=== PATIENT | male | born 1940 | race Caucasian/White ===

== ENCOUNTER → 2016-08-03 | Outpatient (CLI) | payer OTHER ==
[~2016-08-03] MED LIST: AMLO-110 PO; ATEN50TA8 PO; CLOP1TAB15 PO; EZET10TA63 PO; FRS/80 PO; POTA20TA13 PO; ROSU20TA PO; SPIR100T PO
[2016-08-03 11:43] LABS: ALT/SGPT 28 U/L (12-78); BLOOD UREA NITROGEN 25 mg/dl (7-18); BUN/CREATININE RATIO 15.4 (10-20); CALCIUM 9.4 mg/dl (8.5-10.1); CARBON DIOXIDE 25 mmol/L (21-32); CHLORIDE 106 mmol/L (98-107); GLUCOSE 105 mg/dl (70-99); POTASSIUM 4.2 mmol/L (3.5-5.1); SODIUM 141 mmol/L (136-145)
[2016-08-03 11:45] LABS: CHOLESTEROL 143 mg/dl (0-200); CHOLESTEROL/HDL RATIO 3.8; HDL CHOLESTEROL 38 mg/dl; TRIGLYCERIDES 442 mg/dl (0-150)
[2016-08-03 11:51] LABS: ESTIMATED AVERAGE GLUCOSE 120 mg/dl; HA1C FLAG Normal (Normal)
== END | disposition home or self-care (01) ==
LOC: C.LAB1850 10:20
PROVIDERS: ATTEND Family Medicine
DX: E78.00 Pure hypercholesterolemia, unspecified (principal); I10 Essential (primary) hypertension; R73.9 Hyperglycemia, unspecified

== ENCOUNTER → 2017-02-05 | Outpatient (CLI) | payer OTHER ==
[2017-02-05 12:36] LABS: ESTIMATED AVERAGE GLUCOSE 126 mg/dl; HA1C FLAG Normal (Normal)
[2017-02-05 15:13] LABS: ALT/SGPT 25 U/L (12-78); BLOOD UREA NITROGEN 20 mg/dl (7-18); BUN/CREATININE RATIO 14.5 (10-20); CALCIUM 8.8 mg/dl (8.5-10.1); CARBON DIOXIDE 23 mmol/L (21-32); CHLORIDE 110 mmol/L (98-107); CHOLESTEROL 140 mg/dl (0-200); GLUCOSE 106 mg/dl (70-99); POTASSIUM 3.9 mmol/L (3.5-5.1); SODIUM 140 mmol/L (136-145); TRIGLYCERIDES 330 mg/dl (0-150); VERY LOW DENSITY LIPOPROT CALC 66 mg/dl
[2017-02-05 15:17] LABS: HDL CHOLESTEROL 35 mg/dl; LDL CHOLESTEROL CALCULATED 39 mg/dl
== END | disposition home or self-care (01) ==
LOC: C.LAB1850 10:14
PROVIDERS: ATTEND Family Medicine
DX: E78.00 Pure hypercholesterolemia, unspecified (principal); I10 Essential (primary) hypertension; R73.9 Hyperglycemia, unspecified

== ENCOUNTER → 2017-08-05 | Outpatient (CLI) | payer OTHER ==
[2017-08-05 09:53] LABS: ALT/SGPT 20 U/L (12-78); BLOOD UREA NITROGEN 19 mg/dl (7-18); CALCIUM 8.8 mg/dl (8.5-10.1); CARBON DIOXIDE 25 mmol/L (21-32); CREATININE 1.48 mg/dl (0.60-1.40); GLUCOSE 96 mg/dl (70-99); POTASSIUM 3.6 mmol/L (3.5-5.1); SODIUM 141 mmol/L (136-145)
[2017-08-05 09:56] LABS: CHOLESTEROL 123 mg/dl (0-200); LDL CHOLESTEROL CALCULATED 54 mg/dl
== END | disposition home or self-care (01) ==
LOC: C.LAB1850 07:22
PROVIDERS: ATTEND Family Medicine
DX: E78.00 Pure hypercholesterolemia, unspecified (principal); I10 Essential (primary) hypertension; R73.9 Hyperglycemia, unspecified

== ENCOUNTER 2019-01-21 10:35 | Inpatient (IN) ==
[2019-01-21] MEDS ORDERED: ALBUT/IPRATROP 3MG/0.5MG NEB 3 ML VIAL NEB STA (10:47)
[2019-01-21] MEDS ORDERED: SODIUM CHLORIDE 0.9% 500 ML IV SCH (11:00)
[2019-01-21 11:17] LABS: Basophils # (auto) 0.03 K/uL (0-0.2); Basophils % (auto) 0.3 %; Eosinophils # (auto) 0.17 K/uL (0-0.5); Eosinophils % (auto) 1.8 %; Hematocrit (blood only) 34.8 % (42-52); Hemoglobin 11.8 g/dL (14.0-18.0); Immature Granulocytes # (auto) 0.05 K/uL (0.00-0.02); Immature Granulocytes % (auto) 0.5 %; Lymphocytes # (auto) 1.78 K/uL (1.2-3.4); Lymphocytes % (auto) 19.2 %; Mean Corpuscular Hgb Conc 33.9 g/dL (32-36); Mean Corpuscular Volume 95.1 fL (80-100); Mean Platelet Volume 11.6 fL (7.4-10.4); Monocytes # (auto) 1.03 K/uL (0.11-0.59); Monocytes % (auto) 11.1 %; Neutrophils % (auto) 67.1 %; Platelet Count 350 K/uL (130-400); RDW Coefficient of Variation 12.8 % (11.5-14.5); RDW Standard Deviation 44.2 fL (36.4-46.3); Red Blood Count 3.66 M/uL (4.7-6.1); White Blood Count 9.26 K/uL (4.8-10.8)
--- NOTE | 2019-01-21 11:26 | XRay Report ---
XR chest 1V portable HISTORY: 79 years-old Male weakness acute weakness COMPARISON: Chest CT 12/14/2017 TECHNIQUE: Portable AP view of the chest FINDINGS: Chronic subpleural reticular opacities, greatest within the right upper lobe are redemonstrated. Prog ressive opacities of the right upper lobe. Severe emphysema with hyperinflation. Cardiomediastinal an d hilar silhouettes are unchanged. Calcification of the thoracic aortic arch. No pneumothorax, large pleural effusion or overt pulmonary edema. Chronic blunting of the costophrenic angles. Degenerative changes of the shoulders and spine. IMPRESSION: 1. Emphysema with chronic fibrotic changes redemonstrated. 2. Slightly progressed opacities of the right upper lobe may also reflect areas of fibrosis with a smith perimposed pneumonitis difficult to exclude. Correlate clinically. 3. Mild cardiomegaly without overt pulmonary edema. The above report was generated using voice recognition software. It may contain grammatical, syntax o r spelling errors. Electronically signed by: Italo Solis M.D. 01/21/2019 11:25 AM
[2019-01-21 11:32] LABS: Alanine Aminotransferase 25 U/L (12-78); Albumin Level 3.8 gm/dl (3.4-5.0); Aspartate Aminotransferase 23 U/L (15-37); Blood Urea Nitrogen 70 mg/dl (7-18); Calcium 9.5 mg/dl (8.5-10.1); Carbon Dioxide 24 mmol/L (21-32); Chloride 99 mmol/L (98-107); Est GFR (African American) 34.2; Est GFR (Non-African American) 29.5; Glucose 92 mg/dl (70-99); Magnesium 2.1 mg/dl (1.8-2.4); Sodium 133 mmol/L (136-145)
--- NOTE | 2019-01-21 11:42 | CT Scan Report ---
CT head/brain wo con CLINICAL HISTORY: 79 years-old Male with confusion, off balance. Acutely altered mental status TECHNIQUE: Multiple axial CT images of the head were obtained without contrast. A dose lowering tech nique was utilized adhering to the principles of ALARA. CT DOSE: 537.48 mGy.cm COMPARISON: None. FINDINGS: No acute intracranial hemorrhage, midline shift, intracranial mass, hydrocephalus, territorial ischem ia or abnormal extra-axial collection. Age-related involutional changes with mild ex vacuo ventriculo megaly. Cerebral vascular calcifications are noted. The calvarium is intact. The paranasal sinuses, mastoid air cells, and middle ear cavities are clear . IMPRESSION: No acute intracranial abnormality. The above report was generated using voice recognition software. It may contain grammatical, syntax o r spelling errors. Electronically signed by: Italo Solis M.D. 01/21/2019 11:41 AM
[2019-01-21 11:43] LABS: Albumin Globulin Ratio 0.8 (0.9-2); Alkaline Phosphatase 39 U/L (45-117); Bilirubin,Total 0.5 mg/dl (0.2-1); Globulin 4.7 gm/dl (2.5-4.0); Total Protein 8.5 gm/dl (6.4-8.2); Troponin I 0.023 ng/ml (0-0.045)
[2019-01-21] MEDS ORDERED: SODIUM CHLORIDE 0.9% 1000ML 1,000 ML IV ONE (11:53)
[2019-01-21 12:17] LABS: Appearance Urine Cloudy (Clear); Bacteria Urine Automated Negative (Negative); Bilirubin Urine Negative (Negative); Blood Urine Negative (Negative); Color Urine Yellow; Epithelial Cell Urine Auto >30 /lpf (0-5); Glucose Urine UA Negative (Negative); Ketones Urine Negative (Negative); Leukocyte Esterase Urine 1+ (Negative); Nitrite Urine Negative (Negative); Protein Urine Negative (Negative); RBC Urine Automated 0-4 /hpf (0-4); Specific Gravity Urine 1.016 (1.000-1.030); Urobilinogen Urine Negative (Negative)
--- NOTE | 2019-01-21 12:45 | History & Physical Report ---
Date of Service January 21, 2019 Assessment & Plan (1) Orthostasis: Hold antihypertensives and diuretics. Administer IV fluids. Telemetry Present on Admission?: Yes (2) Dehydration: Hold diuretics. Administer IV fluids. Monitor intake and output Present on Admission?: Yes (3) XOCHITL (acute kidney injury): Hold diuretics. Administer IV fluids. Serial lab studies Present on Admission?: Yes (4) Sinus bradycardia: Telemetry. Discontinue low-dose atenolol Present on Admission?: Yes (5) Chronic kidney disease, stage 3: See above Present on Admission?: Yes (6) COPD (chronic obstructive pulmonary disease): Stable. Continue Combivent inhaler (7) Chronic respiratory failure: Stable. Continue oxygen at 4 L/min (8) DVT prophylaxis: Heparin subcu History of Present Illness Chief Complaint: Weakness, altered mental status Primary Care Provider: Yisel Pittman MD 79-year-old male who lives alone who is found to have altered mental status today and sent to the ED for evaluation. He was found to be volume depleted with acute kidney injury with orthostatic hypotension. He is on multiple blood pressure medications and diuretics. He is also on atenolol and is noted to be bradycardic in the 50s. At the time of my examination he is alert and oriented to name and place. Family is in attendance. He is a full CODE STATUS. He is on low-dose atenolol which will be discontinued at this time. He is receiving IV fluids. Will stop all diuretics for the time being and also hold amlodipine. He has COPD with chronic respiratory failure and normally uses 4 L of oxygen per minute. Chest x-ray reveals scarring and emphysema. He is admitted for further evaluation and treatment Allergies Allergy/AdvReac Type Severity Reaction Status Date / Time No Known Allergies Allergy Verified 01/21/19 12:14 Home Medications Home Medications Medication Instructions Recorded Confirmed Type amlodipine 5 mg PO QAM 01/15/19 01/21/19 History atenolol 12.5 mg PO QAM 01/15/19 01/21/19 History clopidogrel 75 mg PO QAM 01/15/19 01/21/19 History fenofibrate nanocrystallized 145 mg PO QAM 01/15/19 01/21/19 History furosemide 40 mg PO QAM 01/15/19 01/21/19 History hydrocodone-acetaminophen 1 tab PO TID PRN 01/15/19 01/21/19 History ipratropium-albuterol [Combivent 1 puff INHALATION QID 01/15/19 01/21/19 History Respimat] omeprazole 20 mg PO QAM 01/15/19 01/21/19 History rosuvastatin 20 mg PO QAM 01/15/19 01/21/19 History tiotropium bromide [Spiriva with 1 cap INHALATION DAILY 01/15/19 01/21/19 History HandiHaler] potassium chloride 20 meq PO QAM 01/21/19 01/21/19 History spironolactone 100 mg PO QAM 01/21/19 01/21/19 History Past Med/Surg History Social History Feels Safe at Home: Yes Smoking Status: Never smoker Review of Systems Review of Systems: Constitutional-no fever or chills ENT-no blurred vision, no double vision, no epistaxis, no sore throat Respiratory-no cough, no wheezing, no shortness of breath Cardiac-no palpitations, no chest pain, no syncope GI-no nausea, vomiting, diarrhea, melena, hematochezia -no urinary retention, no urinary incontinence, no dysuria, no hematuria Musculoskeletal-no joint pain, no muscle tenderness Skin-no bruising, no rashes, no pruritus Neuro-altered mental status with more confusion. Psych-no depression, no anxiety Physical Exam Physical Exam: General-alert and oriented x2, no fevers, no chills HEENT-head atraumatic and normocephalic, TMs intact bilaterally, pupils equal and reactive to light, extraocular muscles intact Neck-no lymphadenopathy or thyromegaly, trachea midline Chest-bilateral inspiratory coarse rales. No rhonchi. No wheezing. No dullness to percussion Cardiac-bradycardic regular rhythm. Normal S1 and S2. No JVD Abdomen-normal bowel sounds, nontender, no hepatosplenomegaly Extremities-no cyanosis, clubbing, or edema Neuro-cranial nerves II through XII intact, motor and sensory function within normal limits, strength symmetrical with mild generalized weakness, no focal deficits Psych-normal affect, normal mood. He appears to have some baseline dementia Results & Data Vital Signs (Past 12 Hours) Vital Signs Temp Pulse Pulse Pulse Resp BP BP 01/21/19 11:54 57 L 20 106/49 L 01/21/19 11:04 61 16 01/21/19 10:55 36.4 C L 90 66 18 147/55 H Pulse Ox 01/21/19 11:54 96 01/21/19 11:04 100 01/21/19 10:55 97 Laboratory Results 01/21/19 10:56 01/21/19 10:56 PG Care Time/CCT Total # of Minutes Spent Total Time Spent with Patient: Total time spent is greater than 50% in coordination of care (as documented) at patient's floor/unit and/or counseling patient:
--- NOTE | 2019-01-21 13:01 | Emergency Department Note ---
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 Per patient water pump operator, the patient when to his PCP last week for abdominal pain. Per water pump operator, the patient was diagnosed with severe intestinal inflammation and was put on medicine. The patients water pump operator states that the patient has had a fever today with dizziness and lightheadedness--he has been off balance. The patient denies diarrhea, vomiting and pain. Per water pump operator, the patient has not had any treatment prior to arrival, including a breathing treatment. Home Medications Home Medications Medication Instructions Recorded Confirmed Type amlodipine 5 mg PO QAM 01/15/19 01/21/19 History atenolol 12.5 mg PO QAM 01/15/19 01/21/19 History clopidogrel 75 mg PO QAM 01/15/19 01/21/19 History fenofibrate nanocrystallized 145 mg PO QAM 01/15/19 01/21/19 History furosemide 40 mg PO QAM 01/15/19 01/21/19 History hydrocodone-acetaminophen 1 tab PO TID PRN 01/15/19 01/21/19 History ipratropium-albuterol [Combivent 1 puff INHALATION QID 01/15/19 01/21/19 History Respimat] omeprazole 20 mg PO QAM 01/15/19 01/21/19 History rosuvastatin 20 mg PO QAM 01/15/19 01/21/19 History tiotropium bromide [Spiriva with 1 cap INHALATION DAILY 01/15/19 01/21/19 History HandiHaler] potassium chloride 20 meq PO QAM 01/21/19 01/21/19 History spironolactone 100 mg PO QAM 01/21/19 01/21/19 History Allergies Allergy/AdvReac Type Severity Reaction Status Date / Time No Known Allergies Allergy Verified 01/21/19 12:14 Past Med/Surg History Medical History Chronic respiratory failure (Chronic) COPD (chronic obstructive pulmonary disease) (Chronic) Sinus bradycardia (Acute) XOCHITL (acute kidney injury) (Acute) Orthostasis (Acute) Dehydration (Acute) Acute respiratory failure with hypoxia HTN (hypertension) CVA (cerebral vascular accident) Carotid bruit present Chronic kidney disease, stage 3 Chronic venous insufficiency Dysphagia Social History Feels Safe at Home: Yes Smoking Status: Never smoker Review of Systems See HPI for pertinent positives & negatives. and A total of 10 systems reviewed and were otherwise negative Physical Exam Vital Signs Vital Signs - 24 hr 01/21/19 10:55 01/21/19 11:04 01/21/19 11:47 Temperature 36.4 C L Temperature Source Oral Sepsis Recent Fever Within 48 Hours No Sepsis Action Taken by Nursing No Action Required Pulse Rate - Lying 49 L Pulse Rate - Sitting 87 Pulse Rate - Standing 76 Pulse Rate 90 Pulse Rate [Apical] 66 Pulse Rate [Finger] 61 Respiratory Rate 18 16 Respiratory Effort / Characteristics Spontaneous Blood Pressure - Lying 115/49 L Blood Pressure - Sitting 135/118 H Blood Pressure- Standing 93/48 L Blood Pressure 147/55 H Blood Pressure [Left Arm] Blood Pressure Mean 85 Blood Pressure Mean [Left Arm] Pulse Oximetry 97 100 Oxygen Delivery Method Nasal Cannula Nasal Cannula Oxygen Flow Rate 4 4 01/21/19 11:54 Temperature Temperature Source Sepsis Recent Fever Within 48 Hours Sepsis Action Taken by Nursing Pulse Rate - Lying Pulse Rate - Sitting Pulse Rate - Standing Pulse Rate Pulse Rate [Apical] Pulse Rate [Finger] 57 L Respiratory Rate 20 Respiratory Effort / Characteristics Blood Pressure - Lying Blood Pressure - Sitting Blood Pressure- Standing Blood Pressure Blood Pressure [Left Arm] 106/49 L Blood Pressure Mean Blood Pressure Mean [Left Arm] 68 Pulse Oximetry 96 Oxygen Delivery Method Nasal Cannula Oxygen Flow Rate 4 GENERAL: Patient is in no acute distress. HEENT: No acute trauma, normocephalic atraumatic, mucous membranes moist, no nasal congestion, no scleral icterus. NECK: No stridor, no adenopathy, no meningismus, trachea is midline. LUNGS: Diminished breath sounds bilaterally, few wheezes and few crackles bilaterally. HEART: Without murmurs gallops or rubs, regular rate and rhythm. ABDOMEN: Soft, nontender, bowel sounds positive, no hernias, no peritonitis. EXTREMITIES: No cyanosis or edema, full range of motion of all the joints without pain or difficulty, no signs for acute trauma. NEUROLOGIC: Some mild confusion but patient can follow simple commands, no focal motor deficit, awake and seems alert, no cerebellar dysfunction or extremity drift. SKIN: No rash, no jaundice, no diaphoresis. Course 1042: Past medical records reviewed. The patient was evaluated in room B8. A complete history and physical exam was performed. 1154: Orthostatic vital signs are positive. 1204: I discussed the patient's case with Dr. Dan [facility] Hospitalist. He will evaluate the patient for further management. 1206: I updated the patient and water pump operator on the plan. They verbally agree and understand. Consultations Consultation #1: I discussed the patient's case with Dr. Dan [facility] Hospitalist. He will evaluate the patient for further management. Time: 12:04 Administered Medications Discontinued Medications Albuterol (Duoneb) 3 ml NEB NOW STA Stop: 01/21/19 10:48 Last Admin: 01/21/19 11:00 Dose: 3 ml Documented by: [id number] Sodium Chloride (Nss) 500 mls @ 999 mls/hr IV .Q31M STEFAN Stop: 01/21/19 11:30 Last Infusion: 01/21/19 12:31 Dose: 0 mls/hr Documented by: [id number] Admin: 01/21/19 11:58 Dose: 999 mls/hr Documented by: [id number] Sodium Chloride (Nss 1000ml) 1,000 mls @ 999 mls/hr IV .Q1H1M ONE Stop: 01/21/19 12:53 Last Infusion: 01/21/19 13:00 Dose: 0 mls/hr Documented by: [id number] Admin: 01/21/19 11:58 Dose: 999 mls/hr Documented by: [id number] Medical Decision Making Differential Diagnosis Differentials include anemia, NM, dehydration, electrolyte imbalance, pneumonia, CHF, bronchitis, stroke, intracranial bleeding. Medical Records Attestation: I reviewed the patient's medical records. Home Medications Current Medication List: was personally reviewed by me Laboratory Data Attestation: I reviewed the patient's lab results. Result diagrams: 01/21/19 10:56 01/21/19 10:56 Lab Results 01/21/19 01/21/19 01/21/19 Range/Units 10:56 10:56 10:56 WBC 9.26 (4.8-10.8) K/uL RBC 3.66 L (4.7-6.1) M/uL Hgb 11.8 L (14.0-18.0) g/dL Hct 34.8 L (42-52) % MCV 95.1 (80-100) fL MCH 32.2 (25-34) pg MCHC 33.9 (32-36) g/dL RDW Std Deviation 44.2 (36.4-46.3) fL RDW Coeff of Brandon 12.8 (11.5-14.5) % Plt Count 350 (130-400) K/uL MPV 11.6 H (7.4-10.4) fL Immature Gran % (Auto) 0.5 % Neut % (Auto) 67.1 % Lymph % (Auto) 19.2 % Marin % (Auto) 11.1 % Eos % (Auto) 1.8 % Baso % (Auto) 0.3 % Immature Gran # (Auto) 0.05 H (0.00-0.02) K/uL Neut # (Auto) 6.20 (1.4-6.5) K/uL Lymph # (Auto) 1.78 (1.2-3.4) K/uL Marin # (Auto) 1.03 H (0.11-0.59) K/uL Eos # (Auto) 0.17 (0-0.5) K/uL Baso # (Auto) 0.03 (0-0.2) K/uL Sodium 133 L (136-145) mmol/L Potassium 5.0 (3.5-5.1) mmol/L Chloride 99 (98-107) mmol/L Carbon Dioxide 24 (21-32) mmol/L Anion Gap 10.0 (3-11) BUN 70 H (7-18) mg/dl Creatinine 2.06 H (0.6-1.4) mg/dl Est Cr Clr Drug Dosing Not Reportable Est GFR ( Amer) 34.2 Est GFR (Non-Af Amer) 29.5 BUN/Creatinine Ratio 34.0 H (10-20) Glucose 92 (70-99) mg/dl Calcium 9.5 (8.5-10.1) mg/dl Magnesium 2.1 (1.8-2.4) mg/dl Total Bilirubin 0.5 (0.2-1) mg/dl AST 23 (15-37) U/L ALT 25 (12-78) U/L Alkaline Phosphatase 39 L (45-117) U/L Troponin I 0.023 (0-0.045) ng/ml Total Protein 8.5 H (6.4-8.2) gm/dl Albumin 3.8 (3.4-5.0) gm/dl Globulin 4.7 H (2.5-4.0) gm/dl Albumin/Globulin Ratio 0.8 L (0.9-2) TSH 2.620 (0.300-4.500) uIu/ml Free T4 0.97 (0.8-1.6) ng/dl Urine Color Urine Appearance (Clear) Urine pH (4.5-7.5) Ur Specific Sparkman (1.000-1.030) Urine Protein (Negative) Urine Glucose (UA) (Negative) Urine Ketones (Negative) Urine Blood (Negative) Urine Nitrite (Negative) Urine Bilirubin (Negative) Urine Urobilinogen (Negative) Ur Leukocyte Esterase (Negative) Urine WBC (Auto) (0-5) /hpf Urine RBC (Auto) (0-4) /hpf U Hyaline Cast (Auto) (0-5) /lpf U Epithel Cells (Auto) (0-5) /lpf Urine Bacteria (Auto) (Negative) 01/21/19 Range/Units 12:00 WBC (4.8-10.8) K/uL RBC (4.7-6.1) M/uL Hgb (14.0-18.0) g/dL Hct (42-52) % MCV (80-100) fL MCH (25-34) pg MCHC (32-36) g/dL RDW Std Deviation (36.4-46.3) fL RDW Coeff of Brandon (11.5-14.5) % Plt Count (130-400) K/uL MPV (7.4-10.4) fL Immature Gran % (Auto) % Neut % (Auto) % Lymph % (Auto) % Marin % (Auto) % Eos % (Auto) % Baso % (Auto) % Immature Gran # (Auto) (0.00-0.02) K/uL Neut # (Auto) (1.4-6.5) K/uL Lymph # (Auto) (1.2-3.4) K/uL Marin # (Auto) (0.11-0.59) K/uL Eos # (Auto) (0-0.5) K/uL Baso # (Auto) (0-0.2) K/uL Sodium (136-145) mmol/L Potassium (3.5-5.1) mmol/L Chloride (98-107) mmol/L Carbon Dioxide (21-32) mmol/L Anion Gap (3-11) BUN (7-18) mg/dl Creatinine (0.6-1.4) mg/dl Est Cr Clr Drug Dosing Est GFR ( Amer) Est GFR (Non-Af Amer) BUN/Creatinine Ratio (10-20) Glucose (70-99) mg/dl Calcium (8.5-10.1) mg/dl Magnesium (1.8-2.4) mg/dl Total Bilirubin (0.2-1) mg/dl AST (15-37) U/L ALT (12-78) U/L Alkaline Phosphatase (45-117) U/L Troponin I (0-0.045) ng/ml Total Protein (6.4-8.2) gm/dl Albumin (3.4-5.0) gm/dl Globulin (2.5-4.0) gm/dl Albumin/Globulin Ratio (0.9-2) TSH (0.300-4.500) uIu/ml Free T4 (0.8-1.6) ng/dl Urine Color Yellow Urine Appearance Cloudy A (Clear) Urine pH 5.0 (4.5-7.5) Ur Specific Sparkman 1.016 (1.000-1.030) Urine Protein Negative (Negative) Urine Glucose (UA) Negative (Negative) Urine Ketones Negative (Negative) Urine Blood Negative (Negative) Urine Nitrite Negative (Negative) Urine Bilirubin Negative (Negative) Urine Urobilinogen Negative (Negative) Ur Leukocyte Esterase 1+ H (Negative) Urine WBC (Auto) 5-10 H (0-5) /hpf Urine RBC (Auto) 0-4 (0-4) /hpf U Hyaline Cast (Auto) 5-10 H (0-5) /lpf U Epithel Cells (Auto) >30 H (0-5) /lpf Urine Bacteria (Auto) Negative (Negative) Imaging Data Radiologist's Impression: Radiology results as stated below per my review and the radiologist's interpretation: CT head/brain wo con CLINICAL HISTORY: 79 years-old Male with confusion, off balance. Acutely altered mental status TECHNIQUE: Multiple axial CT images of the head were obtained without contrast. A dose lowering technique was utilized adhering to the principles of ALARA. CT DOSE: 537.48 mGy.cm COMPARISON: None. FINDINGS: No acute intracranial hemorrhage, midline shift, intracranial mass, hyd rocephalus, territorial ischemia or abnormal extra-axial collection. Age-related involutional changes with mild ex vacuo ventriculomegaly. Cerebral vascular calcifications are noted. The calvarium is intact. The paranasal sinuses, mastoid air cells, and middle ear cavities are clear. IMPRESSION: No acute intracranial abnormality. The above report was generated using voice recognition software. It may contain grammatical, syntax or spelling errors. Electronically signed by: Italo Solis M.D. 01/21/2019 11:41 AM XR chest 1V portable HISTORY: 79 years-old Male weakness acute weakness COMPARISON: Chest CT 12/14/2017 TECHNIQUE: Portable AP view of the chest FINDINGS: Chronic subpleural reticular opacities, greatest within the right upper lobe are redemonstrated. Progressive opacities of the right upper lobe. Severe emphysema with hyperinflation. Cardiomediastinal and hilar silhouettes are unchanged. Calcification of the thoracic aortic arch. No pneumothorax, large pleural effusion or overt pulmonary edema. Chronic blunting of the costophrenic angles. Degenerative changes of the shoulders and spine. IMPRESSION: 1. Emphysema with chronic fibrotic changes redemonstrated. 2. Slightly progressed opacities of the right upper lobe may also reflect areas of fibrosis with a superimposed pneumonitis difficult to exclude. Correlate clinically. 3. Mild cardiomegaly without overt pulmonary edema. The above report was generated using voice recognition software. It may contain grammatical, syntax or spelling errors. Electronically signed by: Italo Solis M.D. 01/21/2019 11:25 AM ECG Data Attestation: I personally reviewed and interpreted this ECG as follows: Indication: weakness Rate (beats per minute): 57 Rhythm: sinus bradycardia Findings: + other (old anterior infarct, old inferior infarct); no ST elevation Blood Pressure Blood Pressure Findings: Low blood pressure Blood Pressure Disposition: further management by hospitalist MDM Narrative There is no leukocytosis. The patient is somewhat anemic but this is baseline looking back at previous testing. Creatinine is quite elevated at over 2, this is a change for the patient. The patient is orthostatic by our testing, I suspect he is quite dehydrated. No concerning liver enzyme elevation. Patient appeared to be in a euthyroid state. EKG showed a sinus rhythm, no acute ischemia. Cardiac enzyme testing x1 is not consistent with acute cardiac injury. Urinalysis does not show infection. Brain CT shows no acute bleed or mass-effect. Chest film shows some chronic findings, no obvious pneumonia, no CHF. The patient was given a DuoNeb. He received IV saline, 1.5 L. He seems to be resting fairly comfortably at present. Patient presents with weakness, dizziness and shortness of breath. He was orthostatic. He is quite dehydrated and has acute kidney injury. I do think a hospital stay is warranted. I spoke to the patient and case management assistant. The on- call hospitalist was consulted. Impression & Plan XOCHITL (acute kidney injury), Orthostasis, Weakness, Dehydration Discharge Plan Visit Data *Final* Discharge Date/Time: 01/21/19 13:12 Chief Complaint: Dizziness ED Provider: Sebastián Hernández Discharge Problem: XOCHITL (acute kidney injury), Orthostasis, Weakness, Dehydration Patient Disposition: Admitted As Inpatient Discharge Instructions Interventions: ED Discharge Assessment Last Done: 01/21/19 13:12 The scribe's documentation has been prepared under my direction and personally reviewed by me in its entirety. I confirm that the note above accurately reflects all work, treatment, procedures, and medical decision making performed by me.
[2019-01-21] MEDS ORDERED: ALUMINUM/MAGNESIUM SUSP 30 ML UDC PO PRN (14:08)
[2019-01-21] MEDS ORDERED: ONDANSETRON INJ 2 MG/ML 2 ML VIAL IV PRN (14:08)
[2019-01-21] MEDS: SODIUM CHLORIDE 0.9% 1000ML 1,000 ML IV SCH (14:50)
[2019-01-21 15:21] LABS: INR 1.2 (0.9-1.1); Partial Thromboplastin Ratio 0.9; Partial Thromboplastin Time 25.5 Seconds (21.0-31.0); Prothrombin Time 11.8 Seconds (9.0-12.0)
[2019-01-21] MEDS: IPRATROPIUM BROMIDE/ALBUTEROL respimat INH INH SCH ×3 (16:48→20:56)
[2019-01-21] MEDS: HEPARIN SOD 5,000 UNIT/0.5 ML VIAL SQ SCH (20:56)
[2019-01-22] MEDS: SODIUM CHLORIDE 0.9% 1000ML 1,000 ML IV SCH ×2 (03:02→14:49)
[2019-01-22] MEDS: ACETAMINOPHEN 325 MG TAB PO PRN (03:58)
[2019-01-22] MEDS: IPRATROPIUM BROMIDE/ALBUTEROL respimat INH INH SCH ×4 (07:48→21:27)
[2019-01-22] MEDS: HEPARIN SOD 5,000 UNIT/0.5 ML VIAL SQ SCH ×2 (07:48→21:33)
[2019-01-22] MEDS: FENOFIBRATE NANOCRYSTALLIZED 145 MG TABLET PO SCH (07:49)
[2019-01-22] MEDS: CLOPIDOGREL BISULFATE 75 MG TAB PO SCH (07:49)
[2019-01-22] MEDS: ROSUVASTATIN CALCIUM 20 MG TAB PO SCH (07:49)
[2019-01-22] MEDS: PANTOprazole 40 MG TAB PO SCH (07:49)
[2019-01-22] MEDS: TIOTROPIUM BROMIDE 5 PUFF/90 MCG INH INH SCH (07:49)
[2019-01-22 08:13] LABS: Basophils # (auto) 0.03 K/uL (0-0.2); Basophils % (auto) 0.3 %; Hematocrit (blood only) 29.6 % (42-52); Hemoglobin 9.8 g/dL (14.0-18.0); Immature Granulocytes # (auto) 0.04 K/uL (0.00-0.02); Immature Granulocytes % (auto) 0.4 %; Lymphocytes # (auto) 1.67 K/uL (1.2-3.4); Mean Corpuscular Hgb Conc 33.1 g/dL (32-36); Mean Platelet Volume 11.4 fL (7.4-10.4); Monocytes # (auto) 0.97 K/uL (0.11-0.59); Monocytes % (auto) 9.9 %; Neutrophils # (auto) 6.92 K/uL (1.4-6.5); Neutrophils % (auto) 70.4 %; Platelet Count 240 K/uL (130-400); RDW Standard Deviation 45.7 fL (36.4-46.3); Red Blood Count 3.05 M/uL (4.7-6.1); White Blood Count 9.83 K/uL (4.8-10.8)
[2019-01-22 08:53] LABS: BUN Creatinine Ratio 31.9 (10-20); Calcium 8.6 mg/dl (8.5-10.1); Creatinine Clr Calc Pharmacy 35.7 ml/min; Est GFR (African American) 44.1; Est GFR (Non-African American) 38.1; Potassium 4.1 mmol/L (3.5-5.1)
--- NOTE | 2019-01-22 15:04 | Hospitalist Progress Note ---
Date of Service January 22, 2019 Assessment & Plan (1) XOCHITL (acute kidney injury): Cr on admission was elevated at 2.0 with GFR of 29.5 one week prior to admission his Cr was 1.0 and GFR 67 Cr improved to 1.67 on IV fluids and by holding Lasix and Spironolactone starting to drink a little more, no diarrhea will keep on IV fluids today, likely stop tomorrow XOCHITL is due to dehydration (2) Dehydration: improving with IV fluids and holding diuretics making clear urine (3) Orthostasis: no longer feeling light headed now with volume repletion PT/OT consults (4) Sinus bradycardia: HR dropping into the 30s at times otherwise in junctional rhythm in the 50's due to Atenolol, this will be stopped on discharge (5) Drug toxicity: quite possible that Atenolol built up in system since it is renally excreted and he has bradycardia may take a few days for it to wash out Atenolol stopped indefinitely (6) Chronic kidney disease, stage 3: CKD stage III/II, baseline GFR ranges in high 40 to low 60's GFR up to 38.1 today (7) COPD (chronic obstructive pulmonary disease): Stable. Continue Combivent inhaler chronically on 4L NC says that he was not taking Spiriva due to cost will look into getting him assistance (8) Chronic respiratory failure: Stable. Continue oxygen at 4 L/min (9) DVT prophylaxis: Heparin subcu (10) Hematuria: resolved after one episode last night Subjective patient feeling a little better today with IV fluids he is eating and drinking a little more he had manuel placed last night for reported hematuria the manuel bag has clear, yellow urine, no signs of blood or clots asked RN to pull manuel and cancelled urology consult he has not been up walking much, will ask PT/OT to evaluate he denies chest pain, dyspnea, nausea, vomiting, diarrhea reviewed labs, Cr improved to 1.67 from 2.0 on admission with IV fluids electrolytes stable WBC is normal, Hb down to 9.8 from 11.8 but likely the 11.8 was falsely elevated with volume contraction on the monitor he is in junctional rhythm in the 50's, did experience drops into the 30's while resting Review of Systems Review of Systems: All systems reviewed & are unremarkable except as noted in HPI & below Constitutional: + fatigue and + weakness; no fever and no sweats Respiratory: no cough and no dyspnea Cardiovascular: no chest pain and no edema Gastrointestinal: no abdominal pain, no nausea, no vomiting, no constipation and no diarrhea/loose stools Physical Exam Constitutional: WD/WN, vitals as above Eyes: PERRL, conjunctivae normal, anicteric sclerae ENMT: external ear and nose normal, oropharynx normal Neck: trachea midline, no thyromegaly Respiratory: normal respiratory effort, lungs clear to auscultation Cardiovascular: Rate/Rhythm: regular rhythm and + bradycardic Heart Sounds: normal S1 and normal S2; no murmur Vessels: no JVD Extremities: normal capillary refill; no edema Gastrointestinal (Abdomen): normal bowel sounds, soft, nontender, no hepatosplenomegaly Musculoskeletal: no cyanosis or clubbing, extremities motor strength 5/5 Skin: no rashes, warm and dry Neurologic: patellar DTR's 2+ bilat, sensation intact and PERRL, EOMI, accommodation nl, no face palsy, no dysarthria Psychiatric: A+Ox3, euthymic affect Lymphatic: no cervical or axillary lymphadenopathy Results & Data Vital Signs (Past 12 Hours) Vital Signs Temp Pulse Pulse Resp BP Pulse Ox Pulse Ox 01/22/19 13:05 99 01/22/19 12:02 36.4 C L 52 L 16 111/55 L 100 01/22/19 08:13 36.5 C 53 L 16 110/45 L 100 01/22/19 08:00 48 L 01/22/19 04:46 36.5 C 57 L 20 126/60 94 Laboratory Results Laboratory Results - last 24 hr 01/21/19 01/22/19 01/22/19 14:42 07:45 07:45 WBC 9.83 RBC 3.05 L Hgb 9.8 L Hct 29.6 L MCV 97.0 MCH 32.1 MCHC 33.1 RDW Std Deviation 45.7 RDW Coeff of [place] 13.0 Plt Count 240 MPV 11.4 H Immature Gran % (Auto) 0.4 Neut % (Auto) 70.4 Lymph % (Auto) 17.0 Cass % (Auto) 9.9 Eos % (Auto) 2.0 Baso % (Auto) 0.3 Immature Gran # (Auto) 0.04 H Neut # (Auto) 6.92 H Lymph # (Auto) 1.67 Cass # (Auto) 0.97 H Eos # (Auto) 0.20 Baso # (Auto) 0.03 PT 11.8 INR 1.2 H APTT 25.5 PTT Ratio 0.9 Sodium 136 Potassium 4.1 D Chloride 105 Carbon Dioxide 25 Anion Gap 6.0 BUN 53 H Creatinine 1.67 H D Est Cr Clr Drug Dosing 35.7 Est GFR ( Amer) 44.1 Est GFR (Non-Af Amer) 38.1 BUN/Creatinine Ratio 31.9 H Glucose 91 Calcium 8.6 Medications Administered Current Inpatient Medications Acetaminophen (Tylenol) 650 mg PO Q4H PRN PRN Reason: Pain or Fever Stop: 02/20/19 14:07 Last Admin: 01/22/19 03:58 Dose: 650 mg Documented by: Al Hydrox/Mg Hydrox/Simethicone (Maalox) 15 ml PO Q4H PRN PRN Reason: Dyspepsia Stop: 02/20/19 14:07 Last Admin: 01/21/19 19:47 Dose: 15 ml Documented by: Albuterol (Combivent Respimat) 1 puffs INH QID [facility] Stop: 02/20/19 14:07 Last Admin: 01/22/19 12:51 Dose: 1 puffs Documented by: Clopidogrel Bisulfate (Plavix) 75 mg PO QAM [facility] Stop: 02/21/19 08:59 Last Admin: 01/22/19 07:49 Dose: 75 mg Documented by: [facility]ibrate (Tricor) [facility] [place] Stop: 02/21/19 08:59 Last Admin: 01/22/19 07:49 Dose: 145 mg Documented by: Heparin Sodium (Porcine) (Heparin Sodium (Porcine)) 5,000 units SQ Q12 [facility] Stop: 02/20/19 20:59 Last Admin: 01/22/19 07:48 Dose: 5,000 units Documented by: Sodium Chloride (Nss 1000ml) 1,000 mls @ 80 mls/hr IV .[id number] [facility] Stop: 02/20/19 14:29 Last Admin: 01/22/19 14:49 Dose: 80 mls/hr Documented by: Ondansetron HCl (Zofran) 4 mg IV Q6H PRN PRN Reason: Nausea Stop: 02/20/19 14:07 Pantoprazole Sodium (Protonix) 40 mg PO QAM [facility] Stop: 02/21/19 08:59 Last Admin: 01/22/19 07:49 Dose: 40 mg Documented by: Rosuvastatin Calcium (Crestor) 20 mg PO QAM [facility] Stop: 02/21/19 08:59 Last Admin: 01/22/19 07:49 Dose: 20 mg Documented by: Tiotropium [place] (Spiriva) 1 puffs INH DAILY [facility] Stop: 02/21/19 08:59 Last Admin: 01/22/19 07:49 Dose: 1 puffs Documented by: PG Care Time/CCT Total # of Minutes Spent Total Time Spent with Patient: Total time spent is greater than 50% in coordination of care (as documented) at patient's floor/unit and/or counseling patient:
[2019-01-23] MEDS: ACETAMINOPHEN 325 MG TAB PO PRN (02:29)
[2019-01-23] MEDS: SODIUM CHLORIDE 0.9% 1000ML 1,000 ML IV SCH (02:29)
[2019-01-23 06:24] LABS: Basophils # (auto) 0.02 K/uL (0-0.2); Basophils % (auto) 0.4 %; Eosinophils % (auto) 5.4 %; Hematocrit (blood only) 26.6 % (42-52); Hemoglobin 8.9 g/dL (14.0-18.0); Immature Granulocytes # (auto) 0.03 K/uL (0.00-0.02); Immature Granulocytes % (auto) 0.5 %; Lymphocytes # (auto) 1.15 K/uL (1.2-3.4); Lymphocytes % (auto) 20.8 %; Mean Corpuscular Hgb Conc 33.5 g/dL (32-36); Mean Platelet Volume 11.2 fL (7.4-10.4); Monocytes # (auto) 0.66 K/uL (0.11-0.59); Monocytes % (auto) 11.9 %; Neutrophils # (auto) 3.38 K/uL (1.4-6.5); Platelet Count 200 K/uL (130-400); RDW Coefficient of Variation 12.9 % (11.5-14.5); Red Blood Count 2.77 M/uL (4.7-6.1); White Blood Count 5.54 K/uL (4.8-10.8)
[2019-01-23 07:00] LABS: BUN Creatinine Ratio 23.6 (10-20); Creatinine Clr Calc Pharmacy 38.4 ml/min; Est GFR (African American) 48.3; Est GFR (Non-African American) 41.7; Potassium 3.8 mmol/L (3.5-5.1)
[2019-01-23] MEDS: CLOPIDOGREL BISULFATE 75 MG TAB PO SCH (09:39)
[2019-01-23] MEDS: IPRATROPIUM BROMIDE/ALBUTEROL respimat INH INH SCH ×2 (09:39→12:28)
[2019-01-23] MEDS: FENOFIBRATE NANOCRYSTALLIZED 145 MG TABLET PO SCH (09:39)
[2019-01-23] MEDS: PANTOprazole 40 MG TAB PO SCH (09:39)
[2019-01-23] MEDS: ROSUVASTATIN CALCIUM 20 MG TAB PO SCH (09:39)
[2019-01-23] MEDS: TIOTROPIUM BROMIDE 5 PUFF/90 MCG INH INH SCH (09:39)
[2019-01-23] MEDS: HEPARIN SOD 5,000 UNIT/0.5 ML VIAL SQ SCH (09:40)
[2019-01-23 13:06] LABS: Hematocrit (blood only) 30.7 % (42-52); Hemoglobin 10.3 g/dL (14.0-18.0)
--- NOTE | 2019-01-23 16:11 | Discharge Summary ---
Date of Service January 23, 2019 Admission HPI Per Admitting Provider 79-year-old male who lives alone who is found to have altered mental status today and sent to the ED for evaluation. He was found to be volume depleted with acute kidney injury with orthostatic hypotension. He is on multiple blood pressure medications and diuretics. He is also on atenolol and is noted to be bradycardic in the 50s. At the time of my examination he is alert and oriented to name and place. Family is in attendance. He is a full CODE STATUS. He is on low-dose atenolol which will be discontinued at this time. He is receiving IV fluids. Will stop all diuretics for the time being and also hold amlodipine. He has COPD with chronic respiratory failure and normally uses 4 L of oxygen per minute. Chest x-ray reveals scarring and emphysema. He is admitted for further evaluation and treatment Admission Exam Per Admitting Provider General-alert and oriented x2, no fevers, no chills HEENT-head atraumatic and normocephalic, TMs intact bilaterally, pupils equal and reactive to light, extraocular muscles intact Neck-no lymphadenopathy or thyromegaly, trachea midline Chest-bilateral inspiratory coarse rales. No rhonchi. No wheezing. No dullness to percussion Cardiac-bradycardic regular rhythm. Normal S1 and S2. No JVD Abdomen-normal bowel sounds, nontender, no hepatosplenomegaly Extremities-no cyanosis, clubbing, or edema Neuro-cranial nerves II through XII intact, motor and sensory function within normal limits, strength symmetrical with mild generalized weakness, no focal deficits Psych-normal affect, normal mood. He appears to have some baseline dementia Principal Diagnosis Acute kidney injury Discharge Exam Constitutional WD/WN, vitals as above Eyes PERRL, conjunctivae normal, anicteric sclerae ENMT external ear and nose normal, oropharynx normal Neck trachea midline, no thyromegaly Respiratory normal respiratory effort, lungs clear to auscultation Cardiovascular Rate/Rhythm: regular rhythm and + bradycardic Heart Sounds: normal S1 and normal S2; no murmur Vessels: no JVD Extremities: normal capillary refill; no edema Gastrointestinal (Abdomen) normal bowel sounds, soft, nontender, no hepatosplenomegaly Musculoskeletal no cyanosis or clubbing, extremities motor strength 5/5 Skin no rashes, warm and dry Neurologic patellar DTR's 2+ bilat, sensation intact and PERRL, EOMI, accommodation nl, no face palsy, no dysarthria Psychiatric A+Ox3, euthymic affect Lymphatic no cervical or axillary lymphadenopathy Discharge Data Allergies Allergy/AdvReac Type Severity Reaction Status Date / Time No Known Allergies Allergy Verified 01/29/19 08:57 Consultations 01/21/19 12:04 ED Decision to Admit Stat Ordered Studies 01/21/19 10:47 CT head/brain wo con Stat Hospital Course (1) XOCHITL (acute kidney injury): Cr on admission was elevated at 2.0 with GFR of 29.5 one week prior to admission his Cr was 1.0 and GFR 67 Cr improved to 1.5 on IV fluids and by holding Lasix and Spironolactone starting to drink a little more, no diarrhea stopped IV fluids morning of discharge eating and drinking much better (2) Dehydration: resolved with IV fluids and holding diuretics making clear urine (3) Orthostasis: no longer feeling light headed now with volume repletion PT/OT consults, clear to return to home (4) Sinus bradycardia: HR dropping into the 30s at times but only when sleeping otherwise in junctional rhythm in the 50's and 60's when awake due to Atenolol, this will be stopped on discharge (5) Drug toxicity: quite possible that Atenolol built up in system since it is renally excreted and he has bradycardia may take a few days for it to wash out Atenolol stopped indefinitely (6) Chronic kidney disease, stage 3: CKD stage III/II, baseline GFR ranges in high 40 to low 60's GFR up to baseline range (7) COPD (chronic obstructive pulmonary disease): Stable. Continue Combivent inhaler chronically on 4L NC says that he was not taking Spiriva due to cost will look into getting him assistance (8) Chronic respiratory failure: Stable. Continue oxygen at 4 L/min (9) Hematuria: resolved after one episode manuel removed the next day, urinating without difficulty and without hematuria if he would have further episodes could consider outpatient urology appt (10) DVT prophylaxis: Heparin subcu Total Time Total Time Spent Total Time Spent (In Minutes): 35 minutes Total Time Includes: Examination of the Patient, Discharge Planning and Medication Reconciliation Discharge Plan Discharge Items Patient Disposition: Home - Self-Care Reason For Visit: VOLUME DEPLETION,ORTHOSTATIC HYPOTENSION Discharge Diagnosis: Acute kidney injury Bradycardia Condition: Good Discharge Goals: Improve function and Increase independence Activity: Resume your previous activity Non-emergency contact: Primary Care Provider Call non-emergency contact if: you have any medication questions, your symptoms worsen and you have a fever Follow-up/Referrals: Yisel Pittman MD [Primary Care Provider] - 01/29/19 9:10 am (Please, follow up at Dr. Pittman's office with her associate, Violet TINSLEY, on January 29 at 9:10 am. *If you need to change this appointment, call their office at [phone]. IF YOU HAVE PROBLEMS WITH THE COPAYS OF YOUR MEDICATIONS, YOUR INSURANCE HAS A MEMBER'S ADVOCATE WHO MAY BE ABLE TO HELP YOU. YOU CAN REACH THE ADVOCATE BY CALLING [phone]. ) Diet: Heart Healthy Addtl Provider Instructions: Medications: see the changes below - ADVAIR: added, use this twice a day scheduled for COPD following medications are stopped, DO NOT take them again - AMLODIPINE: blood pressure medication that was stopped on admission, blood pressure stable - ATENOLOL: stopped due to slow heart rate, do not take again - SPIRONOLACTONE: stop this diuretic as you came in for dehydration Acute kidney injury: resolved, Cr down to 1.55 from 2.0, this is close to your baseline was due to dehydration, likely a result from poor intake and diuretic use for this reason, Spironolactone has been stopped to prevent this again Bradycardia: slow heart rate that is likely due to Atenolol, this medication has been stopped slowest heart rates are when you are sleeping which can be normal typical heart rate is in the 50-60 range while you are awake Evaluated by physical therapy, you are strong enough to return home COPD: you can take the Spiriva home with you, my lead pony rider checking to see if another medication would be more affordable will prescribe you Advair to use twice a day, you can take this in addition to the Spiriva for now FOLLOW UP - Dr. Pittman on 01/29 as scheduled Prescriptions: Continued potassium chloride 20 mEq tablet extended release 20 meq PO QAM RF: 0 furosemide 80 mg tablet 40 mg PO QAM RF: 0 rosuvastatin 20 mg tablet 20 mg PO QAM RF: 0 Combivent Respimat 20-100 mcg/actuation Mist 1 puff INHALATION QID RF: 0 Discontinued spironolactone 100 mg tablet 100 mg PO QAM RF: 0 atenolol 25 mg tablet 12.5 mg PO QAM RF: 0 amlodipine 5 mg tablet 5 mg PO QAM RF: 0 No Action fenofibrate nanocrystallized 145 mg tablet 145 mg PO DAILY Qty: 90 RF: 1 clopidogrel 75 mg tablet 75 mg PO DAILY Qty: 90 RF: 1 hydrocodone-acetaminophen 5-325 mg tablet 1 tab PO TID PRN (Reason: Pain) 10 Days Qty: 30 RF: 0 fluticasone propion-salmeterol [Advair Diskus] 250-50 mcg/dose blister with device 1 puffs INH BID Qty: 14 RF: 3 Stand-Alone Forms: [facility] Discharge Orders: Discharge Order (Routine); Ordered 01/23/19 Ordered By: Simone Nichols Admission Data Admit Date/Time: 01/21/19 12:47 Attending Provider: Simone Nichols Admit Provider: Jose Juarez Primary Care Provider: Yisel Pittman Service: Telemetry Other Interventions: Discharge Summary Assessment (RN) Last Done: 01/23/19 14:03 Pending Studies at Discharge: No DC Date/Time DO NOT enter until pt leaves facility: 01/23/19 15:43
== END 2019-01-23 15:43 | disposition home or self-care (01) | DRG 682 ==
LOC: ED 10:35 → SUATTDRO 12:47 → 2N 12:47
DX: Z79.899 Other long term (current) drug therapy; N17.9 Acute kidney failure, unspecified; J96.10 Chronic respiratory failure, unspecified whether with hypoxia or hypercapnia; G93.41 Metabolic encephalopathy; N18.3 Chronic kidney disease, stage 3 (moderate); T44.7X5A Adverse effect of beta-adrenoreceptor antagonists, initial encounter; I95.1 Orthostatic hypotension; J43.9 Emphysema, unspecified; Z79.02 Long term (current) use of antithrombotics/antiplatelets; E86.0 Dehydration; Z99.81 Dependence on supplemental oxygen; R00.1 Bradycardia, unspecified; R31.9 Hematuria, unspecified

== ENCOUNTER 2019-02-13 10:19 | Inpatient (IN) ==
--- NOTE | 2019-02-13 10:59 | Emergency Department Note ---
Entered by Emily Diego acting as a scribe for Munir Gamino DO History of Present Illness General Chief complaint: Shortness of Breath/Dyspnea Time Seen by Provider: 02/13/19 10:45 Source: patient and EMS Mode of arrival: EMS Limitations: no limitations History of Present Illness Onset (ago): day(s) 3 Location: chest Radiation: non-radiation Pain Consistency: + constant Relieved By: + other (Oxygen, DuoNeb) Exacerbated By: + movement Associated symptoms: + weakness and + other (+diarrhea, +lightheaded, -abdominal pain); no chest pain Treatments prior to arrival: other (DuoNeb, Oxygen) The patient is an 79 year old male who presents to the ED with complaints of shortness of breath. He was brought to the ED via EMS. A DuoNeb given in the field has provided some relief. He is always on 4 to 5L NC. Exertion worsens his symptoms. His family states he has experienced diarrhea recently. His stools have been "dark brown" in color. He last had diarrhea this morning. The patient also complains of feeling weak and lightheaded. He denies any abdominal pain or chest pain. Home Medications Home Medications Medication Instructions Recorded Confirmed Type Combivent Respimat 1 puff INHALATION QID 01/15/19 02/05/19 History furosemide 40 mg PO QAM 01/15/19 02/05/19 History rosuvastatin 20 mg PO QAM 01/15/19 02/05/19 History potassium chloride 20 meq PO QAM 01/21/19 02/05/19 History clopidogrel 75 mg tablet 75 mg PO DAILY #90 tab 01/28/19 02/05/19 Rx fenofibrate nanocrystallized 145 145 mg PO DAILY #90 tab 01/28/19 02/05/19 Rx mg tablet fluticasone 250 mcg-salmeterol 50 1 puffs INH BID #14 ea 01/30/19 02/05/19 Rx mcg/dose blistr powdr for inhalation Oxygen Home #1 ea 02/05/19 02/05/19 History aspirin 325 mg tablet 325 mg PO QAM #30 tab 02/05/19 02/13/19 History atenolol 25 mg tablet 25 mg PO .COMPLEX tab 02/05/19 02/05/19 History clopidogrel 75 mg tablet 75 mg PO DAILY #90 tab 02/05/19 02/05/19 History spironolactone 100 mg tablet 100 mg PO DAILY 02/05/19 02/05/19 History Allergies Allergy/AdvReac Type Severity Reaction Status Date / Time No Known Allergies Allergy Verified 02/13/19 11:35 Past Med/Surg History Medical History Chronic respiratory failure (Chronic) COPD (chronic obstructive pulmonary disease) (Chronic) Sinus bradycardia (Acute) XOCHITL (acute kidney injury) (Acute) Orthostasis (Acute) Dehydration (Acute) Acute respiratory failure with hypoxia HTN (hypertension) CVA (cerebral vascular accident) Carotid bruit present Chronic kidney disease, stage 3 Chronic venous insufficiency Dysphagia Family History Other Family history non-contributory Social History Preferred Language: Amharic Communication Ability: Effective Art History Instructor Required: No Beliefs That Will Affect Care: None Current Living Situation: Alone Current Living Situation Comment: friends live close by and check on pt frequently Feels Safe at Home: Yes Smoking Status: Former smoker Tobacco Type: cigarettes ; Second Hand Exposure: No ; Hx Alcohol Use: Yes Alcohol type: wine Hx Substance Use: No Review of Systems See HPI for pertinent positives & negatives. and A total of 10 systems reviewed and were otherwise negative Physical Exam Vital Signs Vital Signs - 24 hr 02/13/19 10:28 02/13/19 10:30 02/13/19 10:46 Temperature 36.2 C L Temperature Source Rectal Sepsis Recent Fever Within 48 Hours No Sepsis New/Unexplained Change in Mental Status No Sepsis Action Taken by Nursing No Action Required Oxygen Flow Rate - Titration 5 Pulse Oximetry Post Tiitration 98 Pulse Rate 97 H 92 H Pulse Rate from SpO2 Sensor 96 H 94 H Respiratory Rate 21 27 H Blood Pressure 107/58 L 108/43 L Blood Pressure Mean 74 64 Pulse Oximetry 91 91 Oxygen Delivery Method Nasal Cannula Oxygen Flow Rate 4 02/13/19 10:58 02/13/19 11:00 02/13/19 11:07 Temperature Temperature Source Sepsis Recent Fever Within 48 Hours Sepsis New/Unexplained Change in Mental Status Sepsis Action Taken by Nursing Oxygen Flow Rate - Titration Pulse Oximetry Post Tiitration Pulse Rate 98 H Pulse Rate from SpO2 Sensor 98 H Respiratory Rate 21 Blood Pressure 105/51 L Blood Pressure Mean 69 Pulse Oximetry 98 98 100 Oxygen Delivery Method Nasal Cannula Nasal Cannula Oxygen Flow Rate 5 4 02/13/19 11:30 Temperature Temperature Source Sepsis Recent Fever Within 48 Hours Sepsis New/Unexplained Change in Mental Status Sepsis Action Taken by Nursing Oxygen Flow Rate - Titration Pulse Oximetry Post Tiitration Pulse Rate 105 H Pulse Rate from SpO2 Sensor 97 H Respiratory Rate 20 Blood Pressure 115/54 L Blood Pressure Mean 74 Pulse Oximetry 100 Oxygen Delivery Method Oxygen Flow Rate CONSTITUTIONAL/VITAL SIGNS: Reviewed / noted above. GENERAL: Non-toxic in appearance. INTEGUMENTARY: Warm and pale. Skin is pale. HEAD: Normocephalic. EYES: without scleral icterus or trauma. ENT/OROPHARYNX: clear and moist. LYMPHADENOPATHY/NECK: Is supple without lymphadenopathy or meningismus. RESPIRATORY: Lungs clear and equal. CARDIOVASCULAR: Regular rate and rhythm. GI/ABDOMEN: Soft and nontender. No organomegaly or pulsatile mass. No rebound or guarding. Normal bowel sounds. EXTREMITIES: Warm and well perfused. BACK: No CVA tenderness. NEUROLOGICAL: Intact without focal deficits. PSYCHIATRIC: normal affect. MUSCULOSKELETAL: Normally developed with good muscle tone. Course 1050: The patient was evaluated in room B3B and a complete history and physical were performed. 1059: Nursing informed me the patients H&H is 6.5. 1105: I discussed the patients case with Dr. Ventura, [facility]. The patient will be further evaluated. 1110: I reevaluated the patient. He is resting comfortably. I discussed my recommendation he remain in the hospital for further evaluation and management and he verbalized complete understanding and agreement. He was also consented f or blood. Consultations Consultation #1: I discussed the patients case with Dr. Ventura, [facility]. The patient will be further evaluated. Time: 11:05 Administered Medications Discontinued Medications Famotidine (Pepcid 20mg Iv Push) 20 mg IV ONE STA Stop: 02/13/19 11:01 Last Admin: 02/13/19 11:06 Dose: 20 mg Documented by: [id number] Sodium Chloride (Nss) 500 mls @ 999 mls/hr IV .Q31M STEFAN Stop: 02/13/19 11:30 Last Infusion: 02/13/19 11:42 Dose: 0 mls/hr Documented by: [id number] Admin: 02/13/19 11:06 Dose: 999 mls/hr Documented by: [id number] Medical Decision Making Differential Diagnosis Differential Diagnosis includes but is not limited to dehydration, stroke, anemia, hypoglycemia, hyponatremia, hypernatremia, urinary tract infection, pneumonia, bronchitis, sepsis, gastroenteritis, additional abdominal pathology, metabolic abnormalities and infections. Medical Records Attestation: I reviewed the patient's medical records. Home Medications Current Medication List: was personally reviewed by me Laboratory Data Attestation: I reviewed the patient's lab results. Result diagrams: 02/13/19 10:53 02/13/19 10:53 Lab Results 02/13/19 02/13/19 02/13/19 Range/Units 10:53 10:53 10:53 WBC 14.46 H (4.8-10.8) K/uL RBC 1.93 L (4.7-6.1) M/uL Hgb 6.1 L* (14.0-18.0) g/dL POC Hgb (14.0-18.0) g/dl Hct 18.8 L* (42-52) % POC Hct (42-52) % MCV 97.4 (80-100) fL MCH 31.6 (25-34) pg MCHC 32.4 (32-36) g/dL RDW Std Deviation 46.6 H (36.4-46.3) fL RDW Coeff of Brandon 13.1 (11.5-14.5) % Plt Count 541 H (130-400) K/uL MPV 10.2 (7.4-10.4) fL Immature Gran % (Auto) 1.2 % Neut % (Auto) 75.3 % Lymph % (Auto) 15.3 % [place] % (Auto) 7.9 % Eos % (Auto) 0.1 % Baso % (Auto) 0.2 % Immature Gran # (Auto) 0.18 H (0.00-0.02) K/uL Neut # (Auto) 10.88 H (1.4-6.5) K/uL Lymph # (Auto) 2.21 (1.2-3.4) K/uL [place] # (Auto) 1.14 H (0.11-0.59) K/uL Eos # (Auto) 0.02 (0-0.5) K/uL Baso # (Auto) 0.03 (0-0.2) K/uL RBC Morphology Unremarkable PT 12.1 H (9.0-12.0) Seconds INR 1.2 H (0.9-1.1) APTT 22.5 (21.0-31.0) Seconds PTT Ratio 0.8 POC Sodium (135-144) mEq/L Sodium 141 (136-145) mmol/L POC Potassium (3.3-5.0) mEq/L Potassium 4.3 (3.5-5.1) mmol/L POC Chloride (101-112) mEq/L Chloride 108 H (98-107) mmol/L Carbon Dioxide 21 (21-32) mmol/L POC Total CO2 (24-31) mEq/l Anion Gap 12.0 H (3-11) POC Anion Gap (16-25) mmol/L POC BUN (7-18) mg/dl BUN 64 H (7-18) mg/dl Creatinine 1.85 H (0.6-1.4) mg/dl POC Creatinine (0.6-1.3) mg/dl Est Cr Clr Drug Dosing 33.6 ml/min Est GFR ( Amer) 39.0 Est GFR (Non-Af Amer) 33.6 BUN/Creatinine Ratio 34.5 H (10-20) Glucose 135 H (70-99) mg/dl POC Glucose (other) (70-99) mg/dl Calcium 8.2 L (8.5-10.1) mg/dl POC Ioniz Calcium Elaine (1.12-1.32) mmol/l Total Bilirubin 0.4 (0.2-1) mg/dl AST 14 L (15-37) U/L ALT 16 (12-78) U/L Alkaline Phosphatase 34 L (45-117) U/L Troponin I 0.025 (0-0.045) ng/ml Total Protein 6.3 L (6.4-8.2) gm/dl Albumin 2.8 L (3.4-5.0) gm/dl Globulin 3.5 (2.5-4.0) gm/dl Albumin/Globulin Ratio 0.8 L (0.9-2) POC Stool Occult Blood (Negative) Crossmatch 02/13/19 02/13/19 02/13/19 Range/Units 10:53 10:58 10:58 WBC (4.8-10.8) K/uL RBC (4.7-6.1) M/uL Hgb (14.0-18.0) g/dL POC Hgb 6.5 L* (14.0-18.0) g/dl Hct (42-52) % POC Hct 19 L* (42-52) % MCV (80-100) fL MCH (25-34) pg MCHC (32-36) g/dL RDW Std Deviation (36.4-46.3) fL RDW Coeff of Brandon (11.5-14.5) % Plt Count (130-400) K/uL MPV (7.4-10.4) fL Immature Gran % (Auto) % Neut % (Auto) % Lymph % (Auto) % [place] % (Auto) % Eos % (Auto) % Baso % (Auto) % Immature Gran # (Auto) (0.00-0.02) K/uL Neut # (Auto) (1.4-6.5) K/uL Lymph # (Auto) (1.2-3.4) K/uL [place] # (Auto) (0.11-0.59) K/uL Eos # (Auto) (0-0.5) K/uL Baso # (Auto) (0-0.2) K/uL RBC Morphology PT (9.0-12.0) Seconds INR (0.9-1.1) APTT (21.0-31.0) Seconds PTT Ratio POC Sodium 140 (135-144) mEq/L Sodium (136-145) mmol/L POC Potassium 4.4 (3.3-5.0) mEq/L Potassium (3.5-5.1) mmol/L POC Chloride 104 (101-112) mEq/L Chloride (98-107) mmol/L Carbon Dioxide (21-32) mmol/L POC Total CO2 18 L (24-31) mEq/l Anion Gap (3-11) POC Anion Gap 23.0 (16-25) mmol/L POC BUN 64 H (7-18) mg/dl BUN (7-18) mg/dl Creatinine (0.6-1.4) mg/dl POC Creatinine 1.8 H (0.6-1.3) mg/dl Est Cr Clr Drug Dosing ml/min Est GFR ( Amer) Est GFR (Non-Af Amer) BUN/Creatinine Ratio (10-20) Glucose (70-99) mg/dl POC Glucose (other) 138 H (70-99) mg/dl Calcium (8.5-10.1) mg/dl POC Ioniz Calcium Elaine 1.20 (1.12-1.32) mmol/l Total Bilirubin (0.2-1) mg/dl AST (15-37) U/L ALT (12-78) U/L Alkaline Phosphatase (45-117) U/L Troponin I (0-0.045) ng/ml Total Protein (6.4-8.2) gm/dl Albumin (3.4-5.0) gm/dl Globulin (2.5-4.0) gm/dl Albumin/Globulin Ratio (0.9-2) POC Stool Occult Blood Positive A (Negative) Crossmatch See Detail Imaging Data Radiologist's Impression: Radiology results as stated below per my review and the radiologist's interpretation: XR chest 1V portable CLINICAL HISTORY: 79 years-old Male presenting with weakness. TECHNIQUE: Portable upright AP view of the chest was obtained. COMPARISON: 01/21/[address] from 12/14/2017. FINDINGS: Atherosclerosis of the aortic arch. Cardiac silhouette normal in size. Reticular opacities in the right upper lung and left lung base and to lesser lesser extent the left upper lung. No new focal opacity. No large effusion or pneumothorax. Degenerative changes of the thoracic spine. Upper abdomen normal. IMPRESSION: 1. Chronic reticular infiltrates bilaterally. No superimposed infiltrate to suggest pneumonia. Electronically signed by: Devon Johnson M.D. 02/13/2019 11:19 AM ECG Data Attestation: I personally reviewed and interpreted this ECG as follows: Indication: SOB/dyspnea Rate (beats per minute): 95 Findings: no ST elevation and no ectopy Blood Pressure Blood Pressure Findings: Low blood pressure MDM Narrative This is a 79-year-old male who presents to the ED with a chief complaint of shortness of breath, weakness and some diarrhea. The patient reports diarrhea over the past couple of days. He states that he felt lightheaded today. The patient's stool was dark to slightly maroon and guaiac positive, per the nurse. The patient's initial blood pressure when EMS arrived was 70 systolic. He did get some IV fluids in route. He was also tight with regards to his lung and EMS provided a DuoNeb treatment. The patient states that his breathing seems to be improved. His initial oxygen saturations was documented 87% on 4 L nasal cannula. The patient uses 4 to 5 L at home. On 5 L he is saturating in the mid 90s. The patient has no other complaints. Denies any chest pains or fevers or recent illness. His exam reveals paleness of the skin. The patient otherwise has an unremarkable exam. The patient's hemoglobin is 6.1. The BUN is 64. Creatinine 1.8. Chest x-ray was negative for acute disease. The patient was treated with normal saline IV. Blood transfusion has been ordered for 1 unit. The patient was given IV Pepcid as Protonix is not available and on backorder. The patient will be seen by the hospitalist service for further inpatient evaluation and care. Impression & Plan GI bleed, Anemia Critical Care Time Critical Care Time: Yes Total Critical Care Time: 35 I have personally spent 35 minutes of critical care time in the direct management of this patient. This includes bedside care, interpretation of diagn ostic studies, and testing, discussion with consultants, patient, and family members, and other required patient management activities. This 35 minutes is in excess of all separately billable procedures. Discharge Plan Visit Data Chief Complaint: Shortness of Breath/Dyspnea ED Provider: Munir Gamino Discharge Problem: GI bleed, Anemia Patient Disposition: Being Evaluated by Hospitalist Forms Stand Alone Forms: My [facility] Prescriptions Prescriptions: No Action fenofibrate nanocrystallized 145 mg tablet 145 mg PO DAILY Qty: 90 RF: 1 clopidogrel 75 mg tablet 75 mg PO DAILY Qty: 90 RF: 1 fluticasone propion-salmeterol [Advair Diskus] 250-50 mcg/dose blister with device 1 puffs INH BID Qty: 14 RF: 3 spironolactone 100 mg tablet 100 mg PO DAILY RF: 0 atenolol 25 mg tablet 25 mg PO .COMPLEX RF: 0 Oxygen Home Liters Per Minute .ROUTE .MEDSUPPLY Qty: 1 RF: 0 aspirin 325 mg tablet 325 mg PO QAM Qty: 30 RF: 0 clopidogrel 75 mg tablet 75 mg PO DAILY Qty: 90 RF: 0 potassium chloride 20 mEq tablet extended release 20 meq PO QAM RF: 0 furosemide 80 mg tablet 40 mg PO QAM RF: 0 rosuvastatin 20 mg tablet 20 mg PO QAM RF: 0 Combivent Respimat 20-100 mcg/actuation Mist 1 puff INHALATION QID RF: 0 Referrals Referrals: Yisel Pittman MD [Primary Care Provider] - The scribe's documentation has been prepared under my direction and personally reviewed by me in its entirety. I confirm that the note above accurately reflects all work, treatment, procedures, and medical decision making performed by me.
[2019-02-13] MEDS ORDERED: FAMOTIDINE 20MG/5ML IV PUSH IV STA (11:00)
[2019-02-13] MEDS ORDERED: SODIUM CHLORIDE 0.9% 500 ML IV SCH (11:00)
[2019-02-13] MEDS ORDERED: SODIUM CHLORIDE 0.9% 250 ML IV PRN ×2 (11:02→13:21)
[2019-02-13 11:12] LABS: Hematocrit (blood only) 18.8 % (42-52); Hemoglobin 6.1 g/dL (14.0-18.0); Mean Corpuscular Hemoglobin 31.6 pg (25-34); Mean Corpuscular Hgb Conc 32.4 g/dL (32-36); Mean Corpuscular Volume 97.4 fL (80-100); Mean Platelet Volume 10.2 fL (7.4-10.4); Platelet Count 541 K/uL (130-400); RDW Coefficient of Variation 13.1 % (11.5-14.5); RDW Standard Deviation 46.6 fL (36.4-46.3); Red Blood Count 1.93 M/uL (4.7-6.1); White Blood Count 14.46 K/uL (4.8-10.8)
--- NOTE | 2019-02-13 11:16 | History & Physical Report ---
Date of Service February 13, 2019 Assessment & Plan (1) GI bleed: 79-year-old male with known to be anemic with heme positive stools. Hemoglobin was 6.1. Blood pressure in the 90s over 50s with a heart rate in the high 90s low 100s. Patient was given a 500 cc bolus in the emergency department and was typed and screened. Patient will be admitted to the PCU on telemetry. We will transfuse 3 units of PRBCs. Patient was placed on Protonix drip. GI was consulted and the case was discussed with Dr. Mark. Present on Admission?: Yes (2) Acute blood loss anemia: Secondary to acute GI bleed. Patient be transfused 3 units PRBCs. We will monitor serial H&H's. Present on Admission?: Yes (3) Chronic kidney disease, stage 3: Acute exacerbation of CKD stage III. Likely due to acute GI bleed. We will continue to hydrate. We will hold nephrotoxic meds. (4) HTN (hypertension): Will hold atenolol, furosemide and spironolactone as patient is hypotensive secondary to acute GI bleed. (5) Chronic respiratory failure with hypoxia, on home O2 therapy: Patient is on 4 L O2 via nasal cannula at home. He is currently maintaining his sats on this we will continue to monitor. History of Present Illness Chief Complaint: Lightheaded and dizzy Primary Care Provider: Yisel Pittman MD 79-year-old male with a history of chronic hypoxic respiratory failure on O2, hypertension, TIA and CKD stage III who presented to the emergency department this morning with increased lightheadedness and dizziness. Patient states that the last week he has had lower right-sided abdominal pain. He started a course of Prilosec completed yesterday. Patient states he began with diarrhea 2 days ago. This morning he was having a hard time to stand up without his vision getting blurry and felt very weak and dizzy. Patient states he he did note that the toilet was darker than normal. Denies any bright red blood. Patient blood pressure in the emergency department is 90s over 50s heart rate is high 90s to low 100s. Patient was given 500 cc bolus of normal saline, IV famotidine plus and was typed and screened. Allergies Allergy/AdvReac Type Severity Reaction Status Date / Time No Known Allergies Allergy Verified 02/13/19 11:35 Home Medications Home Medications Medication Instructions Recorded Confirmed Type Combivent Respimat 1 puff INHALATION QID 01/15/19 02/13/19 History furosemide 40 mg PO QAM 01/15/19 02/13/19 History rosuvastatin 20 mg PO QAM 01/15/19 02/13/19 History potassium chloride 20 meq PO QAM 01/21/19 02/13/19 History clopidogrel 75 mg tablet 75 mg PO DAILY #90 tab 01/28/19 02/13/19 Rx fenofibrate nanocrystallized 145 145 mg PO DAILY #90 tab 01/28/19 02/13/19 Rx mg tablet fluticasone 250 mcg-salmeterol 50 1 puffs INH BID #14 ea 01/30/19 02/13/19 Rx mcg/dose blistr powdr for inhalation aspirin 325 mg tablet 325 mg PO QAM #30 tab 02/05/19 02/13/19 History omeprazole magnesium [Prilosec OTC] 20 mg PO QAM 02/13/19 02/13/19 History Past Med/Surg History Medical History Chronic respiratory failure (Chronic) COPD (chronic obstructive pulmonary disease) (Chronic) Sinus bradycardia (Acute) XOCHITL (acute kidney injury) (Acute) Orthostasis (Acute) Dehydration (Acute) Acute respiratory failure with hypoxia HTN (hypertension) CVA (cerebral vascular accident) Carotid bruit present Chronic kidney disease, stage 3 Chronic venous insufficiency Dysphagia Surgical History History of umbilical hernia repair Family History Other Family history non-contributory Social History Preferred Language: French Communication Ability: Effective Medical Accounting Clerk Required: No Beliefs That Will Affect Care: None Current Living Situation: Alone Current Living Situation Comment: friends live close by and check on pt frequently Other Information That Helps Us Care for You: No Feels Safe at Home: Yes Safety Concerns: Feels Safe At This Time Smoking Status: Never smoker Tobacco Type: cigarettes ; Do You Dip or Chew Tobacco: No ; Second Hand Exposure: No ; Tobacco Cessation Education Requested by Patient: No Hx Alcohol Use: Yes Alcohol type: wine Hx Substance Use: No Review of Systems Constitutional: + fatigue Eyes: + diplopia Ear, Nose, Mouth, Throat: no ear pain and no ear trauma Respiratory: + dyspnea on exertion Cardiovascular: no chest pain Gastrointestinal: + abdominal pain, + heartburn, + change in stools and + diarrhea/loose stools Genitourinary: + dysuria; no urinary frequency Neurologic: + unsteadiness, + generalized weakness and + dizziness Psychiatric: no behavioral changes and no hopelessness Endocrine: no polydipsia, no polyphagia and no polyuria Physical Exam Constitutional: well developed and + ill appearing Eyes: PERRL, conjunctivae normal, anicteric sclerae ENMT: external ear and nose normal, oropharynx normal Neck: trachea midline, no thyromegaly Respiratory: normal respiratory effort Cardiovascular: Rate/Rhythm: regular rhythm and + tachycardic Gastrointestinal (Abdomen): Inspection/Auscultation: normal bowel sounds Percussion/Palpation: + abdomen tender (RLQ) and abdomen soft Musculoskeletal: no cyanosis or clubbing, extremities motor strength 5/5 Skin: + turgor decreased Neurologic: patellar DTR's 2+ bilat, sensation intact Psychiatric: A+Ox3, euthymic affect Results & Data Vital Signs (Past 12 Hours) Vital Signs Temp Pulse Resp BP Pulse Ox 02/13/19 11:07 100 02/13/19 11:00 98 H 21 105/51 L 98 02/13/19 10:58 98 02/13/19 10:46 36.2 C L 02/13/19 10:30 92 H 27 H 108/43 L 91 02/13/19 10:28 97 H 21 107/58 L 91 Laboratory Results 02/13/19 02/13/19 02/13/19 Range/Units 12:10 10:58 10:58 WBC (4.8-10.8) K/uL RBC (4.7-6.1) M/uL Hgb (14.0-18.0) g/dL POC Hgb 6.5 L* (14.0-18.0) g/dl Hct (42-52) % POC Hct 19 L* (42-52) % MCV (80-100) fL MCH (25-34) pg MCHC (32-36) g/dL RDW Std Deviation (36.4-46.3) fL RDW Coeff of Brandon (11.5-14.5) % Plt Count (130-400) K/uL MPV (7.4-10.4) fL Immature Gran % (Auto) % Neut % (Auto) % Lymph % (Auto) % [place] % (Auto) % Eos % (Auto) % Baso % (Auto) % Immature Gran # (Auto) (0.00-0.02) K/uL Neut # (Auto) (1.4-6.5) K/uL Lymph # (Auto) (1.2-3.4) K/uL [place] # (Auto) (0.11-0.59) K/uL Eos # (Auto) (0-0.5) K/uL Baso # (Auto) (0-0.2) K/uL RBC Morphology PT (9.0-12.0) Seconds INR (0.9-1.1) APTT (21.0-31.0) Seconds PTT Ratio POC Sodium 140 (135-144) mEq/L Sodium (136-145) mmol/L POC Potassium 4.4 (3.3-5.0) mEq/L Potassium (3.5-5.1) mmol/L POC Chloride 104 (101-112) mEq/L Chloride (98-107) mmol/L Carbon Dioxide (21-32) mmol/L POC Total CO2 18 L (24-31) mEq/l Anion Gap (3-11) POC Anion Gap 23.0 (16-25) mmol/L POC BUN 64 H (7-18) mg/dl BUN (7-18) mg/dl Creatinine (0.6-1.4) mg/dl POC Creatinine 1.8 H (0.6-1.3) mg/dl Est Cr Clr Drug Dosing ml/min Est GFR ( Amer) Est GFR (Non-Af Amer) BUN/Creatinine Ratio (10-20) Glucose (70-99) mg/dl POC Glucose (other) 138 H (70-99) mg/dl Calcium (8.5-10.1) mg/dl POC Ioniz Calcium Elaine 1.20 (1.12-1.32) mmol/l Total Bilirubin (0.2-1) mg/dl AST (15-37) U/L ALT (12-78) U/L Alkaline Phosphatase (45-117) U/L Troponin I (0-0.045) ng/ml Total Protein (6.4-8.2) gm/dl Albumin (3.4-5.0) gm/dl Globulin (2.5-4.0) gm/dl Albumin/Globulin Ratio (0.9-2) POC Stool Occult Blood Positive A (Negative) Blood Type Blood Type Recheck Pending Antibody Screen Crossmatch 02/13/19 02/13/19 02/13/19 Range/Units 10:53 10:53 10:53 WBC (4.8-10.8) K/uL RBC (4.7-6.1) M/uL Hgb (14.0-18.0) g/dL POC Hgb (14.0-18.0) g/dl Hct (42-52) % POC Hct (42-52) % MCV (80-100) fL MCH (25-34) pg MCHC (32-36) g/dL RDW Std Deviation (36.4-46.3) fL RDW Coeff of Brandon (11.5-14.5) % Plt Count (130-400) K/uL MPV (7.4-10.4) fL Immature Gran % (Auto) % Neut % (Auto) % Lymph % (Auto) % [place] % (Auto) % Eos % (Auto) % Baso % (Auto) % Immature Gran # (Auto) (0.00-0.02) K/uL Neut # (Auto) (1.4-6.5) K/uL Lymph # (Auto) (1.2-3.4) K/uL [place] # (Auto) (0.11-0.59) K/uL Eos # (Auto) (0-0.5) K/uL Baso # (Auto) (0-0.2) K/uL RBC Morphology PT 12.1 H (9.0-12.0) Seconds INR 1.2 H (0.9-1.1) APTT 22.5 (21.0-31.0) Seconds PTT Ratio 0.8 POC Sodium (135-144) mEq/L Sodium 141 (136-145) mmol/L POC Potassium (3.3-5.0) mEq/L Potassium 4.3 (3.5-5.1) mmol/L POC Chloride (101-112) mEq/L Chloride 108 H (98-107) mmol/L Carbon Dioxide 21 (21-32) mmol/L POC Total CO2 (24-31) mEq/l Anion Gap 12.0 H (3-11) POC Anion Gap (16-25) mmol/L POC BUN (7-18) mg/dl BUN 64 H (7-18) mg/dl Creatinine 1.85 H (0.6-1.4) mg/dl POC Creatinine (0.6-1.3) mg/dl Est Cr Clr Drug Dosing 33.6 ml/min Est GFR ( Amer) 39.0 Est GFR (Non-Af Amer) 33.6 BUN/Creatinine Ratio 34.5 H (10-20) Glucose 135 H (70-99) mg/dl POC Glucose (other) (70-99) mg/dl Calcium 8.2 L (8.5-10.1) mg/dl POC Ioniz Calcium Elaine (1.12-1.32) mmol/l Total Bilirubin 0.4 (0.2-1) mg/dl AST 14 L (15-37) U/L ALT 16 (12-78) U/L Alkaline Phosphatase 34 L (45-117) U/L Troponin I 0.025 (0-0.045) ng/ml Total Protein 6.3 L (6.4-8.2) gm/dl Albumin 2.8 L (3.4-5.0) gm/dl Globulin 3.5 (2.5-4.0) gm/dl Albumin/Globulin Ratio 0.8 L (0.9-2) POC Stool Occult Blood (Negative) Blood Type A Positive Blood Type Recheck Antibody Screen NEGATIVE Crossmatch See Detail 02/13/19 Range/Units 10:53 WBC 14.46 H (4.8-10.8) K/uL RBC 1.93 L (4.7-6.1) M/uL Hgb 6.1 L* (14.0-18.0) g/dL POC Hgb (14.0-18.0) g/dl Hct 18.8 L* (42-52) % POC Hct (42-52) % MCV 97.4 (80-100) fL MCH 31.6 (25-34) pg MCHC 32.4 (32-36) g/dL RDW Std Deviation 46.6 H (36.4-46.3) fL RDW Coeff of Brandon 13.1 (11.5-14.5) % Plt Count 541 H (130-400) K/uL MPV 10.2 (7.4-10.4) fL Immature Gran % (Auto) 1.2 % Neut % (Auto) 75.3 % Lymph % (Auto) 15.3 % [place] % (Auto) 7.9 % Eos % (Auto) 0.1 % Baso % (Auto) 0.2 % Immature Gran # (Auto) 0.18 H (0.00-0.02) K/uL Neut # (Auto) 10.88 H (1.4-6.5) K/uL Lymph # (Auto) 2.21 (1.2-3.4) K/uL [place] # (Auto) 1.14 H (0.11-0.59) K/uL Eos # (Auto) 0.02 (0-0.5) K/uL Baso # (Auto) 0.03 (0-0.2) K/uL RBC Morphology Unremarkable PT (9.0-12.0) Seconds INR (0.9-1.1) APTT (21.0-31.0) Seconds PTT Ratio POC Sodium (135-144) mEq/L Sodium (136-145) mmol/L POC Potassium (3.3-5.0) mEq/L Potassium (3.5-5.1) mmol/L POC Chloride (101-112) mEq/L Chloride (98-107) mmol/L Carbon Dioxide (21-32) mmol/L POC Total CO2 (24-31) mEq/l Anion Gap (3-11) POC Anion Gap (16-25) mmol/L POC BUN (7-18) mg/dl BUN (7-18) mg/dl Creatinine (0.6-1.4) mg/dl POC Creatinine (0.6-1.3) mg/dl Est Cr Clr Drug Dosing ml/min Est GFR ( Amer) Est GFR (Non-Af Amer) BUN/Creatinine Ratio (10-20) Glucose (70-99) mg/dl POC Glucose (other) (70-99) mg/dl Calcium (8.5-10.1) mg/dl POC Ioniz Calcium Elaine (1.12-1.32) mmol/l Total Bilirubin (0.2-1) mg/dl AST (15-37) U/L ALT (12-78) U/L Alkaline Phosphatase (45-117) U/L Troponin I (0-0.045) ng/ml Total Protein (6.4-8.2) gm/dl Albumin (3.4-5.0) gm/dl Globulin (2.5-4.0) gm/dl Albumin/Globulin Ratio (0.9-2) POC Stool Occult Blood (Negative) Blood Type Blood Type Recheck Antibody Screen Crossmatch Code Status & VTE Plan Code Status Full code VTE Prophylaxis Plan VTE Prophylaxis will be ordered: Yes Reason for no VTE drug order: Contraindicated Supervising Physician Co-Signing Physician Notes Attending Attestation and Admission Note: Pt seen/examined, chart reviewed, care plan d/w Dr Konstantin Beard. I agree w/ the rodriguez components of his admission documentation. 79yo male with chronic hypoxic resp failure on home O2 and chronic use of asa/plavix who presents with several days of mild abdominal discomfort and dark stools. Today felt weak and dizzy; therefore he came to ER. Upon presentation was noted to be tachy and mildly hypotensive. CBC revealed severe anemia with Hb of about 6. Was in hospital in December -- Hb at that time was in the 10 range. PMH, PSH, allergies, meds, sochx, famhx, ros - reviewed vitals - tachy, mildly hypotensive (SBP 90s), o2 sats wnl gen - very pale, NAD, alert neck - no JVD heart - tachy, s1 s2 lungs - CTA b/l abd - mild tenderness periumbilical region; BS+; ND; stool heme+ per ER staff ext - no edema Hb about 6 other labs, imaging reviewed A/P: 1. acute blood loss anemia 2. probable upper GI bleeding; suspect he may be actively bleeding given the tachycardia and borderline hypotension; PUD? severe gastritis? other? 3. chronic asa/plavix use presumably due to prior CVA 4. chronic hypoxic resp failure on home O2 due to COPD - stable 5. CKD stage 3 -Tx 3 units PRBCs -serial H/H's -BMP am -urgent GI consultation - does he need emergent EGD given his vitals and severity of anemia? -PPI drip; NPO status -while awaiting PRBCs will give additional fluid bolus of 500cc -hold asa/plavix -telemetry -continue NC O2 Elliott Dinh MD PG Care Time/CCT Total # of Minutes Spent Total Time Spent with Patient: Total time spent is greater than 50% in coordination of care (as documented) at patient's floor/unit and/or counseling patient: 55 (1) GI bleed GI bleed type/associated pathology: unspecified gastrointestinal hemorrhage type Qualified Code(s): K92.2 - Gastrointestinal hemorrhage, unspecified (2) HTN (hypertension) Hypertension type: unspecified Qualified Code(s): I10 - Essential (primary) hypertension
--- NOTE | 2019-02-13 11:21 | XRay Report ---
XR chest 1V portable CLINICAL HISTORY: 79 years-old Male presenting with weakness. TECHNIQUE: Portable upright AP view of the chest was obtained. COMPARISON: 01/21/[address] from 12/14/2017. FINDINGS: Atherosclerosis of the aortic arch. Cardiac silhouette normal in size. Reticular opacities in the rig ht upper lung and left lung base and to lesser lesser extent the left upper lung. No new focal opacit y. No large effusion or pneumothorax. Degenerative changes of the thoracic spine. Upper abdomen phil l. IMPRESSION: 1. Chronic reticular infiltrates bilaterally. No superimposed infiltrate to suggest pneumonia. Electronically signed by: Devon Johnson M.D. 02/13/2019 11:19 AM
[2019-02-13 11:26] LABS: Albumin Level 2.8 gm/dl (3.4-5.0); BUN Creatinine Ratio 34.5 (10-20); Calcium 8.2 mg/dl (8.5-10.1); Creatinine Clr Calc Pharmacy 33.6 ml/min; Est GFR (Non-African American) 33.6; Potassium 4.3 mmol/L (3.5-5.1)
[2019-02-13 11:28] LABS: Basophils # (auto) 0.03 K/uL (0-0.2); Basophils % (auto) 0.2 %; Eosinophils # (auto) 0.02 K/uL (0-0.5); Eosinophils % (auto) 0.1 %; INR 1.2 (0.9-1.1); Immature Granulocytes # (auto) 0.18 K/uL (0.00-0.02); Immature Granulocytes % (auto) 1.2 %; Lymphocytes # (auto) 2.21 K/uL (1.2-3.4); Lymphocytes % (auto) 15.3 %; Monocytes # (auto) 1.14 K/uL (0.11-0.59); Monocytes % (auto) 7.9 %; Neutrophils # (auto) 10.88 K/uL (1.4-6.5); Neutrophils % (auto) 75.3 %; Partial Thromboplastin Ratio 0.8; Partial Thromboplastin Time 22.5 Seconds (21.0-31.0); Prothrombin Time 12.1 Seconds (9.0-12.0); RBC Morphology Unremarkable
[2019-02-13 11:31] LABS: Albumin Globulin Ratio 0.8 (0.9-2); Bilirubin,Total 0.4 mg/dl (0.2-1); Globulin 3.5 gm/dl (2.5-4.0); Total Protein 6.3 gm/dl (6.4-8.2); Troponin I 0.025 ng/ml (0-0.045)
[2019-02-13 11:39] LABS: iSTAT Creatinine 1.8 mg/dl (0.6-1.3); iSTAT Hemoglobin 6.5 g/dl (14.0-18.0); iSTAT Ionized Calcium 1.2 mmol/l (1.12-1.32); iSTAT Potassium 4.4 mEq/L (3.3-5.0)
[2019-02-13] MEDS ORDERED: SODIUM CHLORIDE 0.9% 500 ML IV ONE (12:17)
[2019-02-13] MEDS ORDERED: PANTOprazole 80 MG in DEXTROSE 5% 100 ML IV SCH (12:30)
--- NOTE | 2019-02-13 12:44 | Gastrointestinal Consultation ---
Date of Consultation February 13, 2019 Assessment & Plan (1) Acute blood loss anemia: Mr. Sathish Rangel who has COPD, continual O2 at home reports nausea and melena (though rectal with brown stool with a small amt of bright red blood) on Plavix, ASA. He has had a significant drop in Hb (10-> 6.1 in the past 3 weeks). This most likely represents an UGI bleed vs. lower GI bleed. However, with his hx of significant COPD, advanced age, would favor transfusions, fluids, PPI (IV daily because currently no active bleeding), supportive care today and watch very closely for gross GI bleeding. If gross bleeding and further drop in Hb/Hct this weekend then Dr. Mark who is covering may decide to go forward with EGD. Please hold ASA, Plavix until stable. Will follow along. Present on Admission?: Yes (2) GI bleed: Present on Admission?: Yes Supervising Physician Co-Signing Physician Notes I have seen and examined the patient and discussed the management with LAUREANO Patino. 79 yo mal with prior history of htn, cva on aspirin/plavix, ckdz, admitted with anemia. Per patient he thought he may be having lgi bleeding but here his rectal exam on the floor is brown without blood. He reports no episodes of hematemesis or abominal pain. PE- alert and oriented to person/place/time, CV - rrr no mrg, pulm- normal excusion of chest, abd - soft nt nd +bs, rectal exam as per Tushar's exam Hgb of 6.5, chronic BUN elevation with fluctuations Aspirin 325 mg po daily and Plavix 75 mg po daily - took this am. Would transfuse with PRBC's, continue PPI, monitor hgb. Would opt for conservative mgmt for now and reassess how he does. If signs of overt GI bleeding, will reconsider need for egd. Patient liked this plan and was reluctant to pursue a scope unless he really needs it - last EGD in [address] Cruz with gastritis. History of Present Illness Reason for Consultation: GI bleed Requesting Physician: Dr. Konstantin Beard, Attending Physician: Berenice History of Present Illness Mr. Sathish Rangel is an 79 yr old male pt of Dr. Pittman with a hx of COPD, HTN, CVA, CKD-3 and dysphagia. He presented to the ED today for SOB. He is maintained on ASA 325 and Plavix. On arrival, Hb 6.1, (down from 10.3 on 01/23/19). BUN is 64, Cr 1.8. MCV is normal. INR is 1.2. Current feeling a bit SOB O2 by NC at 4L/min (also on 4-5 L O2 24hrs/day at home), pulse ox is 100%. He is awake, alert, oriented. He reports nausea but no vomiting. He believes that black BMs started yesterday and that he has passed about 2 loose black BMs today, both prior to arrival. In the ED stool was brown with some bright red blood. He previously underwent EGD by Dr. Cruz in November [address] Cruz with mild Schatzki ring, gastritis, duodenitis. Path with chronic gastritis, H Pylori (-), chronic, non specific duodenitis. No prior colonoscopy. Allergies Allergy/AdvReac Type Severity Reaction Status Date / Time No Known Allergies Allergy Verified 02/13/19 11:35 Home Medications Home Medications Medication Instructions Recorded Confirmed Type Combivent Respimat 1 puff INHALATION QID 01/15/19 02/13/19 History furosemide 40 mg PO QAM 01/15/19 02/13/19 History rosuvastatin 20 mg PO QAM 01/15/19 02/13/19 History potassium chloride 20 meq PO QAM 01/21/19 02/13/19 History clopidogrel 75 mg tablet 75 mg PO DAILY #90 tab 01/28/19 02/13/19 Rx fenofibrate nanocrystallized 145 145 mg PO DAILY #90 tab 01/28/19 02/13/19 Rx mg tablet fluticasone 250 mcg-salmeterol 50 1 puffs INH BID #14 ea 01/30/19 02/13/19 Rx mcg/dose blistr powdr for inhalation aspirin 325 mg tablet 325 mg PO QAM #30 tab 02/05/19 02/13/19 History omeprazole magnesium [Prilosec OTC] 20 mg PO QAM 02/13/19 02/13/19 History Patient History Medical History Chronic respiratory failure (Chronic) COPD (chronic obstructive pulmonary disease) (Chronic) Sinus bradycardia (Acute) XOCHITL (acute kidney injury) (Acute) Orthostasis (Acute) Dehydration (Acute) Acute respiratory failure with hypoxia HTN (hypertension) CVA (cerebral vascular accident) Carotid bruit present Chronic kidney disease, stage 3 Chronic venous insufficiency Dysphagia Surgical History History of umbilical hernia repair Family History Other Family history non-contributory Social History Preferred Language: Kiswahili Communication Ability: Effective Patient Relations Representative Required: No Beliefs That Will Affect Care: None Current Living Situation: Alone Current Living Situation Comment: friends live close by and check on pt frequently Feels Safe at Home: Yes Smoking Status: Former smoker Tobacco Type: cigarettes ; Second Hand Exposure: No ; Hx Alcohol Use: Yes Alcohol type: wine Hx Substance Use: No Review of Systems Review of Systems: ROS: Gen: + weakness; No fevers, weight loss Eyes: No eye redness, or pain, no recent vision changes Resp: + SOB, no cough, no wheezing Cardio: No palpitations/irregular beats, no chest pain GI: + mild nausea, no vomiting, no abdominal pain : Denies pain on urination Skin: No jaundice, itching or new rashes Physical Exam Constitutional: WD/WN, vitals as above + thin pale Eyes: PERRL, conjunctivae normal, anicteric sclerae ENMT: external ear and nose normal, oropharynx normal Neck: trachea midline, no thyromegaly Respiratory: decreased sound in the bases but no adventitious sounds Cardiovascular: RRR, no murmur, no edema Gastrointestinal (Abdomen): normal bowel sounds, soft, nontender, no hepatosplenomegaly Musculoskeletal: no cyanosis or clubbing, extremities motor strength 5/5 Skin: no rashes, warm and dry pale Neurologic: PERRL, EOMI, accommodation nl, no face palsy, no dysarthria Psychiatric: A+Ox3, euthymic affect Lymphatic: no cervical or axillary lymphadenopathy Results & Data Vital Signs (Past 12 Hours) Vital Signs Temp Pulse Resp BP Pulse Ox 02/13/19 12:30 20 93 02/13/19 12:19 94 H 35 H 109/48 L 100 02/13/19 12:09 102 H 27 H 90/51 L 98 02/13/19 12:00 98 H 31 H 99/55 L 100 02/13/19 11:30 105 H 20 115/54 L 100 02/13/19 11:07 100 02/13/19 11:00 98 H 21 105/51 L 98 02/13/19 10:58 98 02/13/19 10:46 36.2 C L 02/13/19 10:30 92 H 27 H 108/43 L 91 02/13/19 10:28 97 H 21 107/58 L 91 Laboratory Results See HPI for pertinent labs. Diagnostic Findings CXR: Chronic reticular infiltrates bilaterally. No superimposed infiltrate to suggest pneumonia. Medications Administered pantoprazole bolus given (1) GI bleed GI bleed type/associated pathology: unspecified gastrointestinal hemorrhage type Qualified Code(s): K92.2 - Gastrointestinal hemorrhage, unspecified
[2019-02-13] MEDS: PANTOprazole 40 MG in DEXTROSE 5% 100 ML IV SCH ×3 (14:47→22:16)
[2019-02-13] MEDS: IPRATROPIUM BROMIDE/ALBUTEROL respimat INH INH SCH ×3 (16:18→20:43)
[2019-02-13 17:15] LABS: Hematocrit (blood only) 20.7 % (42-52); Hemoglobin 6.9 g/dL (14.0-18.0)
[2019-02-13] MEDS: FLUTICASONE/SALMETEROL 250/50 (ADVAIR) 14 PUFF/1 INHALER INH SCH (20:43)
[2019-02-13 21:07] LABS: Hematocrit (blood only) 24.3 % (42-52); Hemoglobin 8.2 g/dL (14.0-18.0)
[2019-02-14 03:05] LABS: Hematocrit (blood only) 25.1 % (42-52); Hemoglobin 8.4 g/dL (14.0-18.0); Mean Corpuscular Hemoglobin 31.2 pg (25-34); Mean Corpuscular Hgb Conc 33.5 g/dL (32-36); Mean Corpuscular Volume 93.3 fL (80-100); Mean Platelet Volume 9.9 fL (7.4-10.4); Platelet Count 263 K/uL (130-400); RDW Coefficient of Variation 14.3 % (11.5-14.5); RDW Standard Deviation 48.3 fL (36.4-46.3); Red Blood Count 2.69 M/uL (4.7-6.1); White Blood Count 8.06 K/uL (4.8-10.8)
[2019-02-14 03:17] LABS: BUN Creatinine Ratio 40.4 (10-20); Calcium 7.9 mg/dl (8.5-10.1); Creatinine Clr Calc Pharmacy 36.8 ml/min; Est GFR (African American) 44.4; Est GFR (Non-African American) 38.3; Potassium 3.9 mmol/L (3.5-5.1)
[2019-02-14] MEDS: PANTOprazole 40 MG in DEXTROSE 5% 100 ML IV SCH ×2 (03:23→07:58)
[2019-02-14] MEDS: IPRATROPIUM BROMIDE/ALBUTEROL respimat INH INH SCH ×4 (07:57→22:00)
[2019-02-14] MEDS: FLUTICASONE/SALMETEROL 250/50 (ADVAIR) 14 PUFF/1 INHALER INH SCH ×2 (07:57→22:00)
--- NOTE | 2019-02-14 08:58 | Gastroenterology Progress Note ---
Date of Service February 14, 2019 Assessment & Plan (1) Acute blood loss anemia: No overt GI bleeding overnight Continue Protonix 40 mg twice daily Continue regular diet No overt GI bleeding, and with multiple comorbidities will hold off on any invasive testing at present. (2) GI bleed: (3) Anemia: Subjective Mr. Rangel was sitting up in bed, and had just finished a regular breakfast, at the time I saw him this AM. He was doing well. He denies any BM's overnight, and has not had any abdominal pain, nausea, vomiting or diarrhea. He states he feels much better than when he arrived. Nursing reports no issues overnight, and no overt GI bleeding. Review of Systems Review of Systems: All systems reviewed & are unremarkable except as noted in HPI & below Physical Exam Constitutional: WD/WN, vitals as above Respiratory: normal respiratory effort, lungs clear to auscultation Cardiovascular: RRR, no murmur, no edema Gastrointestinal (Abdomen): Inspection/Auscultation: + abdomen distended and normal bowel sounds Percussion/Palpation: abdomen soft; abdomen nontender Results & Data Vital Signs (Past 12 Hours) Vital Signs Temp Pulse Pulse Resp BP BP BP 02/14/19 06:46 36.9 C 64 18 126/51 L 02/14/19 04:38 36.9 C 66 18 116/52 L 02/14/19 00:43 36.9 C 64 18 140/54 L 02/14/19 00:35 37 C 72 16 133/54 L 02/13/19 23:44 36.4 C L 56 L 18 141/73 H 02/13/19 23:35 37 C 64 16 128/54 L 02/13/19 23:15 69 02/13/19 22:35 37.1 C 65 16 140/51 L 02/13/19 22:05 37.2 C 62 16 138/51 L 02/13/19 21:50 37.0 C 67 16 127/49 L 02/13/19 21:47 37.2 C 69 16 125/43 L 02/13/19 21:27 36.9 C 70 16 135/46 L Pulse Ox 02/14/19 06:46 100 02/14/19 04:38 100 02/14/19 00:43 100 02/14/19 00:35 100 02/13/19 23:44 96 02/13/19 23:35 100 02/13/19 23:15 02/13/19 22:35 100 02/13/19 22:05 100 02/13/19 21:50 100 02/13/19 21:47 100 02/13/19 21:27 100 PG Care Time/CCT Total # of Minutes Spent Total Time Spent with Patient: Total time spent is greater than 50% in coordination of care (as documented) at patient's floor/unit and/or counseling patient: (1) GI bleed GI bleed type/associated pathology: unspecified gastrointestinal hemorrhage type Qualified Code(s): K92.2 - Gastrointestinal hemorrhage, unspecified
[2019-02-14 09:13] LABS: Hematocrit (blood only) 24.3 % (42-52); Hemoglobin 8.1 g/dL (14.0-18.0)
--- NOTE | 2019-02-14 13:18 | Hospitalist Progress Note ---
Date of Service February 14, 2019 Assessment & Plan (1) GI bleed: Likely gastritis as he started taking aspirin 325mg of his own volition because he thought it would "help his heart." - Holding ASA/Plavix for now -> Likely discharge on Plavix only - GI consulted - No plan for EGD at present (2) Acute blood loss anemia: Baseline hemoglobin ~10. Down to 6.1 on admission; s/p 2 units of PRBCs on 02/13. - Hgb now 8.1. Patient feels better, so will hold off on further tx right now. - Monitor hgb; consider 1-2 doses of IV iron depending on blood counts over the next day or so. (3) Chronic kidney disease, stage 3: Baseline Cr ~1.5-1.7. - At baseline. - Avoid nephrotoxins, dehydration, etc. (4) HTN (hypertension): Only on Lasix as potential BP medication. BP presently in acceptable range. - Continue Lasix (5) Chronic respiratory failure with hypoxia, on home O2 therapy: Respiratory status at baseline. - Continue home inhalers. - DuoNebs PRN (6) DVT prophylaxis: SCDs - Low DVT risk per admission calculator & currently with GI bleed Subjective No further dark stools. Feels well overall. Review of Systems Review of Systems: All systems reviewed & are unremarkable except as noted in HPI & below Physical Exam Constitutional: WD/WN, vitals as above Eyes: EOM intact bilaterally; no conjunctival abnormality ENMT: external ear and nose normal, oropharynx normal Neck: trachea midline, no thyromegaly normal visual inspection Respiratory: normal respiratory effort, lungs clear to auscultation no respiratory distress Cardiovascular: RRR, no murmur, no edema Gastrointestinal (Abdomen): Inspection/Auscultation: abdomen normal to inspection; abdomen not distended Musculoskeletal: no cyanosis or clubbing, extremities motor strength 5/5 Skin: no rashes, warm and dry Neurologic: moves all extremities and awake Psychiatric: Orientation: alert, oriented to person and cooperative Results & Data Vital Signs (Past 12 Hours) Vital Signs Temp Pulse Pulse Resp BP Pulse Ox 02/14/19 11:30 36.9 C 70 16 134/60 100 02/14/19 09:14 62 02/14/19 06:46 36.9 C 64 18 126/51 L 100 02/14/19 04:38 36.9 C 66 18 116/52 L 100 PG Care Time/CCT Total # of Minutes Spent Total Time Spent with Patient: Total time spent is greater than 50% in coordination of care (as documented) at patient's floor/unit and/or counseling patient: (1) GI bleed GI bleed type/associated pathology: unspecified gastrointestinal hemorrhage type Qualified Code(s): K92.2 - Gastrointestinal hemorrhage, unspecified (2) HTN (hypertension) Hypertension type: unspecified Qualified Code(s): I10 - Essential (primary) hypertension
[2019-02-14 19:55] LABS: Hematocrit (blood only) 19.5 % (42-52); Hemoglobin 6.7 g/dL (14.0-18.0)
[2019-02-14] MEDS ORDERED: SODIUM CHLORIDE 0.9% 250 ML IV PRN (19:59)
--- NOTE | 2019-02-14 20:12 | Progress Note ---
Date of Service February 14, 2019 Received a page from the patient's nurse that the patient was getting dizzy when he was ambulating. On brief review of his chart, patient was admitted for GI bleed of likely gastric source. Has already received three units of blood on February 13. Seen by gastroenterology and kept on Protonix. Spoke with patient at bedside. He says that when remaining still in his bed he is completely asymptomatic to include denying chest pain, shortness of breath, abdominal pain, or dizziness/lightheadedness. However, standing or any sudden movement causes lightheadedness. He denies seeing overt melena or hematochezia recently and says that his bowel movement are brownish. Reviewed vitals. Heart regular, lungs clear, on nasal cannula oxygen, soft nontender abdomen. Rechecked hemoglobin this evening and it was 6.7 (down from 8.1 this morning). Plan: - Patient agrees to receive two more units of PRBCs this evening. - Place patient on some LR for mild volume improvement. - Continue to monitor overnight. Yana Lawson, PGY3 Overnight call Results & Data Vital Signs (Past 12 Hours) Vital Signs Temp Pulse Pulse Resp BP Pulse Ox 02/14/19 16:00 72 02/14/19 15:11 36.8 C 69 18 137/53 L 100 02/14/19 11:30 36.9 C 70 16 134/60 100 02/14/19 09:14 62
[2019-02-14] MEDS: PANTOprazole 40 MG TAB PO SCH (22:00)
[2019-02-15 05:47] LABS: BUN Creatinine Ratio 46.2 (10-20); Calcium 7.7 mg/dl (8.5-10.1); Creatinine Clr Calc Pharmacy 46.1 ml/min; Est GFR (African American) 57.6; Est GFR (Non-African American) 49.7; Magnesium 1.8 mg/dl (1.8-2.4); Potassium 3.7 mmol/L (3.5-5.1)
[2019-02-15 05:55] LABS: Hematocrit (blood only) 24.1 % (42-52); Hemoglobin 8.1 g/dL (14.0-18.0); Mean Corpuscular Hgb Conc 33.6 g/dL (32-36); Mean Corpuscular Volume 83.4 fL (80-100); Mean Platelet Volume 9.8 fL (7.4-10.4); Nucleated RBC # (auto) 0.07 K/uL (0-0); Nucleated RBC % (auto) 0.8 %; Platelet Count 214 K/uL (130-400); RDW Coefficient of Variation 20.2 % (11.5-14.5); RDW Standard Deviation 61.6 fL (36.4-46.3); Red Blood Count 2.89 M/uL (4.7-6.1); White Blood Count 9.59 K/uL (4.8-10.8)
[2019-02-15] MEDS: LACTATED RINGER'S 1,000 ML IV SCH ×2 (06:43→07:31)
[2019-02-15] MEDS: IPRATROPIUM BROMIDE/ALBUTEROL respimat INH INH SCH ×4 (07:31→19:26)
[2019-02-15] MEDS: FLUTICASONE/SALMETEROL 250/50 (ADVAIR) 14 PUFF/1 INHALER INH SCH ×2 (07:31→19:26)
[2019-02-15] MEDS: FUROSEMIDE 40 MG TAB PO SCH (07:32)
[2019-02-15] MEDS: FENOFIBRATE NANOCRYSTALLIZED 145 MG TABLET PO SCH (07:32)
[2019-02-15] MEDS: PANTOprazole 40 MG TAB PO SCH ×2 (07:33→19:26)
[2019-02-15] MEDS: ROSUVASTATIN CALCIUM 20 MG TAB PO SCH (07:33)
--- NOTE | 2019-02-15 09:47 | Hospitalist Progress Note ---
Date of Service February 15, 2019 Assessment & Plan (1) GI bleed: Likely gastritis as he started taking aspirin 325mg of his own volition because he thought it would "help his heart." - Holding ASA/Plavix for now -> Likely discharge on Plavix only - GI consulted - No plan for EGD at present but may need to reconsider since Hb continues to drop will make NPO after midnight continue Protonix drip to treat possible gastritis, PUD (2) Acute blood loss anemia: Baseline hemoglobin ~10. Down to 6.1 on admission; s/p 2 units of PRBCs on 02/13. - Hgb dropped to 6.9, transfused additional 2 units, up to 8.1 this morning repeat Hb at 2pm today had further melanotic stool this morning (3) Chronic kidney disease, stage 3: Baseline Cr ~1.5-1.7. - Cr is 1.3 this morning, stop fluids, back on Lasix (4) HTN (hypertension): Only on Lasix as potential BP medication. BP presently in acceptable range. - Continue Lasix (5) Chronic respiratory failure with hypoxia, on home O2 therapy: Respiratory status at baseline. - Continue home inhalers. - DuoNebs PRN (6) DVT prophylaxis: SCDs - Low DVT risk per admission calculator & currently with GI bleed Subjective patient feeling well, sitting up in chair at the moment ate his breakfast, no issues had another dark, melanotic stool this morning no abdominal pain, no vomiting Hb dropped to 6.7 last night, transfused two units, Hb up to 8.1 this morning Cr continue to improve, down to 1.34 from 1.8 on admission discussed being NPO after midnight, may need to consider EGD since he continues to have melena reviewed chart since admission, appreciate GI recommendations Review of Systems Review of Systems: All systems reviewed & are unremarkable except as noted in HPI & below Constitutional: + fatigue; no fever, no chills, no sweats and no weakness Respiratory: + dyspnea on exertion; no cough and no dyspnea Cardiovascular: no chest pain and no edema Gastrointestinal: + melena; no abdominal pain, no nausea, no vomiting, no constipation and no diarrhea/loose stools Genitourinary: + difficulty urinating Physical Exam Constitutional: WD/WN, vitals as above Eyes: PERRL, conjunctivae normal, anicteric sclerae ENMT: external ear and nose normal, oropharynx normal Neck: trachea midline, no thyromegaly Respiratory: normal respiratory effort, lungs clear to auscultation Cardiovascular: RRR, no murmur, no edema Gastrointestinal (Abdomen): normal bowel sounds, soft, nontender, no hepatosplenomegaly Musculoskeletal: no cyanosis or clubbing, extremities motor strength 5/5 Skin: no rashes, warm and dry Neurologic: patellar DTR's 2+ bilat, sensation intact and PERRL, EOMI, accommodation nl, no face palsy, no dysarthria Psychiatric: A+Ox3, euthymic affect Lymphatic: no cervical or axillary lymphadenopathy Results & Data Vital Signs (Past 12 Hours) Vital Signs Temp Pulse Pulse Resp BP BP Pulse Ox 02/15/19 07:29 36.8 C 54 L 20 123/56 L 100 02/15/19 04:40 36.9 C 60 20 130/55 L 100 02/15/19 01:40 36.9 C 63 20 130/52 L 100 02/15/19 01:30 36.9 C 64 22 131/54 L 100 02/15/19 01:15 36.9 C 66 21 135/55 L 100 02/15/19 01:00 37 C 66 23 125/51 L 100 02/15/19 00:45 37 C 67 24 134/51 L 100 02/15/19 00:30 36.9 C 71 22 135/57 L 100 02/15/19 00:15 36.9 C 72 25 H 129/54 L 100 02/15/19 00:00 36.9 C 78 17 135/51 L 100 02/14/19 23:45 36.9 C 72 24 137/51 L 100 02/14/19 23:30 75 26 H 131/53 L 100 02/14/19 23:28 37 C 79 20 132/53 L 100 02/14/19 23:15 37 C 75 24 132/57 L 100 02/14/19 23:00 77 24 133/54 L 100 02/14/19 22:45 74 25 H 145/65 H 100 02/14/19 22:39 85 35 H 146/38 H 100 02/14/19 22:30 105 H 30 H 146/38 H 100 02/14/19 22:15 85 22 135/55 L 100 02/14/19 22:00 84 25 H 134/77 100 02/14/19 21:45 87 26 H 133/57 L 100 Laboratory Results Laboratory Results - last 24 hr 02/13/19 02/14/19 02/15/19 10:53 19:41 05:08 WBC 9.59 RBC 2.89 L Hgb 6.7 L* 8.1 L Hct 19.5 L* 24.1 L MCV 83.4 D MCH 28.0 MCHC 33.6 RDW Std Deviation 61.6 H RDW Coeff of Brandon 20.2 H Plt Count 214 MPV 9.8 Absolute Nucleated RBC 0.07 H Nucleated RBC % (auto) 0.8 Sodium Potassium Chloride Carbon Dioxide Anion Gap BUN Creatinine Est Cr Clr Drug Dosing Est GFR ( Amer) Est GFR (Non-Af Amer) BUN/Creatinine Ratio Glucose Calcium Magnesium Blood Type A Positive Antibody Screen NEGATIVE Crossmatch See Detail 02/15/19 05:08 WBC RBC Hgb Hct MCV MCH MCHC RDW Std Deviation RDW Coeff of Brandon Plt Count MPV Absolute Nucleated RBC Nucleated RBC % (auto) Sodium 141 Potassium 3.7 Chloride 112 H Carbon Dioxide 24 Anion Gap 5.0 BUN 62 H Creatinine 1.34 D Est Cr Clr Drug Dosing 46.1 Est GFR ( Amer) 57.6 Est GFR (Non-Af Amer) 49.7 BUN/Creatinine Ratio 46.2 H Glucose 101 H Calcium 7.7 L Magnesium 1.8 Blood Type Antibody Screen Crossmatch Medications Administered Current Inpatient Medications Albuterol (Combivent Respimat) 1 puffs INH QID [facility] Stop: 03/15/19 13:20 Last Admin: 02/15/19 07:31 Dose: 1 puffs Documented by: Fenofibrate (Tricor) 145 mg PO QAM [facility] Stop: 03/17/19 08:59 Last Admin: 02/15/19 07:32 Dose: 145 mg Documented by: Furosemide (Lasix) 40 mg PO QAM [facility] Stop: 03/17/19 08:59 Last Admin: 02/15/19 07:32 Dose: 40 mg Documented by: Sodium Chloride (Nss) 250 mls @ 15 mls/hr IV .[id number] PRN PRN Reason: For Transfusion Stop: 03/15/19 11:01 Sodium Chloride (Nss) 250 mls @ 15 mls/hr IV .[id number] PRN PRN Reason: For Transfusion Stop: 03/15/19 13:20 Lactated Ringer's (Lr) 1,000 mls @ 80 mls/hr IV .[id number] [facility] Stop: 03/16/19 19:29 Last Admin: 02/15/19 07:31 Dose: 80 mls/hr Documented by: Sodium Chloride (Nss) 250 mls @ 15 mls/hr IV .[id number] PRN PRN Reason: For Transfusion Stop: 03/16/19 19:58 Pantoprazole Sodium (Protonix) 40 mg PO BID [facility] Stop: 03/16/19 20:59 Last Admin: 02/15/19 07:33 Dose: 40 mg Documented by: Rosuvastatin Calcium (Crestor) 20 mg PO QAM [facility] Stop: 03/17/19 08:59 Last Admin: 02/15/19 07:33 Dose: 20 mg Documented by: Fluticasone/Salmeterol (Advair Diskus 250/50) 1 puffs INH BID [facility] Stop: 03/15/19 20:59 Last Admin: 02/15/19 07:31 Dose: 1 puffs Documented by: PG Care Time/CCT Total # of Minutes Spent Total Time Spent with Patient: Total time spent is greater than 50% in coordination of care (as documented) at patient's floor/unit and/or counseling patient: (1) GI bleed GI bleed type/associated pathology: unspecified gastrointestinal hemorrhage type Qualified Code(s): K92.2 - Gastrointestinal hemorrhage, unspecified (2) HTN (hypertension) Hypertension type: unspecified Qualified Code(s): I10 - Essential (primary) hypertension
[2019-02-15 14:23] LABS: Hematocrit (blood only) 27.1 % (42-52); Hemoglobin 9.2 g/dL (14.0-18.0)
--- NOTE | 2019-02-15 16:14 | Gastroenterology Progress Note ---
Date of Service February 15, 2019 Assessment & Plan (1) Acute blood loss anemia: (2) GI bleed: (3) Melena: Continue Protonix gtt at present NPO after midnight Transfuse to maintain H/H around 824 EGD in AM if patient is agreeable. Subjective Mr. Rangel was sitting up in a chair at his bedside, when I saw him this AM. He was feeling well. Denies any abdominal pain, fevers, chills, nausea, vomiting, lightheadedness or dizziness. He did have a large dark BM this AM. He has received 5 u PRBC since his admission. His H/H this afternoon was improved. Review of Systems Review of Systems: All systems reviewed & are unremarkable except as noted in HPI & below Physical Exam Constitutional: Chronic ill-appearing, NAD Respiratory: normal respiratory effort, lungs clear to auscultation Cardiovascular: RRR, no murmur, no edema Gastrointestinal (Abdomen): normal bowel sounds, soft, nontender, no hepatosplenomegaly Results & Data Vital Signs (Past 12 Hours) Vital Signs Temp Pulse Resp BP BP Pulse Ox 02/15/19 15:44 36.3 C L 68 18 140/60 100 02/15/19 11:25 36.7 C 60 18 136/58 L 100 02/15/19 07:29 36.8 C 54 L 20 123/56 L 100 02/15/19 04:40 36.9 C 60 20 130/55 L 100 PG Care Time/CCT Total # of Minutes Spent Total Time Spent with Patient: Total time spent is greater than 50% in coordination of care (as documented) at patient's floor/unit and/or counseling patient: (1) GI bleed GI bleed type/associated pathology: unspecified gastrointestinal hemorrhage type Qualified Code(s): K92.2 - Gastrointestinal hemorrhage, unspecified
[2019-02-16 08:12] LABS: Hematocrit (blood only) 23.6 % (42-52); Mean Corpuscular Hemoglobin 28.9 pg (25-34); Mean Corpuscular Hgb Conc 33.9 g/dL (32-36); Mean Corpuscular Volume 85.2 fL (80-100); Mean Platelet Volume 10.4 fL (7.4-10.4); Platelet Count 231 K/uL (130-400); RDW Standard Deviation 63.4 fL (36.4-46.3); Red Blood Count 2.77 M/uL (4.7-6.1); White Blood Count 7.14 K/uL (4.8-10.8)
[2019-02-16 08:41] LABS: BUN Creatinine Ratio 29.9 (10-20); Creatinine Clr Calc Pharmacy 43.5 ml/min; Est GFR (African American) 55.1; Est GFR (Non-African American) 47.5; Potassium 3.2 mmol/L (3.5-5.1)
--- NOTE | 2019-02-16 09:17 | Hospitalist Progress Note ---
Date of Service February 16, 2019 Assessment & Plan (1) GI bleed: Likely gastritis as he started taking aspirin 325mg of his own volition because he thought it would "help his heart." - Holding ASA/Plavix for now -> Likely discharge on Plavix only - GI consulted - tentatively plan for EGD today was NPO since midnight continue Protonix (2) Acute blood loss anemia: Baseline hemoglobin ~10. Down to 6.1 on admission; s/p 2 units of PRBCs on 02/13. - Hgb dropped to 6.9, transfused additional 2 units, up to 8.1 yesterday morning and then 9 in the afternoon had another melanotic stool last evening repeat Hb at 2pm today (3) Chronic kidney disease, stage 3: Baseline Cr ~1.5-1.7. - Cr is 1.39 this morning, continue Lasix (4) HTN (hypertension): Only on Lasix as potential BP medication. BP is 130/49 - Continue Lasix (5) Chronic respiratory failure with hypoxia, on home O2 therapy: Respiratory status at baseline. - Continue home inhalers. - DuoNebs PRN (6) Hypokalemia: low at 3.2 today, give 20mEq IV this morning, repeat tomorrow (7) DVT prophylaxis: SCDs - Low DVT risk per admission calculator & currently with GI bleed Subjective patient resting in bed had one further melanotic stool last evening Hb was up to 9 yesterday afternoon, back down to 8.0 this morning vitals stable K is slightly low at 3.2, will replace with IV patient is NPO for possible EGD today given his ongoing melena patient is on 4L NC chronically, he denies shortness of breath, denies chest pain he is medically stable for EGD Review of Systems Review of Systems: All systems reviewed & are unremarkable except as noted in HPI & below Constitutional: + fatigue; no fever, no chills, no sweats and no weakness Respiratory: + dyspnea on exertion; no cough and no dyspnea Gastrointestinal: + melena; no abdominal pain, no nausea, no vomiting, no constipation and no diarrhea/loose stools Genitourinary: + difficulty urinating Physical Exam Constitutional: WD/WN, vitals as above Eyes: PERRL, conjunctivae normal, anicteric sclerae ENMT: external ear and nose normal, oropharynx normal Neck: trachea midline, no thyromegaly Respiratory: normal respiratory effort, lungs clear to auscultation Cardiovascular: RRR, no murmur, no edema Gastrointestinal (Abdomen): normal bowel sounds, soft, nontender, no hepatosplenomegaly Musculoskeletal: no cyanosis or clubbing, extremities motor strength 5/5 Skin: no rashes, warm and dry Neurologic: patellar DTR's 2+ bilat, sensation intact and PERRL, EOMI, accommodation nl, no face palsy, no dysarthria Psychiatric: A+Ox3, euthymic affect Lymphatic: no cervical or axillary lymphadenopathy Results & Data Vital Signs (Past 12 Hours) Vital Signs Temp Pulse Resp BP BP Pulse Ox 02/16/19 07:24 36.8 C 56 L 16 130/49 L 02/16/19 04:41 36.6 C 57 L 22 142/50 H 100 02/15/19 23:46 36.9 C 60 18 134/47 L 100 Laboratory Results Laboratory Results - last 24 hr 02/15/19 02/16/19 02/16/19 14:06 07:52 07:52 WBC 7.14 RBC 2.77 L Hgb 9.2 L 8.0 L Hct 27.1 L 23.6 L MCV 85.2 MCH 28.9 MCHC 33.9 RDW Std Deviation 63.4 H RDW Coeff of Brandon 21.0 H Plt Count 231 MPV 10.4 Sodium 145 Potassium 3.2 L Chloride 111 H Carbon Dioxide 27 Anion Gap 6.0 BUN 42 H Creatinine 1.39 Est Cr Clr Drug Dosing 43.5 Est GFR ( Amer) 55.1 Est GFR (Non-Af Amer) 47.5 BUN/Creatinine Ratio 29.9 H Glucose 100 H Calcium 8.0 L Medications Administered Current Inpatient Medications Albuterol (Combivent Respimat) 1 puffs INH QID [facility] Stop: 03/15/19 13:20 Last Admin: 02/15/19 19:26 Dose: 120 puffs Documented by: [facility]ibrate ([facility]ricor) [facility] Stop: 03/17/19 08:59 Last Admin: 02/15/19 07:32 Dose: 145 mg Documented by: [facility]urosemide (Lasix) [facility] Stop: 03/17/19 08:59 Last Admin: 02/15/19 07:32 Dose: 40 mg Documented by: Sodium Chloride (Nss) 250 mls @ 15 mls/hr IV .[id number] PRN PRN Reason: For Transfusion Stop: 03/15/19 11:01 Sodium Chloride (Nss) 250 mls @ 15 mls/hr IV .[id number] PRN PRN Reason: For Transfusion Stop: 03/15/19 13:20 Sodium Chloride (Nss) 250 mls @ 15 mls/hr IV .[id number] PRN PRN Reason: For Transfusion Stop: 03/16/19 19:58 Potassium Chloride (K Dimitris / Wtr) 10 meq in 100 mls @ 100 mls/hr IV Q1H [facility] Stop: 02/16/19 11:14 Pantoprazole Sodium (Protonix) 40 mg PO BID [facility] Stop: 03/16/19 20:59 Last Admin: 02/15/19 19:26 Dose: 40 mg Documented by: Rosuvastatin Calcium (Crestor) 20 mg PO QAM [facility] Stop: 03/17/19 08:59 Last Admin: 02/15/19 07:33 Dose: 20 mg Documented by: Fluticasone/Salmeterol (Advair Diskus 250/50) 1 puffs INH BID [facility] Stop: 03/15/19 20:59 Last Admin: 02/15/19 19:26 Dose: 14 puffs Documented by: PG Care Time/CCT Total # of Minutes Spent Total Time Spent with Patient: Total time spent is greater than 50% in coordination of care (as documented) at patient's floor/unit and/or counseling patient: (1) GI bleed GI bleed type/associated pathology: unspecified gastrointestinal hemorrhage type Qualified Code(s): K92.2 - Gastrointestinal hemorrhage, unspecified (2) HTN (hypertension) Hypertension type: unspecified Qualified Code(s): I10 - Essential (primary) hypertension
[2019-02-16] MEDS: FENOFIBRATE NANOCRYSTALLIZED 145 MG TABLET PO SCH (09:20)
[2019-02-16] MEDS: IPRATROPIUM BROMIDE/ALBUTEROL respimat INH INH SCH ×4 (09:20→20:29)
[2019-02-16] MEDS: FLUTICASONE/SALMETEROL 250/50 (ADVAIR) 14 PUFF/1 INHALER INH SCH ×2 (09:20→20:29)
[2019-02-16] MEDS: PANTOprazole 40 MG TAB PO SCH (09:20)
[2019-02-16] MEDS: ROSUVASTATIN CALCIUM 20 MG TAB PO SCH (09:20)
[2019-02-16] MEDS: FUROSEMIDE 40 MG TAB PO SCH (09:20)
[2019-02-16] MEDS ORDERED: FUROSEMIDE 20 MG in SYRINGE 0 ML IV ONE (09:45)
--- NOTE | 2019-02-16 10:21 | Gastroenterology Progress Note ---
Date of Service February 16, 2019 Assessment & Plan (1) Melena: EGD by Dr. Arrieta today for melena, hematochezia, acute blood loss anemia,with further recommendations to follow EGD. Present on Admission?: Yes (2) Acute blood loss anemia: Present on Admission?: Yes Supervising Physician Co-Signing Physician Notes I have performed a history and physical examination of this patient and reviewed the electronic medical record. Specifically, on physical examination there is no abdominal tenderness. I have discussed the case with LAUREANO Clark. The above note reflects my findings, conclusions, and recommendations. Luc Arrieta MD Subjective Mr. Sathish Rangel is an 79 yr old male who presented on 02/13 with report of melena. Nursing reports a BM with red blood rectally yesterday, no BMs since then. Pt denies abdominal pain. Anemia: Hb 6.1 on arrival, received 5 units of RBCs Hb today 8. On Plavix/ASA at home, held since arrival. No N/V abd pain. No tachycardia or hypotension. On 2L O2 by NC (has COPD), no SOB. Review of Systems Review of Systems: ROS: Gen: Denies weakness, fevers, weight loss Eyes: No eye redness, or pain, no recent vision changes Resp: No SOB, no cough Cardio: No palpitations/irregular beats, no chest pain GI: No abdominal pain, no nausea/vomiting : Denies pain on urination Skin: No jaundice, itching or new rashes Physical Exam Constitutional: WD/WN, vitals as above + thin Eyes: PERRL, conjunctivae normal, anicteric sclerae ENMT: external ear and nose normal, oropharynx normal Neck: trachea midline, no thyromegaly Cardiovascular: RRR, no murmur, no edema Gastrointestinal (Abdomen): normal bowel sounds, soft, nontender, no hepatosplenomegaly Musculoskeletal: no cyanosis or clubbing, extremities motor strength 5/5 Skin: no rashes, warm and dry Neurologic: PERRL, EOMI, accommodation nl, no face palsy, no dysarthria Psychiatric: A+Ox3, euthymic affect Lymphatic: no cervical or axillary lymphadenopathy Results & Data Vital Signs (Past 12 Hours) Vital Signs Temp Pulse Resp BP BP Pulse Ox 02/16/19 07:24 36.8 C 56 L 16 130/49 L 08/19/19 04:41 36.6 C 57 L 22 142/50 H 100 02/15/19 23:46 36.9 C 60 18 134/47 L 100 Diagnostic Findings NO abd imaging during this admission, but non contrast CT abd/pelvis in December 2018 with: 1. Wall thickening of the descending duodenum with periduodenal inflammatory change is evidence of duodenitis, likely primary. This diagnosis is favored over pancreatitis with secondary inflammatory change of the duodenum as the inflammation does not appear to largely center around the pancreatic head. Correlate with lipase. 2. No nephrolithiasis or hydronephrosis. Few cysts noted in the kidneys. Suspected chronic atrophy of the left kidney. 3. Chronic fibrotic lung disease.
[2019-02-16] MEDS: POTASSIUM CHLORIDE / WTR 10 MEQ/100 ML PLCT IV SCH ×2 (10:30→11:37)
[2019-02-16] MEDS: FAMOTIDINE 20 MG in SYRINGE 3 ML IV SCH ×2 (10:30→20:29)
[2019-02-16] MEDS ORDERED: ATROPINE SULFATE 0.1 MG/ML 10ML SYR IV PRN (11:27)
[2019-02-16] MEDS ORDERED: ePHEDrine sulfate 50 MG/ML AMP IV PRN (11:27)
--- NOTE | 2019-02-16 11:27 | Anesthesiology Consultation ---
Date of Service February 16, 2019 Assessment & Plan Chart Review Chart Review: Acceptable Risk for Surgery and Patient NOT seen in Pre Admission Testing Consults Requested none ASA ASA4 Proposed Anesthesia Anesthesia Type: MAC Risk / Benefits Reviewed With: PT / POA / Parent / Guardian, Accepts Plan and Informed Consent Obtained History Surgery Operation Date: 02/16/19 09:00 Proposed Procedures p Esophagogastroduodenoscopy Dr Ngozi Arrieta MD Height/Weight Height: 5 ft 11 in Weight: 72.6 kg Allergies Allergy/AdvReac Type Severity Reaction Status Date / Time No Known Allergies Allergy Verified 02/13/19 11:35 Medications Home Medications Medication Instructions Recorded Confirmed Last Taken Combivent Respimat 1 puff INHALATION QID 01/15/19 02/13/19 02/12/19 furosemide 40 mg PO QAM 01/15/19 02/13/19 02/12/19 rosuvastatin 20 mg PO QAM 01/15/19 02/13/19 02/12/19 potassium chloride 20 meq PO QAM 01/21/19 02/13/19 02/12/19 clopidogrel 75 mg tablet 75 mg PO DAILY #90 tab 01/28/19 02/13/19 02/12/19 fenofibrate nanocrystallized 145 145 mg PO DAILY #90 tab 01/28/19 02/13/19 02/12/19 mg tablet fluticasone 250 mcg-salmeterol 50 1 puffs INH BID #14 ea 01/30/19 02/13/19 02/12/19 mcg/dose blistr powdr for inhalation aspirin 325 mg tablet 325 mg PO QAM #30 tab 02/05/19 02/13/19 02/12/19 omeprazole magnesium [Prilosec OTC] 20 mg PO QAM 02/13/19 02/13/19 02/12/19 Active Medications Generic Name Dose Route Start Last Admin Trade Name Freq PRN Reason Stop Dose Admin Albuterol 1 puffs 02/13/19 13:21 02/16/19 09:20 Combivent Respimat INH 03/15/19 13:20 1 puffs QID STEFAN Administration Fenofibrate 145 mg 02/15/19 09:00 02/16/19 09:20 Tricor PO 03/17/19 08:59 Not Given QAM STEFAN Furosemide 40 mg 02/15/19 09:00 02/16/19 09:20 Lasix PO 03/17/19 08:59 Not Given QAM STEFAN Famotidine 20 mg/ Syringe 5 mls @ 2.5 mls/min 02/16/19 09:45 02/16/19 10:30 IV 03/18/19 09:44 2.5 mls/min BID STEFAN Administration Pantoprazole Sodium 40 mg 02/14/19 21:00 02/16/19 09:20 Protonix PO 03/16/19 20:59 Not Given BID STEFAN Rosuvastatin Calcium 20 mg 02/15/19 09:00 02/16/19 09:20 Crestor PO 03/17/19 08:59 Not Given QAM ST[facility]AN Fluticasone/Salmeterol 1 puffs 02/13/19 21:00 02/16/19 09:20 Advair Diskus 250/50 INH 03/15/19 20:59 1 puffs BID STEFAN Administration NPO Date Last Intake of Fluids: 02/15/19 Time Last Intake of Fluids: 20:00 Date Last Intake of Solids: 02/15/19 Time Last Intake of Solids: 12:00 Past Medical History Medical History Chronic respiratory failure (Chronic) COPD (chronic obstructive pulmonary disease) (Chronic) Sinus bradycardia (Acute) XOCHITL (acute kidney injury) (Acute) Orthostasis (Acute) Dehydration (Acute) Acute respiratory failure with hypoxia HTN (hypertension) CVA (cerebral vascular accident) Carotid bruit present Chronic kidney disease, stage 3 Chronic venous insufficiency Dysphagia Exercise / Class Metabolic Activity III < 4 Walking/Shop/Light housework Past Family History Family History Other Family history non-contributory Past Surgical History Surgical History History of umbilical hernia repair Past Anesthesia History No Hx of Anesthesia Complications and No Family Hx of Anesthesia Complications History of PONV No Hx of PONV and No Hx of Motion Sickness Social History Smoking Status: Never smoker tobacco type: cigarettes Do You Dip or Chew Tobacco: No Hx Alcohol Use: Yes Alcohol type: wine alcohol intake frequency: a few times a month Hx Substance Use: No substance use type: does not use Physical Exam Vital Signs Last Vital Signs Temp 36.6 C 02/16/19 11:19 Pulse 67 02/16/19 11:19 Resp 16 02/16/19 11:19 BP 141/55 H 02/16/19 11:19 Pulse Ox 100 02/16/19 11:19 Constitutional not obese ENMT Mouth: + edentulous Thyromental Distance: > or= 3.5 Finger Breadths Mallampati Class: II Neck normal visual inspection, trachea midline and + facial hair; neck extension not limited Respiratory normal respiratory effort Auscultation: lungs clear to auscultation bilaterally Cardiovascular Rate/Rhythm: regular rate and regular rhythm Heart Sounds: no murmur Vessels: no carotid bruit Musculoskeletal Spine: normal cervical ROM Neurologic moves all extremities Motor/Sensory: no sensory deficit Psychiatric Orientation: alert and oriented x 3 Testing Laboratory Results 02/16/19 07:52 02/16/19 07:52 PT 12.1 Seconds (9.0-12.0) H 02/13/19 10:53 INR 1.2 (0.9-1.1) H 02/13/19 10:53 APTT 22.5 Seconds (21.0-31.0) 02/13/19 10:53 Blood Type A Positive 02/13/19 10:53 Antibody Screen NEGATIVE 02/13/19 10:53
[2019-02-16] MEDS ORDERED: LIDOCAINE HCL 2% 2 ML VIAL/AMP(20MG/ML) INFIL ONE (12:03)
[2019-02-16] MEDS ORDERED: ONDANSETRON INJ 2 MG/ML 2 ML VIAL ONE (12:04)
[2019-02-16] MEDS ORDERED: PROPOFOL IV EMULSION 10 MG/ML 20 ML VIAL IV ONE ×2 (12:04)
--- NOTE | 2019-02-16 12:27 | GI REPORT ---
Patient Name: Sathish Rangel Procedure Date: 02/16/2019 12:15 PM Date of : 1940 Admit Type: Inpatient Age: 79 Gender: Male Attending MD: Luc Arrieta MD Procedure: Upper GI endoscopy Providers: Luc Arrieta MD Referring MD: Simone Nichols Indications: Melena Medicines: Monitored Anesthesia Care Complications: No immediate complications. Estimated blood loss: None. Estimated Blood Loss: Estimated blood loss: none. Procedure: Pre-Anesthesia Assessment: - Prior to the procedure, a History and Physical was performed, and patient medications, allergies and sensitivities were reviewed. The patient's tolerance of previous anesthesia was reviewed. - ASA Grade Assessment: IV - A patient with severe systemic disease that is a constant threat to life. After obtaining informed consent, the endoscope was passed under direct vision. Throughout the procedure, the patient's blood pressure, pulse, and oxygen saturations were monitored continuously. The Endoscope was introduced through the mouth, and advanced to the third part of duodenum. The upper GI endoscopy was accomplished with ease. The patient tolerated the procedure well. Findings: The upper third of the esophagus, middle third of the esophagus and lower third of the esophagus were normal. The Z-line was regular and was found 39 cm from the incisors. A small hiatal hernia was present. The entire examined stomach was normal. Biopsies were taken with a cold forceps for Helicobacter pylori testing. One non-bleeding cratered duodenal ulcer with no stigmata of bleeding was found in the second portion of the duodenum. The lesion was 4 mm in largest dimension. Impression: - Normal upper third of esophagus, middle third of esophagus and lower third of esophagus. - Z-line regular, 39 cm from the incisors. - Small hiatal hernia. - Normal stomach. Biopsied. - One non-bleeding duodenal ulcer with no stigmata of bleeding. Recommendation: - [facility] care. Luc Arrieta M.D. Luc Arrieta MD 02/16/2019 12:27:43 PM This report has been signed electronically. Note Initiated On: 02/16/2019 12:15 PM Number of Addenda: 0 I attest to the content of the Intraoperative Record and orders documented therein, exceptions below {[id number]}
--- NOTE | 2019-02-16 12:42 | Anesthesiology Progress Note ---
Date of Service February 16, 2019 Anesthesia Post Procedure Vital Signs Vital Signs: Temp Pulse Resp BP BP Pulse Ox 02/16/19 11:19 36.6 C 67 16 141/55 H 100 02/16/19 07:24 36.8 C 56 L 16 130/49 L 02/16/19 04:41 36.6 C 57 L 22 142/50 H 100 02/15/19 23:46 36.9 C 60 18 134/47 L 100 02/15/19 19:33 36.6 C 70 16 141/60 H 100 02/15/19 15:44 36.3 C L 68 18 140/60 100 Transfer of Care Handoff Completed per policy Notes Mental Status: alert / awake / arousable Patient Amnestic to Procedure: Yes Nausea / Vomiting: adequately controlled Pain: adequately controlled Airway Patency, RR, SpO2: stable & adequate BP & HR: stable & adequate Hydration State: stable & adequate Anesthetic Complications: no major complications apparent
[2019-02-16 14:19] LABS: Hematocrit (blood only) 26.6 % (42-52); Hemoglobin 8.8 g/dL (14.0-18.0)
[2019-02-17 05:59] LABS: Hematocrit (blood only) 24.1 % (42-52); Hemoglobin 8.1 g/dL (14.0-18.0)
[2019-02-17 06:41] LABS: Calcium 7.9 mg/dl (8.5-10.1); Creatinine Clr Calc Pharmacy 48.6 ml/min; Est GFR (African American) 64.5; Est GFR (Non-African American) 55.6; Potassium 3.4 mmol/L (3.5-5.1)
--- NOTE | 2019-02-17 08:13 | Anesthesiology Progress Note ---
Date of Service February 17, 2019 Anesthesia Post Procedure Vital Signs Vital Signs: Temp Pulse Pulse Resp BP BP Pulse Ox 02/17/19 07:40 51 L 02/17/19 07:00 36.4 C L 55 L 16 125/52 L 96 02/17/19 03:38 36.4 C L 59 L 16 127/58 L 99 02/16/19 23:26 37 C 61 18 143/59 H 100 02/16/19 18:40 36.7 C 52 L 20 150/55 H 100 02/16/19 16:00 36.8 C 52 L 18 146/64 H 95 02/16/19 12:59 54 L 18 123/58 L 100 02/16/19 12:44 51 L 18 133/52 L 100 02/16/19 12:29 61 20 138/60 100 02/16/19 11:19 36.6 C 67 16 141/55 H 100 Notes Mental Status: alert / awake / arousable and participated in evaluation Patient Amnestic to Procedure: Yes Nausea / Vomiting: adequately controlled Pain: adequately controlled Airway Patency, RR, SpO2: stable & adequate BP & HR: stable & adequate Hydration State: stable & adequate Anesthetic Complications: no major complications apparent and Pt Satisfied with anesthetic care
[2019-02-17] MEDS: POTASSIUM CHLORIDE 20 MEQ TABCR PO SCH ×2 (08:40→19:45)
[2019-02-17] MEDS: FLUTICASONE/SALMETEROL 250/50 (ADVAIR) 14 PUFF/1 INHALER INH SCH ×2 (08:41→19:45)
[2019-02-17] MEDS: ROSUVASTATIN CALCIUM 20 MG TAB PO SCH (08:41)
[2019-02-17] MEDS: IPRATROPIUM BROMIDE/ALBUTEROL respimat INH INH SCH ×4 (08:42→19:45)
[2019-02-17] MEDS: FENOFIBRATE NANOCRYSTALLIZED 145 MG TABLET PO SCH (08:43)
[2019-02-17] MEDS: PANTOprazole 40 MG TAB PO SCH ×2 (09:31→19:45)
[2019-02-17] MEDS: FUROSEMIDE 40 MG TAB PO SCH (09:31)
--- NOTE | 2019-02-17 09:46 | Hospitalist Progress Note ---
Date of Service February 17, 2019 Assessment & Plan (1) GI bleed: EGD on 02/16 showed duodenal ulcer, not bleeding, no stigmata of bleeding, stomach showed no gastritis or ulcers continue on Protonix BID advance from full liquid to heart healthy diet Hb down slightly to 8.1, will repeat this afternoon (2) Acute blood loss anemia: Baseline hemoglobin ~10. Down to 6.1 on admission; s/p 2 units of PRBCs on 02/13. - Hgb dropped to 6.9, transfused additional 2 units no further melena this morning Hb down slightly at 8.1, repeat this afternoon, BP stable (3) Chronic kidney disease, stage 3: Baseline Cr ~1.5-1.7. - Cr is 1.22 today (4) HTN (hypertension): Only on Lasix as potential BP medication. BP is 130/49 - Continue Lasix (5) Chronic respiratory failure with hypoxia, on home O2 therapy: Respiratory status at baseline, on 4L NC, denies any dyspnea - Continue home inhalers. - DuoNebs PRN (6) Hypokalemia: low at 3.4 today, start on KCl 20 BID repeat tomorrow (7) DVT prophylaxis: SCDs - Low DVT risk per admission calculator & currently with GI bleed Plan: consult PT/OT, consider downgrade to medical floor later today Subjective patient feeling well, sitting up in a chair today no light headedness had a very small smear in his depends today, was dark per the nurse reviewed labs, Hb is 8.1, down from 8.8, BP stable K is slightly low at 3.4 discussed that we would repeat H/H this afternoon, consider downgrade to medical floor need to get him working with therapy possible d/c in a few days if strong enough Review of Systems Review of Systems: All systems reviewed & are unremarkable except as noted in HPI & below Constitutional: + fatigue; no fever, no chills, no sweats and no weakness Respiratory: + dyspnea on exertion; no cough and no dyspnea Gastrointestinal: + melena (smear on depends, not a true BM); no abdominal pain, no nausea, no vomiting, no constipation and no diarrhea/loose stools Genitourinary: + difficulty urinating Physical Exam Constitutional: WD/WN, vitals as above Eyes: PERRL, conjunctivae normal, anicteric sclerae ENMT: external ear and nose normal, oropharynx normal Neck: trachea midline, no thyromegaly Respiratory: normal respiratory effort, lungs clear to auscultation Cardiovascular: RRR, no murmur, no edema Gastrointestinal (Abdomen): normal bowel sounds, soft, nontender, no hepatosplenomegaly Musculoskeletal: no cyanosis or clubbing, extremities motor strength 5/5 Skin: no rashes, warm and dry Neurologic: patellar DTR's 2+ bilat, sensation intact and PERRL, EOMI, accommodation nl, no face palsy, no dysarthria Psychiatric: A+Ox3, euthymic affect Lymphatic: no cervical or axillary lymphadenopathy Results & Data Vital Signs (Past 12 Hours) Vital Signs Temp Pulse Pulse Resp BP Pulse Ox 02/17/19 07:40 51 L 02/17/19 07:00 36.4 C L 55 L 16 125/52 L 96 02/17/19 03:38 36.4 C L 59 L 16 127/58 L 99 02/16/19 23:26 37 C 61 18 143/59 H 100 Laboratory Results Laboratory Results - last 24 hr 02/16/19 02/17/19 02/17/19 14:07 05:46 05:46 Hgb 8.8 L 8.1 L Hct 26.6 L 24.1 L Sodium 143 Potassium 3.4 L Chloride 111 H Carbon Dioxide 26 Anion Gap 6.0 BUN 27 H Creatinine 1.22 Est Cr Clr Drug Dosing 48.6 Est GFR ( Amer) 64.5 Est GFR (Non-Af Amer) 55.6 BUN/Creatinine Ratio 22.0 H Glucose 89 Calcium 7.9 L Medications Administered Current Inpatient Medications Albuterol (Combivent Respimat) 1 puffs INH QID [facility] Stop: 03/15/19 13:20 Last Admin: 02/17/19 08:42 Dose: 1 puffs Documented by: Fenofibrate (Tricor) 145 mg PO QAM [facility] Stop: 03/17/19 08:59 Last Admin: 02/17/19 08:43 Dose: 145 mg Documented by: Furosemide (Lasix) 40 mg PO QAM [facility] Stop: 03/17/19 08:59 Last Admin: 02/17/19 09:31 Dose: 40 mg Documented by: Sodium Chloride (Nss) 250 mls @ 15 mls/hr IV .[id number] PRN PRN Reason: For Transfusion Stop: 03/15/19 11:01 Sodium Chloride (Nss) 250 mls @ 15 mls/hr IV .[id number] PRN PRN Reason: For Transfusion Stop: 03/15/19 13:20 Sodium Chloride (Nss) 250 mls @ 15 mls/hr IV .[id number] PRN PRN Reason: For Transfusion Stop: 03/16/19 19:58 Pantoprazole Sodium (Protonix) 40 mg PO BID [facility] Stop: 03/16/19 20:59 Last Admin: 02/17/19 09:31 Dose: 40 mg Documented by: Potassium Chloride (Klor-Con M20) 20 meq PO BID [facility] Stop: 03/19/19 08:59 Last Admin: 02/17/19 08:40 Dose: 20 meq Documented by: Rosuvastatin Calcium (Crestor) 20 mg PO QAM [facility] Stop: 03/17/19 08:59 Last Admin: 02/17/19 08:41 Dose: 20 mg Documented by: Fluticasone/Salmeterol (Advair Diskus 250/50) 1 puffs INH BID [facility] Stop: 03/15/19 20:59 Last Admin: 02/17/19 08:41 Dose: 1 puffs Documented by: PG Care Time/CCT Total # of Minutes Spent Total Time Spent with Patient: Total time spent is greater than 50% in coordination of care (as documented) at patient's floor/unit and/or counseling patient: (1) GI bleed GI bleed type/associated pathology: unspecified gastrointestinal hemorrhage type Qualified Code(s): K92.2 - Gastrointestinal hemorrhage, unspecified (2) HTN (hypertension) Hypertension type: unspecified Qualified Code(s): I10 - Essential (primary) hypertension
--- NOTE | 2019-02-17 11:17 | Gastroenterology Progress Note ---
Date of Service February 17, 2019 Assessment & Plan (1) Acute blood loss anemia: Anemia, melena from duodenal ulcer (non bleeding on EGD yesterday). Duodenal ulcer likely NSAID related. PO BID PPI x 2 months, then daily. Hold ASA x 2 weeks, then ? lower dose if possible. May advance to regular consistency diet. No plan for colonoscopy secondary to the cause likely being the duodenal ulcer and prepping/undergoing colonoscopy in this 79 yr old with COPD would be difficult. Present on Admission?: Yes (2) Melena: Continues with two black BMs in the past 24 hrs. Because Hb stable post transfusion, this likely represents residual from prior bleeding vs. less likely current GI bleeding. Continue to monitor Hb, BUN, stool outputs. Present on Admission?: Yes Supervising Physician Co-Signing Physician Notes I have performed a history and physical examination of this patient and reviewed the electronic medical record. Specifically, on physical examination there is no abdominal tenderness. I have discussed the case with LAUREANO Clark. The above note reflects my findings, conclusions, and recommendations. Luc Arrieta MD Subjective Mr. Sathish Rangel is an 79 yr old male with COPD, on home O2 who was admitted on 02/13 for SOB, anemia, self report of melena. Maintained on ASA 325, Plavix. Hb 10-> 6.1, received a total of 5 units of RBCs, Hb today 8.1. EGD yesterday with non bleeding duodenal ulcer. Today, sitting up in a chair. Feels well. No SOB, no abdominal pain. Review of Systems Review of Systems: ROS: Gen: Denies weakness, fevers, weight loss Eyes: No eye redness, or pain, no recent vision changes Resp: No SOB, no cough Cardio: No palpitations/irregular beats, no chest pain GI: No abdominal pain, no nausea/vomiting : Denies pain on urination Skin: No jaundice, itching or new rashes Physical Exam Constitutional: WD/WN, vitals as above + thin Eyes: PERRL, conjunctivae normal, anicteric sclerae ENMT: external ear and nose normal, oropharynx normal Neck: trachea midline, no thyromegaly Respiratory: normal respiratory effort, lungs clear to auscultation Auscultation: + crackles (few fine crackles at the left base); no wheezes Cardiovascular: RRR, no murmur, no edema Gastrointestinal (Abdomen): normal bowel sounds, soft, nontender, no hepatosplenomegaly Skin: no rashes, warm and dry Neurologic: PERRL, EOMI, accommodation nl, no face palsy, no dysarthria Psychiatric: A+Ox3, euthymic affect Lymphatic: no cervical or axillary lymphadenopathy Results & Data Vital Signs (Past 12 Hours) Vital Signs Temp Pulse Pulse Resp BP Pulse Ox 02/17/19 07:40 51 L 02/17/19 07:00 36.4 C L 55 L 16 125/52 L 96 02/17/19 03:38 36.4 C L 59 L 16 127/58 L 99 02/16/19 23:26 37 C 61 18 143/59 H 100
[2019-02-17 14:18] LABS: Hematocrit (blood only) 28.4 % (42-52); Hemoglobin 9.2 g/dL (14.0-18.0)
[2019-02-18 06:08] LABS: Hematocrit (blood only) 23.2 % (42-52); Hemoglobin 7.7 g/dL (14.0-18.0)
[2019-02-18 06:40] LABS: BUN Creatinine Ratio 16.2 (10-20); Calcium 7.8 mg/dl (8.5-10.1); Creatinine Clr Calc Pharmacy 41.5 ml/min; Est GFR (African American) 53.2; Est GFR (Non-African American) 45.9; Potassium 3.8 mmol/L (3.5-5.1)
[2019-02-18] MEDS: ROSUVASTATIN CALCIUM 20 MG TAB PO SCH (08:17)
[2019-02-18] MEDS: FENOFIBRATE NANOCRYSTALLIZED 145 MG TABLET PO SCH (08:17)
[2019-02-18] MEDS: PANTOprazole 40 MG TAB PO SCH ×2 (08:17→21:07)
[2019-02-18] MEDS: POTASSIUM CHLORIDE 20 MEQ TABCR PO SCH ×2 (08:17→21:08)
[2019-02-18] MEDS: FUROSEMIDE 40 MG TAB PO SCH (08:17)
[2019-02-18] MEDS: FLUTICASONE/SALMETEROL 250/50 (ADVAIR) 14 PUFF/1 INHALER INH SCH ×2 (08:18→21:07)
[2019-02-18] MEDS: IPRATROPIUM BROMIDE/ALBUTEROL respimat INH INH SCH ×4 (08:18→21:07)
--- NOTE | 2019-02-18 10:18 | Hospitalist Progress Note ---
Date of Service February 18, 2019 Assessment & Plan (1) GI bleed: EGD on 02/16 showed duodenal ulcer, not bleeding, no stigmata of bleeding, stomach showed no gastritis or ulcers continue on Protonix BID x 2 months and then daily per GI reviewed pathology, negative for H pylori advance from full liquid to heart healthy diet, tolerating well Hb flucuating between 8 and 9 for 48 hours, this AM it is 7.7 does not make sense, suspect lab error, repeat H/H at 1300 his BUN is trending down to 23 which argues against blood in GI tract (2) Acute blood loss anemia: Baseline hemoglobin ~10. Down to 6.1 on admission; s/p 2 units of PRBCs on 02/13. - Hgb dropped to 6.9, transfused additional 2 units no further melena for two days Hb down to 7.7 today, will repeat this afternoon, vitals stable (3) Chronic kidney disease, stage 3: Baseline Cr ~1.5-1.7. - Cr is 1.4 today (4) HTN (hypertension): Only on Lasix as potential BP medication. BP is stable - Continue Lasix (5) Chronic respiratory failure with hypoxia, on home O2 therapy: Respiratory status at baseline, on 4L NC, denies any dyspnea - Continue home inhalers. - DuoNebs PRN (6) Hypokalemia: 3.8 today, continue BID supplementation another day (7) DVT prophylaxis: SCDs - Low DVT risk per admission calculator & currently with GI bleed Plan: consult PT/OT, consider downgrade to medical floor later today Subjective patient resting in bed, feeling well this morning he is eating well no BM today or yesterday, he is urinating well reviewed labs, Hb down to 7.7 from 9 yesterday, unclear why, perhaps lab error his BUN is trending down which argues against active bleeding and no melena for 1.5 days and ulcer was no bleeding on EGD reviewed PT notes, he ambulated 215 feet yesterday, hope for 250 feet today and will do some stairs he needs to be able to get up 2.5 flights of stairs when he gets home discussed that I want to watch him today, shoot for d/c to home tomorrow as long as he is strong enough Review of Systems Review of Systems: All systems reviewed & are unremarkable except as noted in HPI & below Constitutional: no fever, no fatigue and no weakness Respiratory: + dyspnea on exertion (mild yesterday when walking 215 feet); no cough and no dyspnea Cardiovascular: no chest pain, no palpitations and no edema Gastrointestinal: no abdominal pain, no nausea, no vomiting, no constipation, no diarrhea/loose stools and no melena Physical Exam Constitutional: WD/WN, vitals as above Eyes: PERRL, conjunctivae normal, anicteric sclerae ENMT: external ear and nose normal, oropharynx normal Neck: trachea midline, no thyromegaly Respiratory: normal respiratory effort, lungs clear to auscultation Cardiovascular: RRR, no murmur, no edema Gastrointestinal (Abdomen): normal bowel sounds, soft, nontender, no hepatosplenomegaly Musculoskeletal: no cyanosis or clubbing, extremities motor strength 5/5 Skin: no rashes, warm and dry Neurologic: patellar DTR's 2+ bilat, sensation intact and PERRL, EOMI, accommodation nl, no face palsy, no dysarthria Psychiatric: A+Ox3, euthymic affect Lymphatic: no cervical or axillary lymphadenopathy Results & Data Vital Signs (Past 12 Hours) Vital Signs Temp Pulse Resp BP BP Pulse Ox 02/18/19 07:21 36.3 C L 58 L 20 106/67 99 02/18/19 00:00 36.4 C L 60 20 128/64 98 Laboratory Results Laboratory Results - last 24 hr 02/17/19 02/18/19 02/18/19 14:07 05:33 05:33 Hgb 9.2 L 7.7 L Hct 28.4 L 23.2 L Sodium 142 Potassium 3.8 Chloride 110 H Carbon Dioxide 27 Anion Gap 5.0 BUN 23 H Creatinine 1.43 H Est Cr Clr Drug Dosing 41.5 Est GFR ( Amer) 53.2 Est GFR (Non-Af Amer) 45.9 BUN/Creatinine Ratio 16.2 Glucose 98 Calcium 7.8 L Medications Administered Current Inpatient Medications Albuterol (Combivent Respimat) 1 puffs INH QID [facility] Stop: 03/15/19 13:20 Last Admin: 02/18/19 08:18 Dose: 1 puffs Documented by: Fenofibrate (Tricor) 145 mg PO QAM [facility] Stop: 03/17/19 08:59 Last Admin: 02/18/19 08:17 Dose: 145 mg Documented by: Furosemide (Lasix) 40 mg PO QAM [facility] Stop: 03/17/19 08:59 Last Admin: 02/18/19 08:17 Dose: 40 mg Documented by: Sodium Chloride (Nss) 250 mls @ 15 mls/hr IV .[id number] PRN PRN Reason: For Transfusion Stop: 03/15/19 11:01 Sodium Chloride (Nss) 250 mls @ 15 mls/hr IV .[id number] PRN PRN Reason: For Transfusion Stop: 03/15/19 13:20 Sodium Chloride (Nss) 250 mls @ 15 mls/hr IV .[id number] PRN PRN Reason: For Transfusion Stop: 03/16/19 19:58 Pantoprazole Sodium (Protonix) 40 mg PO BID [facility] Stop: 03/16/19 20:59 Last Admin: 02/18/19 08:17 Dose: 40 mg Documented by: Potassium Chloride (Klor-Con M20) 20 meq PO BID [facility] Stop: 03/19/19 08:59 Last Admin: 02/18/19 08:17 Dose: 20 meq Documented by: Rosuvastatin Calcium (Crestor) 20 mg PO QAM [facility] Stop: 03/17/19 08:59 Last Admin: 02/18/19 08:17 Dose: 20 mg Documented by: Fluticasone/Salmeterol (Advair Diskus 250/50) 1 puffs INH BID [facility] Stop: 03/15/19 20:59 Last Admin: 02/18/19 08:18 Dose: 1 puffs Documented by: PG Care Time/CCT Total # of Minutes Spent Total Time Spent with Patient: Total time spent is greater than 50% in coordination of care (as documented) at patient's floor/unit and/or counseling patient: (1) GI bleed GI bleed type/associated pathology: unspecified gastrointestinal hemorrhage type Qualified Code(s): K92.2 - Gastrointestinal hemorrhage, unspecified (2) HTN (hypertension) Hypertension type: unspecified Qualified Code(s): I10 - Essential (primary) hypertension
[2019-02-18 13:36] LABS: Hematocrit (blood only) 25.7 % (42-52); Hemoglobin 8.3 g/dL (14.0-18.0)
[2019-02-19 06:03] LABS: Hematocrit (blood only) 24.1 % (42-52); Hemoglobin 7.9 g/dL (14.0-18.0)
[2019-02-19 06:38] LABS: BUN Creatinine Ratio 14.2 (10-20); Calcium 7.9 mg/dl (8.5-10.1); Creatinine Clr Calc Pharmacy 42.4 ml/min; Est GFR (African American) 54.6; Est GFR (Non-African American) 47.1; Potassium 3.9 mmol/L (3.5-5.1)
[2019-02-19] MEDS: FLUTICASONE/SALMETEROL 250/50 (ADVAIR) 14 PUFF/1 INHALER INH SCH (08:08)
[2019-02-19] MEDS: FUROSEMIDE 40 MG TAB PO SCH (08:09)
[2019-02-19] MEDS: PANTOprazole 40 MG TAB PO SCH (08:09)
[2019-02-19] MEDS: ROSUVASTATIN CALCIUM 20 MG TAB PO SCH (08:09)
[2019-02-19] MEDS: IPRATROPIUM BROMIDE/ALBUTEROL respimat INH INH SCH (08:09)
[2019-02-19] MEDS: FENOFIBRATE NANOCRYSTALLIZED 145 MG TABLET PO SCH (08:09)
[2019-02-19] MEDS: POTASSIUM CHLORIDE 20 MEQ TABCR PO SCH (08:10)
--- NOTE | 2019-02-19 09:37 | Discharge Summary ---
Date of Service February 19, 2019 Admission HPI Per Admitting Provider 79-year-old male with a history of chronic hypoxic respiratory failure on O2, hypertension, TIA and CKD stage III who presented to the emergency department this morning with increased lightheadedness and dizziness. Patient states that the last week he has had lower right-sided abdominal pain. He started a course of Prilosec completed yesterday. Patient states he began with diarrhea 2 days ago. This morning he was having a hard time to stand up without his vision getting blurry and felt very weak and dizzy. Patient states he he did note that the toilet was darker than normal. Denies any bright red blood. Patient blood pressure in the emergency department is 90s over 50s heart rate is high 90s to low 100s. Patient was given 500 cc bolus of normal saline, IV famotidine plus and was typed and screened. Principal Diagnosis GI bleed due to duodenal ulcer Discharge Exam Constitutional WD/WN, vitals as above Eyes PERRL, conjunctivae normal, anicteric sclerae ENMT external ear and nose normal, oropharynx normal Neck trachea midline, no thyromegaly Respiratory normal respiratory effort, lungs clear to auscultation Cardiovascular RRR, no murmur, no edema Gastrointestinal (Abdomen) normal bowel sounds, soft, nontender, no hepatosplenomegaly Musculoskeletal no cyanosis or clubbing, extremities motor strength 5/5 Skin no rashes, warm and dry Neurologic patellar DTR's 2+ bilat, sensation intact and PERRL, EOMI, accommodation nl, no face palsy, no dysarthria Psychiatric A+Ox3, euthymic affect Lymphatic no cervical or axillary lymphadenopathy Discharge Data Allergies Allergy/AdvReac Type Severity Reaction Status Date / Time No Known Allergies Allergy Verified 02/13/19 11:35 Consultations 02/13/19 11:49 ED Decision to Admit Stat 02/13/19 12:17 Consult Gastroenterology Stat Procedures Performed Operation Date: 02/16/19 09:00 Actual Procedures p EGD Biopsy Cytology - Luc Arrieta MD Hospital Course (1) Duodenal ulcer: diagnosed on EGD, not bleeding at the time treated with PPI d/c home on Esomeprazole 40mg BID for two months then once a day indefinitely caused by taking aspirin 325mg and possible NSAID use (2) GI bleed: EGD on 02/16 showed duodenal ulcer, not bleeding, no stigmata of bleeding, stomach showed no gastritis or ulcers continue on Esomeprazole BID x 2 months and then daily per GI reviewed pathology, negative for H pylori advance from full liquid to heart healthy diet, tolerating well Hb low but stable, around 8gm for three days straight his BUN is trending down to 20 which argues against blood in GI tract, no melena for days (3) Acute blood loss anemia: Baseline hemoglobin ~10. Down to 6.1 on admission; s/p 2 units of PRBCs on 02/13. - Hgb dropped to 6.9, transfused additional 2 units no further melena for three days Hb low but stable for three days, around 8gm will place on Ferrous Sulfate BID (4) Chronic kidney disease, stage 3: Baseline Cr ~1.5-1.7. - Cr has been stable, baseline for several days (5) HTN (hypertension): Only on Lasix as potential BP medication. BP is stable - Continue Lasix (6) Chronic respiratory failure with hypoxia, on home O2 therapy: Respiratory status at baseline, on 4L NC, denies any dyspnea - Continue home inhalers. - DuoNebs PRN (7) Hypokalemia: resolved, resume once a day supplementation on discharge (8) CVA (cerebral vascular accident): was previously on aspirin and Plavix for stroke prevention due to GI bleeding will stop Plavix and reduce aspirin to 81mg daily instructed to hold the aspirin for two more weeks to allow ulcer to heal due to bleeding the risk of dual antiplatelet therapy outweighs the benefit (9) DVT prophylaxis: SCDs - Low DVT risk per admission calculator & currently with GI bleed Plan: consult PT/OT, consider downgrade to medical floor later today Total Time Total Time Spent Total Time Spent (In Minutes): 35 minutes Total Time Includes: Examination of the Patient, Discharge Planning and Medication Reconciliation Discharge Plan Discharge Items Patient Disposition: Home - Home Health Services Reason For Visit: GI BLEED Discharge Diagnosis: GI bleed Duodenal ulcer Acute blood loss anemia Condition: Good Discharge Goals: Improve disease control and Improve function Activity: Resume your previous activity Non-emergency contact: Primary Care Provider Call non-emergency contact if: you have any medication questions and your symptoms worsen Follow-up/Referrals: Yisel Pittman MD [Primary Care Provider] - Diet: Heart Healthy Addtl Provider Instructions: Medications: - ESOMEPRAZOLE: 40mg twice a day for 2 months and then you can reduce to once daily - FERROUS SULFATE: over the counter iron supplement, take twice a day for a month and then take daily to help replace red blood cells - ASPIRIN: continue to HOLD this medication for TWO weeks and then resume at just 81mg, DO NOT take 325mg - PLAVIX: stop taking this medication due to bleeding GI bleed due to duodenal ulcer ulcer diagnosed on EGD by Dr Arrieta there was no signs of bleeding and you have not had any melena (dark stools) for several days you were treated with blood transfusions initially, blood counts have responded appropriately, overall stable for three days you are still anemic so you should expect some fatigue and decreased exercise tolerance over the next 2-[address] you on iron supplementation to help build up your red blood cell production will treat ulcer with Esomeprazole 40mg twice a day for TWO months and after that you can reduce to once a day, take rest of your life you cannot take NSAIDs such as ibuprofen or high dose aspirin (325mg) because this can cause further ulcers History of stroke you were taking aspirin and Plavix together for secondary stroke prevention you are now instructed to stop Plavix indefinitely and hold aspirin for two weeks when you do resume aspirin it should be 81mg daily the risk of bleeding outweighs any benefit from using aspirin and Plavix together, so just aspirin is our safest option FOLLOW UP - Dr. Pittman in 7-10 days, my nurse navigator will help arrange appointment Prescriptions: New esomeprazole magnesium 40 mg capsule,delayed release(DR/EC) 40 mg PO BID 30 Days Qty: 60 RF: 2 aspirin 81 mg tablet,delayed release (DR/EC) 81 mg PO DAILY Qty: 30 RF: 0 ferrous sulfate 325 mg (65 mg iron) tablet 325 mg PO BID Qty: 60 RF: 0 Continued fenofibrate nanocrystallized 145 mg tablet 145 mg PO DAILY Qty: 90 RF: 1 fluticasone propion-salmeterol [Advair Diskus] 250-50 mcg/dose blister with device 1 puffs INH BID Qty: 14 RF: 3 potassium chloride 20 mEq tablet extended release 20 meq PO QAM RF: 0 furosemide 80 mg tablet 40 mg PO QAM RF: 0 rosuvastatin 20 mg tablet 20 mg PO QAM RF: 0 Combivent Respimat 20-100 mcg/actuation Mist 1 puff INHALATION QID RF: 0 Discontinued clopidogrel 75 mg tablet 75 mg PO DAILY Qty: 90 RF: 1 aspirin 325 mg tablet 325 mg PO QAM Qty: 30 RF: 0 Prilosec OTC 20 mg Tablet,Delayed Release (Dr/Ec) 20 mg PO QAM RF: 0 Stand-Alone Forms: [facility] Discharge Orders: Discharge Order (Routine); Ordered 02/19/19 Ordered By: Simone Nichols Admission Data Admit Date/Time: 02/13/19 12:17 Attending Provider: Simone Nichols Admit Provider: Elliott Dinh Primary Care Provider: Yisel Pittman Other Providers: Konstantin Beard ; Jorge Yoder ; Ginette Ventura ; Italo Mark Service: Medical Other Interventions: Discharge Summary Assessment (RN) Last Done: 02/16/19 13:10
== END 2019-02-19 13:00 | disposition home health service (06) | DRG 378 ==
LOC: ED 10:19 → SUATTDRO 12:17 → 2E 12:17 → 4W 02-17 14:39

== ENCOUNTER 2020-08-18 14:47 | Inpatient (IN) ==
[2020-08-18] MEDS ORDERED: SODIUM CHLORIDE 0.9% 1000ML 1,000 ML IV ONE (15:31)
[2020-08-18] MEDS ORDERED: IPRATROPIUM BROMIDE/ALBUTEROL respimat INH INH STA (15:36)
[2020-08-18] MEDS ORDERED: guaiFENesin 600 MG TABCR PO STA (15:36)
[2020-08-18] MEDS ORDERED: DEXAMETHASONE SOD INJ 10 MG/ML VIAL IV ONE (15:36)
[2020-08-18 16:03] LABS: Basophils # (auto) 0.02 K/uL (0-0.2); Basophils % (auto) 0.2 %; Eosinophils # (auto) 0.02 K/uL (0-0.5); Eosinophils % (auto) 0.2 %; Hematocrit (blood only) 36.9 % (42-52); Hemoglobin 12.4 g/dL (14.0-18.0); Immature Granulocytes # (auto) 0.02 K/uL (0.00-0.02); Immature Granulocytes % (auto) 0.2 %; Lymphocytes # (auto) 0.96 K/uL (1.2-3.4); Lymphocytes % (auto) 9.9 %; Mean Corpuscular Hemoglobin 31.6 pg (25-34); Mean Corpuscular Hgb Conc 33.6 g/dL (32-36); Mean Corpuscular Volume 93.9 fL (80-100); Monocytes # (auto) 1.23 K/uL (0.11-0.59); Monocytes % (auto) 12.6 %; Neutrophils # (auto) 7.49 K/uL (1.4-6.5); Neutrophils % (auto) 76.9 %; Platelet Count 361 K/uL (130-400); RDW Coefficient of Variation 13.4 % (11.5-14.5); RDW Standard Deviation 46.7 fL (36.4-46.3); Red Blood Count 3.93 M/uL (4.7-6.1); White Blood Count 9.74 K/uL (4.8-10.8)
[2020-08-18 16:08] LABS: Base Excess VBG -6.5 mEq/L; HCO3 VBG 19 mmol/L; PCO2 VBG 37 mmHg (38-50); PO2 VBG 30 mmHg; pH VBG 7.33 (7.36-7.41)
[2020-08-18 16:11] LABS: Oxygen Saturation VBG < 60.0 %
--- NOTE | 2020-08-18 16:20 | XRay Report ---
XR chest 1V portable CLINICAL HISTORY: Atypical chest pain COMPARISON STUDY: 02/13/2019 FINDINGS: The heart remains enlarged. There is no overt failure. There are peripheral interstitial op acities, similar to the prior study. There is no acute parenchymal consolidation. There are no signif icant pleural effusions.[ IMPRESSION: No significant change from the preceding study. Chronic peripheral interstitial opacities remain stable. ACT 112: Negative or not required by law. Electronically signed by: Baron Berkowitz M.D. 08/18/2020 4:18 PM
[2020-08-18 16:43] LABS: Albumin Globulin Ratio 0.7 (0.9-2); Albumin Level 3.4 gm/dl (3.4-5.0); BUN Creatinine Ratio 25.6 (10-20); Bilirubin Direct 0.3 mg/dl (0-0.2); Calcium 9.6 mg/dl (8.5-10.1); Est GFR (African American) 11.8; Est GFR (Non-African American) 10.2; Globulin 4.9 gm/dl (2.5-4.0); Magnesium 1.9 mg/dl (1.8-2.4); Potassium 5.7 mmol/L (3.5-5.1); Total Protein 8.3 gm/dl (6.4-8.2); Troponin I 0.063 ng/ml (0-0.045)
--- NOTE | 2020-08-18 17:01 | Emergency Department Note ---
Impression & Plan Acute on chronic renal failure, Syncope, Near syncope, Hyponatremia, Elevated troponin, Chronic respiratory failure with hypoxia, on home O2 therapy ED Provider Note NAME: DHARMESH TENA AGE: 80 SEX: M ARRIVES VIA: Ambulance INFORMANT: Patient, ED PROVIDER(S): Gerry Llanes MD CHIEF COMPLAINT: Cough, congestion, dizziness, syncope PLAN: Disposition: Admit MEDICAL DECISION MAKING: The patient is a pleasant 80-year-old gentleman with a past medical history of pulmonary fibrosis on chronic oxygen (4L), COPD, hypertension, CKD who presents emergency department with worsening cough, congestion, diarrhea body aches with near syncopal and syncopal episodes over the past couple of days. He feels he may have hit his head today on the refrigerator but did not lose consciousness. He denies any known COVID-19 exposures. He denies nausea and vomiting. On arrival the patient is uncomfortable and ill-appearing but no acute distress, afebrile with stable vital signs. He appears clinically dry. He has scant intermittent wheeze and is diminished at the bases. WBC and platelets within normal limits. H/H 12.4/36.9 proximal to prior values. VBG with pH of 7.33 and PCO2 of 37, unremarkable. Chemistry with no significant metabolic acidosis. Creatinine is acutely worse with a creatinine of 4.9 up from 1.9 in November. BUN/creatinine> 20 with BUN of 127 suggestive of prerenal etiology. Potassium is 5.7 but without concerning EKG changes. LFTs without significant abnormality. Troponin 0.063 likely related to demand in the setting of the patient's acute on chronic renal failure. BNP 2100, nonspecific in the setting of his acute on chronic renal failure. Lipase elevated 900, nonspecific. CT of the head negative for acute process. CT the abdomen pelvis negative for acute intra-abdominal process. Mild right collecting system dilatation is nonspecific no calculi are identified. UA negative for infection. COVID-19 PCR negative. Influenza and RSV PCR negative. Upon reevaluation patient did feel improved after IV fluid hydration, guaifenesin, dexamethasone and Combivent MDI. Retana catheter was placed given acute on chronic renal failure to monitor I's and O's. Given the patient's acute on chronic renal failure which may be related to dehydration in the setting of report of diarrhea reasonable admit the patient for further management. Patient agrees with this. Case was discussed with Dr. Crowe, [facility] [place], who will evaluate the patient for admission. Triage Nursing notes reviewed and agree them. Prior medical records reviewed Vital Signs: reviewed and remarkable for no significant abnormalities Differential diagnosis: Vasovagal event, dehydration, infection, hypoglycemia, electrolyte abnormalities, cardiac sources, intracerebral event, pulmonary embolism, seizure, toxicologic, neurologic, as well as other pathologies. ER treatment provided: See below. Diagnostics interpreted by me: ECG: Significant artifact. Normal sinus rhythm, 60 bpm, no ectopy, no overt ST elevation or depression. Cardiac Monitoring: An order for continuous cardiac monitoring was placed and demonstrated Normal sinus rhythm, 60 bpm, no ectopy. Laboratory studies: See below Imaging studies: XR chest 1V portable CLINICAL HISTORY: Atypical chest pain COMPARISON STUDY: 02/13/2019 FINDINGS: The heart remains enlarged. There is no overt failure. There are peripheral interstitial opacities, similar to the prior study. There is no acute parenchymal consolidation. There are no significant pleural effusions.[ IMPRESSION: No significant change from the preceding study. Chronic peripheral interstitial opacities remain stable. ACT 112: Negative or not required by law. CT OF THE HEAD WITHOUT CONTRAST CLINICAL HISTORY: syncope, head strike COMPARISON STUDY: Head CT January 21, 2019. TECHNIQUE: Helical axial images of the head were obtained without IV contrast. Automated exposure control was utilized for the study. A dose lowering technique was utilized adhering to the principles of ALARA. FINDINGS: No acute intracranial hemorrhage, midline shift or mass effect is present. The ventricular system is unremarkable. The basal cisterns are patent. No extra-axial collections are present. There are no findings to suggest acute dural sinus thrombosis or acute territorial infarct. No significant calvarial abnormalities are present. Visualized portions of the sinuses and mastoid air cells are clear. IMPRESSION: 1. No acute intracranial findings. 2. No calvarial fracture. ACT 112: Negative or not required by law. Electronically signed by: Roodlfo Ballesteros M.D. 08/18/2020 5:[address] OF THE ABDOMEN AND PELVIS WITHOUT CONTRAST CLINICAL HISTORY: Abdominal pain and diarrhea. Acute kidney injury. COMPARISON STUDY: CT of the abdomen and pelvis January 15, 2019. TECHNIQUE: Axial images of the abdomen and pelvis were obtained without IV contrast. Images were reviewed in the axial, sagittal, and coronal planes. Automated exposure control was utilized for the study. A dose lowering technique was utilized adhering to the principles of ALARA. FINDINGS: The heart is mildly enlarged. A small hiatal hernia is noted. Evidence for interstitial lung disease is noted within visualized portions of the lower lungs. No pneumatosis, free air or portal venous gas is present. Evaluation of the abdomen and pelvis is suboptimal on this unenhanced exam. The liver, spleen, adrenal glands and pancreas are unremarkable. There are gallstones within the gallbladder. There is no biliary or pancreatic ductal dilatation. There is no evidence for a bowel obstruction. No bowel wall thickening is identified on this unenhanced exam. Water attenuation left renal lesion is suboptimally assessed on this unenhanced exam but favors a cyst. No urinary calculi are identified. There is mild right collecting system dilatation. A water attenuation focus within the left renal sinus could reflect a chronically dilated renal pelvis or parapelvic cyst. This is unchanged. A Retana balloon is present within the bladder. No acute fracture or suspicious lesion is identified within visualized skeletal structures. There is no ascites or lymphadenopathy. IMPRESSION: 1. No bowel obstruction. No bowel wall thickening on unenhanced exam. 2. No urinary calculi. Mild right collecting system dilatation. Water attenuation focus within the left renal sinus which is unchanged since prior CT. This could reflect a mild UPJ type obstruction or parapelvic cyst. 3. Evidence for interstitial lung disease within the lower lungs. ACT 112: Negative or not required by law. Electronically signed by: Rodolfo Ballesteros M.D. 08/18/2020 6:14 PM Dictated: 08/18/201801 Transcribed: 08/18/201801 Consultation(s): Case was discussed with Dr. Crowe, [facility] hospitalist, who will evaluate the patient for admission. HPI: The patient is a pleasant 80-year-old gentleman with a past medical history of pulmonary fibrosis on chronic oxygen (4L), COPD, hypertension, CKD who presents emergency department with worsening cough, congestion, diarrhea body aches with near syncopal and syncopal episodes over the past couple of days. He feels he may have hit his head today on the refrigerator but did not lose consciousness. He denies any known COVID-19 exposures. He denies nausea and vomiting. ROS: See above HPI for pertinent positives & negatives. A total of 10 systems reviewed and were otherwise negative. PAST MEDICAL HISTORY:See Below PAST SURGICAL HISTORY:See Below FAMILY HISTORY:See Below SOCIAL HISTORY:See Below HOME MEDICATIONS:See Below ALLERGIES:See Below VITALS:See Below PHYSICAL EXAMINATION: GENERAL: Awake, alert, fatigued/uncomfortable-appearing, in no distress HENT: Normocephalic, atraumatic. Oropharynx with dry mucous membranes and otherwise unremarkable. EYES: Normal conjunctiva. Sclera non-icteric. NECK: Supple. No nuchal rigidity. FROM. No JVD. RESPIRATORY: Scant intermittent wheeze and is diminished at the bases. CARDIAC: Regular rate, normal rhythm. Extremities warm and well perfused. Pulses equal. ABDOMEN: Soft, non-distended. No tenderness to palpation. No rebound or guarding. No masses. RECTAL: Deferred. MUSCULOSKELETAL: Chest examination reveals no tenderness. The back is symmetrical on inspection without obvious abnormality. There is no CVA t enderness to palpation. No joint edema. LOWER EXTREMITIES: Calves are equal size bilaterally and non-tender. No edema. No discoloration. NEURO: Normal sensorium. No sensory or motor deficits noted. SKIN: No rash or jaundice noted. ED COURSE: Critical Care: I have personally spent greater than 35 minutes of critical care time in the direct management of this patient. This includes bedside care, interpretation of diagnostic studies, and testing, discussion with consultants, patient, and family members, and other required patient management activities. This 35 minutes is in excess of all separately billable procedures. Gerry Llanes MD Past Med/Surg History Medical History (Updated 08/18/20 @ 21:31 by Gerry Llanes MD) XOCHITL (acute kidney injury) Allergic rhinitis Carotid bruit present Chronic kidney disease, stage 3 Chronic venous insufficiency COPD (chronic obstructive pulmonary disease) CVA (cerebral vascular accident) Dysphagia HTN (hypertension) 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 Pulmonary fibrosis Sinus bradycardia Surgical History History of umbilical hernia repair Family History Father Stroke Cancer Mother Hypertension Social History Smoking Status: Never smoker Second Hand Exposure: No; Hx Alcohol Use: Yes Alcohol type: wine Hx Substance Use: No Preferred Language: Honduran Communication Ability: Effective Visual Impairment: No Limitations Hearing Ability: Normal Sourcer Required: No Beliefs That Will Affect Care: None Current Living Situation: Alone Current Living Situation Comment: friends live close by and check on pt frequently current occupational status: retired Feels Safe at Home: Yes Childhood Exposure to Second-Hand Smoke: Yes Dental Care, Regularly: Yes Physical Activity Frequency: Does not Exercise Seatbelt Use: always Sunscreen Use: Yes Assistive Devices: Glasses and Oxygen - Continuous Allergies Allergies Allergy/AdvReac Type Severity Reaction Status Date / Time No Known Allergies Allergy Verified 08/18/20 18:40 Home Meds Previous Rx's Medication Instructions Recorded aspirin 81 mg PO DAILY #30 tab 02/19/19 ferrous sulfate 325 mg PO BID #60 tab 02/19/19 furosemide 80 mg tablet 40 mg PO DAILY #45 tab 12/29/19 potassium chloride 20 mEq 20 meq PO QAM #90 tab 01/28/20 tablet,extended release pantoprazole 40 mg tablet,delayed 40 mg PO BID #180 tab 02/04/20 release ipratropium 20 mcg-albuterol 100 1 puff INHALATION QID #12 g 02/11/20 mcg/actuation mist for inhalation fluticasone 250 mcg-salmeterol 50 1 inh INH BID #180 ea 03/18/20 mcg/dose blistr powdr for inhalation rosuvastatin 20 mg tablet 20 mg PO DAILY #90 tab 03/30/20 amlodipine 5 mg tablet 5 mg PO DAILY #90 tab 04/21/20 atenolol 25 mg tablet 12.5 mg PO DAILY #45 tab 04/21/20 spironolactone 100 mg tablet 100 mg PO DAILY #90 tab 04/21/20 fenofibrate nanocrystallized 145 145 mg PO DAILY #90 tab 07/06/20 mg tablet clopidogrel 75 mg tablet 75 mg PO DAILY #90 tab 07/15/20 docusate sodium 100 mg capsule 100 mg PO BID #180 cap 07/15/20 hydrocodone 5 mg-acetaminophen 325 1 tab PO TID PRN #30 tab 08/18/20 mg tablet Results & Data (ED) Vital Signs Vital Signs - 24 hr 08/18/20 14:55 08/18/20 15:00 08/18/20 15:13 Temperature 37.2 C Temperature Source Oral Pulse Rate 83 106 H 101 H Pulse Rate from SpO2 Sensor 59 L 56 L Respiratory Rate 20 30 H 34 H Respiratory Effort / Characteristics Non-Labored Spontaneous Blood Pressure 124/61 111/46 L Blood Pressure Mean 82 67 Pulse Oximetry 96 95 93 Oxygen Delivery Method Nasal Cannula Oxygen Flow Rate 4 Sepsis Recent Fever Within 48 Hours No Sepsis New/Unexplained Change in Mental Status No Sepsis Action Taken by Nursing No Action Required 08/18/20 15:20 08/18/20 15:21 08/18/20 15:30 Temperature Temperature Source Pulse Rate 110 H Pulse Rate from SpO2 Sensor 54 L 55 L Respiratory Rate 31 H 22 Respiratory Effort / Characteristics Blood Pressure 118/49 L Blood Pressure Mean 72 Pulse Oximetry 95 100 Oxygen Delivery Method Nasal Cannula Oxygen Flow Rate 4 Sepsis Recent Fever Within 48 Hours Sepsis New/Unexplained Change in Mental Status Sepsis Action Taken by Nursing 08/18/20 15:31 08/18/20 15:32 08/18/20 15:40 Temperature Temperature Source Pulse Rate 115 H 109 H Pulse Rate from SpO2 Sensor 55 L 54 L Respiratory Rate 21 20 Respiratory Effort / Characteristics Blood Pressure Blood Pressure Mean Pulse Oximetry 100 98 100 Oxygen Delivery Method Nasal Cannula Oxygen Flow Rate 4 Sepsis Recent Fever Within 48 Hours Sepsis New/Unexplained Change in Mental Status Sepsis Action Taken by Nursing 08/18/20 15:50 08/18/20 16:00 08/18/20 16:10 Temperature Temperature Source Pulse Rate 174 H 69 Pulse Rate from SpO2 Sensor Respiratory Rate 22 28 H 17 Respiratory Effort / Characteristics Blood Pressure Blood Pressure Mean Pulse Oximetry Oxygen Delivery Method Oxygen Flow Rate Sepsis Recent Fever Within 48 Hours Sepsis New/Unexplained Change in Mental Status Sepsis Action Taken by Nursing 08/18/20 16:20 08/18/20 16:30 08/18/20 16:40 Temperature Temperature Source Pulse Rate Pulse Rate from SpO2 Sensor 51 L 52 L Respiratory Rate 24 22 23 Respiratory Effort / Characteristics Blood Pressure Blood Pressure Mean Pulse Oximetry 98 90 Oxygen Delivery Method Oxygen Flow Rate Sepsis Recent Fever Within 48 Hours Sepsis New/Unexplained Change in Mental Status Sepsis Action Taken by Nursing 08/18/20 16:50 08/18/20 17:00 08/18/20 17:01 Temperature Temperature Source Pulse Rate Pulse Rate from SpO2 Sensor 52 L 53 L 51 L Respiratory Rate 23 21 23 Respiratory Effort / Characteristics Blood Pressure 113/46 L Blood Pressure Mean 68 Pulse Oximetry 100 99 100 Oxygen Delivery Method Oxygen Flow Rate Sepsis Recent Fever Within 48 Hours Sepsis New/Unexplained Change in Mental Status Sepsis Action Taken by Nursing 08/18/20 17:10 08/18/20 17:20 08/18/20 17:30 Temperature Temperature Source Pulse Rate Pulse Rate from SpO2 Sensor 59 L 57 L 56 L Respiratory Rate 21 27 H 21 Respiratory Effort / Characteristics Blood Pressure Blood Pressure Mean Pulse Oximetry 100 100 100 Oxygen Delivery Method Oxygen Flow Rate Sepsis Recent Fever Within 48 Hours Sepsis New/Unexplained Change in Mental Status Sepsis Action Taken by Nursing 08/18/20 17:51 08/18/20 18:00 08/18/20 18:01 Temperature Temperature Source Pulse Rate Pulse Rate from SpO2 Sensor 52 L 53 L 50 L Respiratory Rate 16 23 23 Respiratory Effort / Characteristics Blood Pressure 108/48 L Blood Pressure Mean 68 Pulse Oximetry 100 100 100 Oxygen Delivery Method Oxygen Flow Rate Sepsis Recent Fever Within 48 Hours Sepsis New/Unexplained Change in Mental Status Sepsis Action Taken by Nursing 08/18/20 18:10 08/18/20 18:20 08/18/20 18:30 Temperature Temperature Source Pulse Rate 64 Pulse Rate from SpO2 Sensor 52 L 52 L 52 L Respiratory Rate 21 26 H 25 H Respiratory Effort / Characteristics Blood Pressure 109/42 L Blood Pressure Mean 64 Pulse Oximetry 100 100 100 Oxygen Delivery Method Nasal Cannula Oxygen Flow Rate 4 Sepsis Recent Fever Within 48 Hours Sepsis New/Unexplained Change in Mental Status Sepsis Action Taken by Nursing 08/18/20 18:31 08/18/20 18:40 08/18/20 18:50 Temperature Temperature Source Pulse Rate Pulse Rate from SpO2 Sensor 53 L 53 L 56 L Respiratory Rate 21 22 20 Respiratory Effort / Characteristics Blood Pressure Blood Pressure Mean Pulse Oximetry 100 100 100 Oxygen Delivery Method Oxygen Flow Rate Sepsis Recent Fever Within 48 Hours Sepsis New/Unexplained Change in Mental Status Sepsis Action Taken by Nursing 08/18/20 19:00 08/18/20 19:10 08/18/20 19:12 Temperature Temperature Source Pulse Rate Pulse Rate from SpO2 Sensor 54 L 59 L 56 L Respiratory Rate 18 20 23 Respiratory Effort / Characteristics Blood Pressure 107/52 L Blood Pressure Mean 70 Pulse Oximetry 100 99 100 Oxygen Delivery Method Oxygen Flow Rate Sepsis Recent Fever Within 48 Hours Sepsis New/Unexplained Change in Mental Status Sepsis Action Taken by Nursing 08/18/20 19:20 08/18/20 19:30 08/18/20 19:31 Temperature Temperature Source Pulse Rate Pulse Rate from SpO2 Sensor 54 L 53 L 53 L Respiratory Rate 18 19 22 Respiratory Effort / Characteristics Blood Pressure 113/52 L Blood Pressure Mean 72 Pulse Oximetry 100 100 100 Oxygen Delivery Method Oxygen Flow Rate Sepsis Recent Fever Within 48 Hours Sepsis New/Unexplained Change in Mental Status Sepsis Action Taken by Nursing 08/18/20 19:40 08/18/20 19:50 08/18/20 20:00 Temperature Temperature Source Pulse Rate Pulse Rate from SpO2 Sensor 51 L 55 L 48 L Respiratory Rate 21 21 21 Respiratory Effort / Characteristics Blood Pressure 108/42 L Blood Pressure Mean 64 Pulse Oximetry 100 100 100 Oxygen Delivery Method Oxygen Flow Rate Sepsis Recent Fever Within 48 Hours Sepsis New/Unexplained Change in Mental Status Sepsis Action Taken by Nursing 08/18/20 20:01 08/18/20 20:10 08/18/20 20:20 Temperature Temperature Source Pulse Rate Pulse Rate from SpO2 Sensor 50 L 49 L 49 L Respiratory Rate 22 21 20 Respiratory Effort / Characteristics Blood Pressure Blood Pressure Mean Pulse Oximetry 100 100 100 Oxygen Delivery Method Oxygen Flow Rate Sepsis Recent Fever Within 48 Hours Sepsis New/Unexplained Change in Mental Status Sepsis Action Taken by Nursing 08/18/20 20:30 08/18/20 20:31 08/18/20 20:40 Temperature Temperature Source Pulse Rate Pulse Rate from SpO2 Sensor 49 L 49 L 49 L Respiratory Rate 21 20 20 Respiratory Effort / Characteristics Blood Pressure 99/41 L Blood Pressure Mean 60 Pulse Oximetry 100 100 100 Oxygen Delivery Method Oxygen Flow Rate Sepsis Recent Fever Within 48 Hours Sepsis New/Unexplained Change in Mental Status Sepsis Action Taken by Nursing Laboratory Data Attestation: I reviewed the patient's lab results. Result diagrams: 08/18/20 15:41 08/18/20 15:41 Lab Results 08/18/20 08/18/20 08/18/20 Range/Units 15:41 15:41 15:41 WBC 9.74 (4.8-10.8) K/uL RBC 3.93 L (4.7-6.1) M/uL Hgb 12.4 L (14.0-18.0) g/dL Hct 36.9 L (42-52) % MCV 93.9 (80-100) fL MCH 31.6 (25-34) pg MCHC 33.6 (32-36) g/dL RDW Std Deviation 46.7 H (36.4-46.3) fL RDW Coeff of Brandon 13.4 (11.5-14.5) % Plt Count 361 (130-400) K/uL MPV 12.0 H (7.4-10.4) fL Immature Gran % (Auto) 0.2 % Neut % (Auto) 76.9 % Lymph % (Auto) 9.9 % [place] % (Auto) 12.6 % Eos % (Auto) 0.2 % Baso % (Auto) 0.2 % Neut # (Auto) 7.49 H (1.4-6.5) K/uL Lymph # (Auto) 0.96 L (1.2-3.4) K/uL [place] # (Auto) 1.23 H (0.11-0.59) K/uL Eos # (Auto) 0.02 (0-0.5) K/uL Baso # (Auto) 0.02 (0-0.2) K/uL Immature Gran # (Auto) 0.02 (0.00-0.02) K/uL VBG pH 7.33 L (7.36-7.41) VBG pCO2 37 L (38-50) mmHg VBG pO2 30 mmHg VBG HCO3 19 mmol/L VBG O2 Saturation < 60.0 % VBG Base Excess -6.5 mEq/L Barometric Pressure 737.6 mm/Hg Sodium 129 L (136-145) mmol/L Potassium 5.7 H (3.5-5.1) mmol/L Chloride 98 (98-107) mmol/L Carbon Dioxide 19 L (21-32) mmol/L Anion Gap 13.0 H (3-11) BUN 127 H (7-18) mg/dl Creatinine 4.94 H* (0.6-1.4) mg/dl Est Cr Clr Drug Dosing 11.0 ml/min Est GFR ( Amer) 11.8 Est GFR (Non-Af Amer) 10.2 BUN/Creatinine Ratio 25.6 H (10-20) Glucose 104 H (70-99) mg/dl Calcium 9.6 (8.5-10.1) mg/dl Phosphorus 5.0 H (2.5-4.9) mg/dl Magnesium 1.9 (1.8-2.4) mg/dl Total Bilirubin 1.0 (0.2-1) mg/dl Direct Bilirubin 0.3 H (0-0.2) mg/dl AST 44 H (15-37) U/L ALT 25 (12-78) U/L Alkaline Phosphatase 42 L (45-117) U/L Troponin I 0.063 H* (0-0.045) ng/ml NT-Pro-B Natriuret Pep 2107 H (0-1800) pg/ml Total Protein 8.3 H (6.4-8.2) gm/dl Albumin 3.4 (3.4-5.0) gm/dl Globulin 4.9 H (2.5-4.0) gm/dl Albumin/Globulin Ratio 0.7 L (0.9-2) Lipase 912 H (73-393) U/L Procalcitonin (0-0.5) ng/ml Urine Color Urine Appearance (Clear) Urine pH (4.5-7.5) Ur Specific [place] (1.000-1.030) Urine Protein (Negative) Urine Glucose (UA) (Negative) Urine Ketones (Negative) Urine Blood (Negative) Urine Nitrite (Negative) Urine Bilirubin (Negative) Urine Urobilinogen (Negative) Ur Leukocyte Esterase (Negative) COVID-19 Eval Order SARS-CoV-2 (PCR) (Negative) Influenza Type A (PCR) (Neg) Influenza Type B (PCR) (Neg) RSV (RT-PCR) (Neg) 08/18/20 08/18/20 08/18/20 Range/Units 16:00 16:00 17:25 WBC (4.8-10.8) K/uL RBC (4.7-6.1) M/uL Hgb (14.0-18.0) g/dL Hct (42-52) % MCV (80-100) fL MCH (25-34) pg MCHC (32-36) g/dL RDW Std Deviation (36.4-46.3) fL RDW Coeff of Brandon (11.5-14.5) % Plt Count (130-400) K/uL MPV (7.4-10.4) fL Immature Gran % (Auto) % Neut % (Auto) % Lymph % (Auto) % [place] % (Auto) % Eos % (Auto) % Baso % (Auto) % Neut # (Auto) (1.4-6.5) K/uL Lymph # (Auto) (1.2-3.4) K/uL [place] # (Auto) (0.11-0.59) K/uL Eos # (Auto) (0-0.5) K/uL Baso # (Auto) (0-0.2) K/uL Immature Gran # (Auto) (0.00-0.02) K/uL VBG pH (7.36-7.41) VBG pCO2 (38-50) mmHg VBG pO2 mmHg VBG HCO3 mmol/L VBG O2 Saturation % VBG Base Excess mEq/L Barometric Pressure mm/Hg Sodium (136-145) mmol/L Potassium (3.5-5.1) mmol/L Chloride (98-107) mmol/L Carbon Dioxide (21-32) mmol/L Anion Gap (3-11) BUN (7-18) mg/dl Creatinine (0.6-1.4) mg/dl Est Cr Clr Drug Dosing ml/min Est GFR ( Amer) Est GFR (Non-Af Amer) BUN/Creatinine Ratio (10-20) Glucose (70-99) mg/dl Calcium (8.5-10.1) mg/dl Phosphorus (2.5-4.9) mg/dl Magnesium (1.8-2.4) mg/dl Total Bilirubin (0.2-1) mg/dl Direct Bilirubin (0-0.2) mg/dl AST (15-37) U/L ALT (12-78) U/L Alkaline Phosphatase (45-117) U/L Troponin I (0-0.045) ng/ml NT-Pro-B Natriuret Pep (0-1800) pg/ml Total Protein (6.4-8.2) gm/dl Albumin (3.4-5.0) gm/dl Globulin (2.5-4.0) gm/dl Albumin/Globulin Ratio (0.9-2) Lipase (73-393) U/L Procalcitonin (0-0.5) ng/ml Urine Color Yellow Urine Appearance Clear (Clear) Urine pH 5.0 (4.5-7.5) Ur Specific [place] 1.015 (1.000-1.030) Urine Protein Negative (Negative) Urine Glucose (UA) Negative (Negative) Urine Ketones Negative (Negative) Urine Blood Negative (Negative) Urine Nitrite Negative (Negative) Urine Bilirubin Negative (Negative) Urine Urobilinogen Negative (Negative) Ur Leukocyte Esterase Negative (Negative) COVID-19 Eval Order CovFluRsv at [facility] [place] SARS-CoV-2 (PCR) NEGATIVE (Negative) Influenza Type A (PCR) Negative (Neg) Influenza Type B (PCR) Negative (Neg) RSV (RT-PCR) Negative (Neg) 08/18/20 Range/Units 19:51 WBC (4.8-10.8) K/uL RBC (4.7-6.1) M/uL Hgb (14.0-18.0) g/dL Hct (42-52) % MCV (80-100) fL MCH (25-34) pg MCHC (32-36) g/dL RDW Std Deviation (36.4-46.3) fL RDW Coeff of Brandon (11.5-14.5) % Plt Count (130-400) K/uL MPV (7.4-10.4) fL Immature Gran % (Auto) % Neut % (Auto) % Lymph % (Auto) % [place] % (Auto) % Eos % (Auto) % Baso % (Auto) % Neut # (Auto) (1.4-6.5) K/uL Lymph # (Auto) (1.2-3.4) K/uL [place] # (Auto) (0.11-0.59) K/uL Eos # (Auto) (0-0.5) K/uL Baso # (Auto) (0-0.2) K/uL Immature Gran # (Auto) (0.00-0.02) K/uL VBG pH (7.36-7.41) VBG pCO2 (38-50) mmHg VBG pO2 mmHg VBG HCO3 mmol/L VBG O2 Saturation % VBG Base Excess mEq/L Barometric Pressure mm/Hg Sodium (136-145) mmol/L Potassium (3.5-5.1) mmol/L Chloride (98-107) mmol/L Carbon Dioxide (21-32) mmol/L Anion Gap (3-11) BUN (7-18) mg/dl Creatinine (0.6-1.4) mg/dl Est Cr Clr Drug Dosing ml/min Est GFR ( Amer) Est GFR (Non-Af Amer) BUN/Creatinine Ratio (10-20) Glucose (70-99) mg/dl Calcium (8.5-10.1) mg/dl Phosphorus (2.5-4.9) mg/dl Magnesium (1.8-2.4) mg/dl Total Bilirubin (0.2-1) mg/dl Direct Bilirubin (0-0.2) mg/dl AST (15-37) U/L ALT (12-78) U/L Alkaline Phosphatase (45-117) U/L Troponin I (0-0.045) ng/ml NT-Pro-B Natriuret Pep (0-1800) pg/ml Total Protein (6.4-8.2) gm/dl Albumin (3.4-5.0) gm/dl Globulin (2.5-4.0) gm/dl Albumin/Globulin Ratio (0.9-2) Lipase (73-393) U/L Procalcitonin 0.24 (0-0.5) ng/ml Urine Color Urine Appearance (Clear) Urine pH (4.5-7.5) Ur Specific [place] (1.000-1.030) Urine Protein (Negative) Urine Glucose (UA) (Negative) Urine Ketones (Negative) Urine Blood (Negative) Urine Nitrite (Negative) Urine Bilirubin (Negative) Urine Urobilinogen (Negative) Ur Leukocyte Esterase (Negative) COVID-19 Eval Order SARS-CoV-2 (PCR) (Negative) Influenza Type A (PCR) (Neg) Influenza Type B (PCR) (Neg) RSV (RT-PCR) (Neg) Administered Medications Sodium Chloride (Nss) 500 mls @ 125 mls/hr IV .Q4H [facility] Stop: 09/17/20 18:44 Last Admin: 08/18/20 18:55 Dose: 125 mls/hr Documented by: [id number] Discontinued Medications Albuterol (Ipratropium [place]/Albuterol Respimat Inh) 2 puffs INH NOW STA Stop: 08/18/20 15:37 Last Admin: 08/18/20 15:50 Dose: 2 puffs Documented by: [id number] Dexamethasone (Dexamethasone Sod Inj 10 Mg/Ml Vial) 10 mg IV NOW ONE Stop: 08/18/20 15:37 Last Admin: 08/18/20 15:51 Dose: 10 mg Documented by: [id number] Guaifenesin (Guaifenesin 600 Mg Tabcr) 600 mg PO NOW STA Stop: 08/18/20 15:37 Last Admin: 08/18/20 15:50 Dose: 600 mg Documented by: [id number] Sodium Chloride (Nss 1000ml) 1,000 mls @ 999 mls/hr IV .Q1H1M ONE Stop: 08/18/20 16:31 Last Infusion: 08/18/20 17:32 Dose: 0 mls/hr Documented by: [id number] Admin: 08/18/20 15:56 Dose: 999 mls/hr Documented by: [id number] Discharge Plan Visit Data Chief Complaint: Shortness of Breath/Dyspnea ED Provider: Gerry Llanes Discharge Problem: Acute on chronic renal failure, Syncope, Near syncope, Hyponatremia, Elevated troponin, Chronic respiratory failure with hypoxia, on home O2 therapy Forms Stand Alone Forms: [facility] [employer] Prescriptions Prescriptions: No Action furosemide 80 mg tablet 40 mg PO DAILY Qty: 45 RF: 1 potassium chloride 20 mEq tablet extended release 20 meq PO QAM Qty: 90 RF: 1 pantoprazole 40 mg tablet,delayed release (DR/EC) 40 mg PO BID Qty: 180 RF: 1 Combivent Respimat 20-100 mcg/actuation mist 1 puff INHALATION QID Qty: 12 RF: 1 fluticasone propion-salmeterol [Advair Diskus] 250-50 mcg/dose blister with device 1 inh INH BID Qty: 180 RF: 1 rosuvastatin 20 mg tablet 20 mg PO DAILY Qty: 90 RF: 1 amlodipine 5 mg tablet 5 mg PO DAILY Qty: 90 RF: 3 atenolol 25 mg tablet 12.5 mg PO DAILY Qty: 45 RF: 1 spironolactone 100 mg tablet 100 mg PO DAILY Qty: 90 RF: 1 fenofibrate nanocrystallized 145 mg tablet 145 mg PO DAILY Qty: 90 RF: 1 clopidogrel 75 mg tablet 75 mg PO DAILY Qty: 90 RF: 1 docusate sodium [Colace] 100 mg capsule 100 mg PO BID Qty: 180 RF: 1 hydrocodone-acetaminophen 5-325 mg tablet 1 tab PO TID PRN (Reason: pain) Qty: 30 RF: 0 aspirin 81 mg tablet,delayed release (DR/EC) 81 mg PO DAILY Qty: 30 RF: 0 ferrous sulfate 325 mg (65 mg iron) tablet 325 mg PO BID Qty: 60 RF: 0 Discharge Problem: Acute on chronic renal failure Qualifiers: Acute renal failure type: unspecified Chronic kidney disease stage: unspecified stage Qualified Code(s): N17.9 - Acute kidney failure, unspecified Syncope Qualifiers: Syncope type: unspecified Qualified Code(s): R55 - Syncope and collapse
[2020-08-18 17:08] LABS: Influenza A virus by PCR Negative (Neg); Influenza B virus by PCR Negative (Neg); RSV by PCR Negative (Neg); SARS CoV2 RNA(COVID-19) InHosp NEGATIVE (Negative)
[2020-08-18 17:41] LABS: Appearance Urine Clear (Clear); Bilirubin Urine Negative (Negative); Blood Urine Negative (Negative); Color Urine Yellow; Glucose Urine UA Negative (Negative); Ketones Urine Negative (Negative); Leukocyte Esterase Urine Negative (Negative); Nitrite Urine Negative (Negative); Protein Urine Negative (Negative); Specific Gravity Urine 1.015 (1.000-1.030); Urobilinogen Urine Negative (Negative)
--- NOTE | 2020-08-18 18:01 | CT Scan Report ---
CT OF THE HEAD WITHOUT CONTRAST CLINICAL HISTORY: syncope, head strike COMPARISON STUDY: Head CT January 21, 2019. TECHNIQUE: Helical axial images of the head were obtained without IV contrast. Automated exposure con trol was utilized for the study. A dose lowering technique was utilized adhering to the principles o f ALARA. FINDINGS: No acute intracranial hemorrhage, midline shift or mass effect is present. The ventricular system is unremarkable. The basal cisterns are patent. No extra-axial collections are present. There are no findings to suggest acute dural sinus thrombosis or acute territorial infarct. No significant calvarial abnormalities are present. Visualized portions of the sinuses and mastoid air cells are sven ar. IMPRESSION: 1. No acute intracranial findings. 2. No calvarial fracture. ACT 112: Negative or not required by law. Electronically signed by: Rodolfo Ballesteros M.D. 08/18/2020 5:59 PM
--- NOTE | 2020-08-18 18:15 | CT Scan Report ---
CT OF THE ABDOMEN AND PELVIS WITHOUT CONTRAST CLINICAL HISTORY: Abdominal pain and diarrhea. Acute kidney injury. COMPARISON STUDY: CT of the abdomen and pelvis January 15, 2019. TECHNIQUE: Axial images of the abdomen and pelvis were obtained without IV contrast. Images were revi ewed in the axial, sagittal, and coronal planes. Automated exposure control was utilized for the baltazar dy. A dose lowering technique was utilized adhering to the principles of ALARA. FINDINGS: The heart is mildly enlarged. A small hiatal hernia is noted. Evidence for interstitial mario g disease is noted within visualized portions of the lower lungs. No pneumatosis, free air or portal venous gas is present. Evaluation of the abdomen and pelvis is suboptimal on this unenhanced exam. Th e liver, spleen, adrenal glands and pancreas are unremarkable. There are gallstones within the gallbl adder. There is no biliary or pancreatic ductal dilatation. There is no evidence for a bowel obstruct ion. No bowel wall thickening is identified on this unenhanced exam. Water attenuation left renal les ion is suboptimally assessed on this unenhanced exam but favors a cyst. No urinary calculi are identi fied. There is mild right collecting system dilatation. A water attenuation focus within the left indira al sinus could reflect a chronically dilated renal pelvis or parapelvic cyst. This is unchanged. A Fo abdulaziz balloon is present within the bladder. No acute fracture or suspicious lesion is identified withi n visualized skeletal structures. There is no ascites or lymphadenopathy. IMPRESSION: 1. No bowel obstruction. No bowel wall thickening on unenhanced exam. 2. No urinary calculi. Mild right collecting system dilatation. Water attenuation focus within the le ft renal sinus which is unchanged since prior CT. This could reflect a mild UPJ type obstruction or p arapelvic cyst. 3. Evidence for interstitial lung disease within the lower lungs. ACT 112: Negative or not required by law. Electronically signed by: Rodolfo Ballesteros M.D. 08/18/2020 6:14 PM
[2020-08-18] MEDS: SODIUM CHLORIDE 0.9% 500 ML IV SCH (18:55)
--- NOTE | 2020-08-18 21:41 | History & Physical Report ---
Date of Service August 18, 2020 Assessment & Plan Admission and Anticipated Discharge Date Admission Date: 80 yo M w/ pMHx. of HTN, pulmonary fibrosis on 4L at home, carotid artery stenosis, HTN, Interstitial lung disease, and CKDIII presents with presyncope found to be dehydrated with elevated cr. to 4.94 overall concerning for failure to thrive. Lightheadedness likely 2/2 dehydration/malnutrition, question if depression is playing a role - IVF 125/hr, encourage oral intake - consulted nutrition XOCHITL on CKD III,(baseline appears 1.5-2) unclear if prerenal vs. postrenal, favor prerenal given dehydration and BUN/cr ratio but CT does show mild R dilation of the renal sinus and possible RUPJ obstruction - consulted nephrology - ordered urine electrolytes - continue to follow BMP - Retana placed - started Tamsulosin given concern for obstructive uropathy recent falls - PT/OT/Discharge consult Dysphagia - speech consult placed for evaluation Interstitial lung disease, on home oxygen requirement of 4: saturation 100% - continue Combivent and Advair HTN - holding lasix and spironolactone Carotid artery stenosis - continue ASA, Plavix COVID: negative 08/18 Code: full diet: regular DVT: Lovenox History of Present Illness Chief Complaint: lightheadedness Primary Care Provider: Yisel Pittman MD Mr. Sathish Rangel is a 80 yo M here for lightheadedness. He has a past medical history of pulmonary fibrosis, carotid artery stenosis, HTN, CKD III with a baseline cr. of 1.5 - 2, and hernia. He said that he has been feeling lightheaded when standing for the last week. He couldn't do anything and it has been getting progressively worse. He said that he has had 2 falls and was admitted 3 months prior for a fall. I asked about his weight, and he does not have a scale but does note that his clothes have been loose lately. He said that "nothing tastes good." Over the last 24 hours he ate 1/2 bowl of chili but otherwise in the last 4-5 days he has only taken in fluids. He did mention having some trouble with swallowing and choking. He did not have his teeth with him but was going to have a friend bring them. Friend Maxi [phone] Corroborated information with patient not eating well over the last few months, requiring a cane to get around his apartment over the last few days. He keeps the apartment warm and dry at 75-80 degrees. The apartment has been clean. Social: Former smoker 20 pack years quit 40+ years ago, no etoh or rec. drug use Allergies Allergy/AdvReac Type Severity Reaction Status Date / Time No Known Allergies Allergy Verified 08/18/20 18:40 Home Medications Medication Instructions Recorded Confirmed Type aspirin 81 mg PO DAILY #30 tab 02/19/19 08/18/20 Rx ferrous sulfate 325 mg PO BID #60 tab 02/19/19 08/18/20 Rx furosemide 80 mg tablet 40 mg PO DAILY #45 tab 12/29/19 08/18/20 Rx potassium chloride 20 mEq 20 meq PO QAM #90 tab 01/28/20 08/18/20 Rx tablet,extended release pantoprazole 40 mg tablet,delayed 40 mg PO BID #180 tab 02/04/20 08/18/20 Rx release ipratropium 20 mcg-albuterol 100 1 puff INHALATION QID #12 g 02/11/20 08/18/20 Rx mcg/actuation mist for inhalation fluticasone 250 mcg-salmeterol 50 1 inh INH BID #180 ea 03/18/20 08/18/20 Rx mcg/dose blistr powdr for inhalation rosuvastatin 20 mg tablet 20 mg PO DAILY #90 tab 03/30/20 08/18/20 Rx amlodipine 5 mg tablet 5 mg PO DAILY #90 tab 04/21/20 08/18/20 Rx atenolol 25 mg tablet 12.5 mg PO DAILY #45 tab 04/21/20 08/18/20 Rx spironolactone 100 mg tablet 100 mg PO DAILY #90 tab 04/21/20 08/18/20 Rx fenofibrate nanocrystallized 145 145 mg PO DAILY #90 tab 07/06/20 08/18/20 Rx mg tablet clopidogrel 75 mg tablet 75 mg PO DAILY #90 tab 07/15/20 08/18/20 Rx docusate sodium 100 mg capsule 100 mg PO BID #180 cap 07/15/20 08/18/20 Rx hydrocodone 5 mg-acetaminophen 325 1 tab PO TID PRN #30 tab 08/18/20 08/18/20 Rx mg tablet Past Med/Surg History Medical History XOCHITL (acute kidney injury) Allergic rhinitis Carotid bruit present Chronic kidney disease, stage 3 Chronic venous insufficiency COPD (chronic obstructive pulmonary disease) CVA (cerebral vascular accident) Dysphagia HTN (hypertension) 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 Pulmonary fibrosis Sinus bradycardia Surgical History History of umbilical hernia repair Family History Father Stroke Cancer Mother Hypertension Social History Smoking Status: Never smoker Second Hand Exposure: No; Hx Alcohol Use: No Hx Substance Use: No Preferred Language: Slovak Communication Ability: Effective Visual Impairment: No Limitations Hearing Ability: Normal Insurance Job Titles Required: No Beliefs That Will Affect Care: None marital status: Single Current Living Situation: Alone Current Living Situation Comment: friends live close by and check on pt frequently current occupational status: retired Other Information That Helps Us Care for You: No Feels Safe at Home: Yes Safety Concerns: Feels Safe At This Time Childhood Exposure to Second-Hand Smoke: Yes Dental Care, Regularly: Yes Physical Activity Frequency: Does not Exercise Seatbelt Use: always Sunscreen Use: Yes Assistive Devices: Oxygen - Continuous and Walker Review of Systems Review of Systems: Constitutional: admits chronic chills, denies vomiting, fatigue, night sweats Head: denies vision changes, confusion Neuro: denies syncope, slurring of speech ENT: admits vertigo, sneezing, sore throat Cardiac: denies chest pain, palpitations Pulm: admits cough, denies sputum production GI: admits constipation, bleeding : admits urgency and chronic dysuria Physical Exam Constitutional: + thin, + frail appearing and well groomed Eyes: PERRL, conjunctivae normal, anicteric sclerae ENMT: external ear and nose normal, oropharynx normal Neck: normal visual inspection Respiratory: normal respiratory effort, lungs clear to auscultation Cardiovascular: Rate/Rhythm: regular rate and regular rhythm Heart Sounds: + murmur (systolic) Gastrointestinal (Abdomen): normal bowel sounds, soft, nontender, no hepatosplenomegaly Skin: no rashes, warm and dry Neurologic: no focal motor deficits and not confused Psychiatric: Orientation: alert, oriented to person, oriented to place and o riented to time (knew the month and year) Lymphatic: no cervical lymphadenopathy Results & Data Results & Data ([facility]) Vital Signs (Past 12 Hours) Vital Signs Temp Pulse Resp BP Pulse Ox 08/18/20 20:40 20 100 08/18/20 20:31 20 100 08/18/20 20:30 21 99/41 L 100 08/18/20 20:20 20 100 08/18/20 20:10 21 100 08/18/20 20:01 22 100 08/18/20 20:00 21 108/42 L 100 08/18/20 19:50 21 100 08/18/20 19:40 21 100 08/18/20 19:31 22 100 08/18/20 19:30 19 113/52 L 100 08/18/20 19:20 18 100 08/18/20 19:12 23 107/52 L 100 08/18/20 19:10 20 99 08/18/20 19:00 18 100 08/18/20 18:50 20 100 08/18/20 18:40 22 100 08/18/20 18:31 21 100 08/18/20 18:30 25 H 109/42 L 100 08/18/20 18:20 26 H 100 08/18/20 18:10 64 21 100 08/18/20 18:01 23 100 08/18/20 18:00 23 108/48 L 100 08/18/20 17:51 16 100 08/18/20 17:30 21 100 08/18/20 17:20 27 H 100 08/18/20 17:10 21 100 08/18/20 17:01 23 100 08/18/20 17:00 21 113/46 L 99 08/18/20 16:50 23 100 08/18/20 16:40 23 08/18/20 16:30 22 90 08/18/20 16:20 24 98 08/18/20 16:10 69 17 08/18/20 16:00 28 H 08/18/20 15:50 174 H 22 08/18/20 15:40 109 H 20 100 08/18/20 15:32 98 08/18/20 15:31 115 H 21 100 08/18/20 15:30 110 H 22 118/49 L 100 08/18/20 15:20 31 H 95 08/18/20 15:13 101 H 34 H 93 08/18/20 15:00 106 H 30 H 111/46 L 95 08/18/20 14:55 37.2 C 83 20 124/61 96 CBC Results Results Complete Blood Count Results: RBC 3.39 M/uL (4.7-6.1) L 08/19/20 WBC 6.61 K/uL (4.8-10.8) 08/19/20 Hgb 10.6 g/dL (14.0-18.0) L 08/19/20 Hct 31.5 % (42-52) L 08/19/20 Plt Count 267 K/uL (130-400) 08/19/20 Chemistry (BMP) Results BMP Results: Sodium 133 mmol/L (136-145) L 08/19/20 Potassium 4.9 mmol/L (3.5-5.1) 08/19/20 Chloride 104 mmol/L (98-107) 08/19/20 BUN 110 mg/dl (7-18) H 08/19/20 Creatinine 3.66 mg/dl (0.6-1.4) H 08/19/20 Glucose 103 mg/dl (70-99) H 08/19/20 Supervising Physician Co-Signing Physician Notes Attending addendum: I have physically seen this patient, have supervised the medical residents activities, and agree with the H&P unless as otherwise noted. Assessment and Plan: Elevated troponin/hypertension- The patient will be admitted to telemetry for serial cardiac enzymes, serial EKG's, cardiac rhythm monitoring and a 2-D echocardiogram with Dopplers. Most likely type II TN/supply demand mismatch, likely aggravated/caused by acute renal failure Continue aspirin, atenolol, clopidogrel. Acute renal failure on CKD- Creatinine 4.94 upon admission, potassium 5.7, sodium 129. Continue IV fluid rehydration with normal saline at 100 mils per hour. Serial CBC with differential, basic metabolic panel, phosphorus and magnesium level. Likely combination of prerenal state and postobstructive uropathy. Hold furosemide, spironolactone, and potassium. Consult nephrology Remaining orders and notations as noted Resident Activity Tracking Resident Involvement: Resident Care Provided Care Provided: [facility]
[2020-08-18] MEDS ORDERED: ACETAMINOPHEN 325 MG TAB PO PRN (23:34)
[2020-08-18] MEDS ORDERED: POLYETHYLENE (MIRALAX) 17 GM PACK PO PRN (23:34)
[2020-08-18] MEDS ORDERED: HYDROCODONE/ACETAMOPHEN 5/325MG TAB PO PRN (23:34)
[2020-08-19] MEDS: IPRATROPIUM BROMIDE HFA INHALER INH SCH ×5 (00:46→20:02)
[2020-08-19] MEDS: PANTOprazole 40 MG TAB PO SCH ×3 (00:46→20:40)
[2020-08-19] MEDS: DOCUSATE SODIUM 100 MG CAP PO SCH ×3 (00:46→20:39)
[2020-08-19] MEDS: SODIUM CHLORIDE 0.9% 500 ML IV SCH ×3 (00:46→10:00)
[2020-08-19] MEDS: TAMSULOSIN HCL 0.4 MG CAP PO SCH ×2 (00:58→20:39)
[2020-08-19] MEDS: ALBUTEROL HFA 8 GM INHALER INH SCH ×5 (01:34→20:04)
--- NOTE | 2020-08-19 06:36 | Electrocardiogram Report ---
Test Reason : Blood Pressure : / mmHG Vent. Rate : 053 BPM Atrial Rate : 053 BPM P-R Int : 228 ms QRS Dur : 038 ms QT Int : 178 ms P-R-T Axes : 164 000 183 degrees QTc Int : 167 ms Poor data quality, interpretation may be adversely affected Sinus bradycardia with 1st degree A-V block Anterolateral infarct Inferior infarct Abnormal ECG When compared with ECG of 13-FEB-2019 10:42, Questionable change in QRS duration HR has decreased by 42 bpm Confirmed by Favian Beal ([id number]) on 08/19/2020 6:35:42 AM Referred By: Yisel Pittman Confirmed By:Favian Beal
[2020-08-19 07:06] LABS: Hematocrit (blood only) 31.5 % (42-52); Hemoglobin 10.6 g/dL (14.0-18.0); Immature Granulocytes # (auto) 0.01 K/uL (0.00-0.02); Immature Granulocytes % (auto) 0.2 %; Lymphocytes # (auto) 0.62 K/uL (1.2-3.4); Lymphocytes % (auto) 9.4 %; Mean Corpuscular Hemoglobin 31.3 pg (25-34); Mean Corpuscular Hgb Conc 33.7 g/dL (32-36); Mean Corpuscular Volume 92.9 fL (80-100); Mean Platelet Volume 11.9 fL (7.4-10.4); Monocytes # (auto) 0.12 K/uL (0.11-0.59); Monocytes % (auto) 1.8 %; Neutrophils # (auto) 5.86 K/uL (1.4-6.5); Neutrophils % (auto) 88.6 %; Platelet Count 267 K/uL (130-400); RDW Coefficient of Variation 13.3 % (11.5-14.5); RDW Standard Deviation 45.6 fL (36.4-46.3); Red Blood Count 3.39 M/uL (4.7-6.1); White Blood Count 6.61 K/uL (4.8-10.8)
[2020-08-19 07:13] LABS: INR 1.6 (0.9-1.1); Prothrombin Time 15.7 Seconds (9.0-12.0)
[2020-08-19 07:33] LABS: Calcium 8.9 mg/dl (8.5-10.1); Creatinine Clr Calc Pharmacy 14.8 ml/min; Est GFR (Non-African American) 14.6; Potassium 4.9 mmol/L (3.5-5.1)
[2020-08-19 08:05] LABS: Urine Potassium 19.4 mmol/L
[2020-08-19] MEDS: ASPIRIN 81 MG ECTAB PO SCH (08:41)
[2020-08-19] MEDS: FENOFIBRATE NANOCRYSTALLIZED 145 MG TABLET PO SCH (08:42)
[2020-08-19] MEDS: ATENOLOL 25 MG TABLET PO SCH (08:42)
[2020-08-19] MEDS: FERROUS SULFATE 325 MG TAB PO SCH ×2 (08:42→20:39)
[2020-08-19] MEDS: CLOPIDOGREL BISULFATE 75 MG TAB PO SCH (08:42)
[2020-08-19] MEDS: FLUTICASONE/VILANTEROL 100/25MCG 14 PUFFS/INHALER INH SCH (08:43)
[2020-08-19] MEDS: HEPARIN SOD 5,000 UNIT/0.5 ML VIAL SC SCH ×2 (08:44→20:39)
[2020-08-19] MEDS ORDERED: amLODIPine BESYLATE 5 MG TAB PO SCH (09:00)
[2020-08-19] MEDS ORDERED: NORMOSOL-R 1,000 ML IV SCH (09:00)
[2020-08-19] MEDS ORDERED: ENOXAPARIN INJ 40 MG/0.4 ML SYR SQ SCH (09:00)
[2020-08-19] MEDS ORDERED: ROSUVASTATIN CALCIUM 20 MG TAB PO SCH (09:00)
--- NOTE | 2020-08-19 10:00 | Ultrasound Report ---
RENAL ULTRASOUND CLINICAL HISTORY: Acute renal failure. COMPARISON STUDY: Renal ultrasound December 08, 2017. CT of the abdomen and pelvis August 18, 2020. TECHNIQUE: Sonography of the kidneys and the urinary bladder was performed. FINDINGS: Right kidney measures 9.1 x 4.9 x 4.8 cm and the left measures 8.4 x 4.2 x 4.3 cm. There is moderate left and mild right renal cortical thinning. There is no right hydronephrosis. Note is made of a 3.9 x 1.6 x 2.8 cm anechoic focus within the left renal sinus which corresponds to the finding on prior CT. This could reflect collecting system dilatation or parapelvic cyst. This is unchanged fr om CT of January 15, 2019. Bladder is collapsed, containing a Retana catheter. No renal calculi are ident ified. No ureteral calculi identified. IMPRESSION: 1. No right hydronephrosis. 2. 3.9 cm anechoic focus within the left renal sinus which could reflect a parapelvic cyst or a chron ically dilated collecting system suggestive of a mild UPJ type obstruction which is similar to CT of January 15, 2019. 3. Moderate left and mild right renal atrophy. ACT 112: Negative or not required by law. Electronically signed by: Rodolfo Ballesteros M.D. 08/19/2020 9:58 AM
[2020-08-19] MEDS: SODIUM BICARBONATE 650 MG TAB PO SCH ×2 (10:28→20:39)
--- NOTE | 2020-08-19 12:21 | Hospitalist Progress Note ---
Date of Service August 19, 2020 Assessment & Plan (1) Acute on chronic renal failure: Continue IV fluid rehydration. Diuretics are on hold. Renal ultrasound pending. Serial lab studies. Nephrology consultation. Present on Admission?: Yes (2) Near syncope: Due to volume depletion and hypotension. Amlodipine discontinued. Continue IV fluid rehydration. Present on Admission?: Yes (3) Hyponatremia: Mild. Continue normal saline hydration. Serial lab studies. Check serum osmolarity Present on Admission?: Yes (4) Elevated troponin: Mild. Most likely due to renal failure. He denies chest pain. Will trend. Telemetry (5) Mixed restrictive and obstructive lung disease: Known interstitial lung disease. Currently stable (6) Chronic respiratory failure with hypoxia, on home O2 therapy: He uses 4 L oxygen at home. Currently stable Disposition: To be determined. Await OT, PT, speech therapy assessments Admission and Anticipated Discharge Date Admission Date: August 18, 2020 Subjective Alert and oriented. He states he feels fine except for weakness. Diuretics are on hold. Case discussed with nephrology. Creatinine trending down with IV fluids, down to 3.6 from 4.9 on admission. Baseline appears to be around 1.4. Renal ultrasound ordered. Troponin is minimally elevated on admission probably due to renal failure. This will be repeated. Amlodipine is discontinued due to hypotension. IV fluid rate taper down Review of Systems Review of Systems: Constitutional-no fever or chills. Generalized weakness ENT-no blurred vision, no double vision, no epistaxis, no sore throat Respiratory-no cough, no wheezing, no shortness of breath Cardiac-no palpitations, no chest pain, no syncope GI-no nausea, vomiting, diarrhea, melena, hematochezia -no urinary retention, no urinary incontinence, no dysuria, no hematuria Musculoskeletal-no joint pain, no muscle tenderness. Generalized weakness Skin-no bruising, no rashes, no pruritus Neuro-no isolated weakness, no paresthesia, no weakness Psych-no depression, no anxiety Physical Exam Physical Exam: General-alert and oriented x3, no fevers, no chills HEENT-head atraumatic and normocephalic, TMs intact bilaterally, pupils equal and reactive to light, extraocular muscles intact Neck-no lymphadenopathy or thyromegaly, trachea midline Chest-clear to auscultation percussion. No rales wheezing or rhonchi Cardiac-regular rate and rhythm, normal S1 and S2, no murmurs Abdomen-normal bowel sounds, nontender, no hepatosplenomegaly Extremities-no cyanosis, clubbing, or edema Neuro-cranial nerves II through XII intact, motor and sensory function within normal limits, strength symmetrical , no focal deficits Psych-normal affect, normal mood Results & Data Results & Data ([facility]) Vital Signs (Past 12 Hours) Vital Signs Temp Pulse Pulse Resp BP Pulse Ox 08/19/20 11:37 36.3 C L 55 L 18 111/61 99 08/19/20 10:55 55 L 18 96 08/19/20 08:00 48 L 08/19/20 07:55 36.6 C 76 16 93/44 L 94 08/19/20 07:32 49 L 18 99 08/19/20 03:43 36.5 C 60 18 95/51 L 99 08/19/20 01:34 51 L 16 100 Laboratory Results 08/19/20 06:36 08/19/20 06:36 PG Care Time/CCT Total # of Minutes Spent Total Time Spent with Patient: Total time spent is greater than 50% in coordination of care (as documented) at patient's floor/unit and/or counseling patient: Coding Level of Care Code 44217 Subseq Hosp Care Lvl 3 Diagnoses Acute on chronic renal failure N17.9; N18.9 Acute renal failure type: unspecified Chronic kidney disease stage: unspecified stage Near syncope R55 Hyponatremia E87.1 Elevated troponin R77.8 Mixed restrictive and obstructive lung disease J44.9; J98.4 Chronic respiratory failure with hypoxia, on home O2 therapy J96.11; Z99.81 (1) Acute on chronic renal failure Acute renal failure type: unspecified Chronic kidney disease stage: uns pecified stage Qualified Code(s): N17.9 - Acute kidney failure, unspecified; N18.9 - Chronic kidney disease, unspecified
--- NOTE | 2020-08-19 17:08 | Nephrology Consultation ---
Date of Consultation August 19, 2020 Assessment & Plan (1) Acute on chronic renal failure: Baseline creatinine 1.5-2.0 mg/dL. UA bland and acellular. Imaging not consistent with obstruction. Clinical presentation consistent with prerenal physiology and possible ATN. Improvement noted with IVF. Non-oliguric. Tolerating fluids well. Continue IV fluid rehydration. NSS switched to normosol. Oral NaHCO3 replacement provided for NAGMA. Diuretics are on hold. Repeat metabolic profile tomorrow AM. Medications are appropriately dosed for kidney dysfunction. (2) Near syncope: Due to volume depletion and hypotension. Amlodipine discontinued. C ontinue IV fluid rehydration. Repeat orthostatic vitals in the AM. (3) Hyponatremia: Hypovolemic. Improving with NSS. Will monitor. History of Present Illness Reason for Consultation: XOCHITL Requesting Physician: Jose Juarez MD Attending Physician: Jose Juarez MD History of Present Illness Mr. Sathish Rangel is an 79-year-old male with chronic kidney disease class 3A. Creatinine was 1.5 mg/dL in May 2019 and 2.0 in November 2019. Medical history is notable for pulmonary fibrosis on chronic oxygen (4L), COPD, hypertension, anemia, and OA/DDD. Sathish was referred to the ER by his PCP yesterday with weakness, worsening cough, congestion, persistent loose stool, and near syncope. Symptoms were present for approximately 48 hours prior to presentation. At the time of my assessment today, Sathish feels well and notes significant improvement in all symptoms. Some mild chest congestion persists. On presentation, creatinine was 4.9 mg/dL. Potassium was 5.7 mmol/L but without concerning EKG changes. EKF demonstrating sinus rhythm @ 60 bpm without acute changes. CT the abdomen pelvis negative for acute intra-abdominal process. Mild right collecting system dilatation is nonspecific no calculi are identified. A follow up renal US was obtained which demonstrated chronic findings. UA bland and acellular. COVID-19 PCR negative. Influenza and RSV PCR negative. Retana is draining clear yellow urine. Sathish has had multiple episodes of acute kidney injury typically attributed to volume depletion. I met Sathish during a hospitalization with XOCHITL due to dehydration in 2018. He has not maintained routine follow up with nephrology since March 2019. Sathish lives in an apartment above [address]. He climbs multiple steps of stairs to his apartment. His activity tolerance is reported is very good. He has advanced COPD and pulmonary fibrosis requiring chronic supplemental oxygen. CT scan of the abdomen and pelvis from December is available for review. Both kidneys show at least moderate cortical atrophy. There is asymmetry with notable atrophy of the left kidney. Multiple bilateral cysts appear to be cortical and some possibly medullary but none of which appear concerning the complex. He does have mild lower extremity edema associated with venous insufficiency. This is not particularly bothersome to him. Allergies Allergy/AdvReac Type Severity Reaction Status Date / Time No Known Allergies Allergy Verified 08/18/20 18:40 Home Medications Medication Instructions Recorded Confirmed Type aspirin 81 mg PO DAILY #30 tab 02/19/19 08/18/20 Rx ferrous sulfate 325 mg PO BID #60 tab 02/19/19 08/18/20 Rx furosemide 80 mg tablet 40 mg PO DAILY #45 tab 12/29/19 08/18/20 Rx potassium chloride 20 mEq 20 meq PO QAM #90 tab 01/28/20 08/18/20 Rx tablet,extended release pantoprazole 40 mg tablet,delayed 40 mg PO BID #180 tab 02/04/20 08/18/20 Rx release ipratropium 20 mcg-albuterol 100 1 puff INHALATION QID #12 g 02/11/20 08/18/20 Rx mcg/actuation mist for inhalation fluticasone 250 mcg-salmeterol 50 1 inh INH BID #180 ea 03/18/20 08/18/20 Rx mcg/dose blistr powdr for inhalation rosuvastatin 20 mg tablet 20 mg PO DAILY #90 tab 03/30/20 08/18/20 Rx amlodipine 5 mg tablet 5 mg PO DAILY #90 tab 04/21/20 08/18/20 Rx atenolol 25 mg tablet 12.5 mg PO DAILY #45 tab 04/21/20 08/18/20 Rx spironolactone 100 mg tablet 100 mg PO DAILY #90 tab 04/21/20 08/18/20 Rx fenofibrate nanocrystallized 145 145 mg PO DAILY #90 tab 07/06/20 08/18/20 Rx mg tablet clopidogrel 75 mg tablet 75 mg PO DAILY #90 tab 07/15/20 08/18/20 Rx docusate sodium 100 mg capsule 100 mg PO BID #180 cap 07/15/20 08/18/20 Rx hydrocodone 5 mg-acetaminophen 325 1 tab PO TID PRN #30 tab 08/18/20 08/18/20 Rx mg tablet Patient History Medical History XOCHITL (acute kidney injury) Allergic rhinitis Carotid bruit present Chronic kidney disease, stage 3 Chronic venous insufficiency COPD (chronic obstructive pulmonary disease) CVA (cerebral vascular accident) Dysphagia HTN (hypertension) 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 Pulmonary fibrosis Sinus bradycardia Surgical History History of umbilical hernia repair Family History Father Stroke Cancer Mother Hypertension Social History Smoking Status: Never smoker Second Hand Exposure: No; Hx Alcohol Use: No Hx Substance Use: No Preferred Language: Trinidadian Communication Ability: Effective Visual Impairment: No Limitations Hearing Ability: Normal It Infrastructure Consultant Required: No Beliefs That Will Affect Care: None marital status: Single Current Living Situation: Alone Current Living Situation Comment: friends live close by and check on pt frequently current occupational status: retired Other Information That Helps Us Care for You: No Feels Safe at Home: Yes Safety Concerns: Feels Safe At This Time Childhood Exposure to Second-Hand Smoke: Yes Dental Care, Regularly: Yes Physical Activity Frequency: Does not Exercise Seatbelt Use: always Sunscreen Use: Yes Assistive Devices: Oxygen - Continuous and Walker Review of Systems Review of Systems: All systems reviewed & are unremarkable except as noted in HPI & below Physical Exam Constitutional: well developed and + frail appearing; no acute distress Eyes: + anicteric sclerae; no corneal abnormality ENMT: Mouth: no oral mucosal abnormality and oral mucous membranes not dry Neck: normal visual inspection and trachea midline Respiratory: normal respiratory effort Auscultation: lungs clear to auscultation bilaterally Cardiovascular: Rate/Rhythm: regular rate Heart Sounds: normal S1 and normal S2 Vessels: + JVD Extremities: + edema Gastrointestinal (Abdomen): Percussion/Palpation: abdomen soft; abdomen nontender Musculoskeletal: Extremities: no cyanosis and no clubbing Skin: normal turgor; no lesions Neurologic: Motor/Sensory: no tremor and no asterixis Psychiatric: Orientation: alert and oriented x 3 Results & Data ([facility]) Vital Signs (Past 12 Hours) Vital Signs Temp Pulse Pulse Resp BP BP Pulse Ox 08/19/20 15:19 36.4 C L 52 L 18 112/53 L 99 08/19/20 15:15 90 20 99 08/19/20 15:10 98 08/19/20 12:49 08/19/20 11:37 36.3 C L 55 L 18 111/61 99 08/19/20 10:55 55 L 18 96 08/19/20 08:00 48 L 08/19/20 07:55 36.6 C 76 16 93/44 L 94 08/19/20 07:32 49 L 18 99 Pulse Ox 08/19/20 15:19 08/19/20 15:15 08/19/20 15:10 08/19/20 12:49 98 08/19/20 11:37 08/19/20 10:55 08/19/20 08:00 08/19/20 07:55 08/19/20 07:32 Laboratory Results Laboratory Results - last 24 hr 08/18/20 08/18/20 08/19/20 17:25 19:51 06:36 WBC 6.61 RBC 3.39 L Hgb 10.6 L Hct 31.5 L MCV 92.9 MCH 31.3 MCHC 33.7 RDW Std Deviation 45.6 RDW Coeff of [place] 13.3 Plt Count 267 MPV 11.9 H Immature Gran % (Auto) 0.2 Neut % (Auto) 88.6 Lymph % (Auto) 9.4 [place] % (Auto) 1.8 Eos % (Auto) 0.0 Baso % (Auto) 0.0 Neut # (Auto) 5.86 Lymph # (Auto) 0.62 L [place] # (Auto) 0.12 Eos # (Auto) 0.00 Baso # (Auto) 0.00 Immature Gran # (Auto) 0.01 PT INR Sodium Potassium Chloride Carbon Dioxide Anion Gap BUN Creatinine Est Cr Clr Drug Dosing Est GFR ( Amer) Est GFR (Non-Af Amer) BUN/Creatinine Ratio Glucose Osmolality Calcium Troponin I Procalcitonin 0.24 Urine Color Yellow Urine Appearance Clear Urine pH 5.0 Ur Specific [place] 1.015 Urine Protein Negative Urine Glucose (UA) Negative Urine Ketones Negative Urine Blood Negative Urine Nitrite Negative Urine Bilirubin Negative Urine Urobilinogen Negative Ur Leukocyte Esterase Negative Urine Sodium Urine Potassium Urine Chloride 08/19/20 08/19/20 08/19/20 06:36 06:36 06:43 WBC RBC Hgb Hct MCV MCH MCHC RDW Std Deviation RDW Coeff of [place] Plt Count MPV Immature Gran % (Auto) Neut % (Auto) Lymph % (Auto) [place] % (Auto) Eos % (Auto) Baso % (Auto) Neut # (Auto) Lymph # (Auto) [place] # (Auto) Eos # (Auto) Baso # (Auto) Immature Gran # (Auto) PT 15.7 H INR 1.6 H Sodium 133 L Potassium 4.9 Chloride 104 Carbon Dioxide 17 L Anion Gap 12.0 H BUN 110 H Creatinine 3.66 H D Est Cr Clr Drug Dosing 14.8 Est GFR ( Amer) 17.0 Est GFR (Non-Af Amer) 14.6 BUN/Creatinine Ratio 30.0 H Glucose 103 H Osmolality Calcium 8.9 Troponin I Procalcitonin Urine Color Urine Appearance Urine pH Ur Specific [place] Urine Protein Urine Glucose (UA) Urine Ketones Urine Blood Urine Nitrite Urine Bilirubin Urine Urobilinogen Ur Leukocyte Esterase Urine Sodium 62 Urine Potassium 19.4 Urine Chloride 62 08/19/20 08/19/20 08:42 08:42 WBC RBC Hgb Hct MCV MCH MCHC RDW Std Deviation RDW Coeff of [place] Plt Count MPV Immature Gran % (Auto) Neut % (Auto) Lymph % (Auto) [place] % (Auto) Eos % (Auto) Baso % (Auto) Neut # (Auto) Lymph # (Auto) [place] # (Auto) Eos # (Auto) Baso # (Auto) Immature Gran # (Auto) PT INR Sodium Potassium Chloride Carbon Dioxide Anion Gap BUN Creatinine Est Cr Clr Drug Dosing Est GFR ( Amer) Est GFR (Non-Af Amer) BUN/Creatinine Ratio Glucose Osmolality 315 H Calcium Troponin I 0.054 H* Procalcitonin Urine Color Urine Appearance Urine pH Ur Specific [place] Urine Protein Urine Glucose (UA) Urine Ketones Urine Blood Urine Nitrite Urine Bilirubin Urine Urobilinogen Ur Leukocyte Esterase Urine Sodium Urine Potassium Urine Chloride PG Care Time/CCT Total # of Minutes Spent Total Time Spent with Patient: Total time spent is greater than 50% in coordination of care (as documented) at patient's floor/unit and/or counseling patient: Coding Level of Care Code 59981 Inpt Consult Level 4 Diagnoses Acute on chronic renal failure N17.9; N18.9 Acute renal failure type: unspecified Chronic kidney disease stage: unspecified stage Near syncope R55 Hyponatremia E87.1 (1) Acute on chronic renal failure Acute renal failure type: unspecified Chronic kidney disease stage: unspecified stage Qualified Code(s): N17.9 - Acute kidney failure, unspecified; N18.9 - Chronic kidney disease, unspecified
--- NOTE | 2020-08-19 23:46 | Billing Data ---
Date of Service August 19, 2020 Coding Level of Care Code 87147 Initial Inpt Care Lvl 3
--- NOTE | 2020-08-20 05:04 | Electrocardiogram Report ---
Test Reason : Blood Pressure : / mmHG Vent. Rate : 049 BPM Atrial Rate : 049 BPM P-R Int : 216 ms QRS Dur : 076 ms QT Int : 432 ms P-R-T Axes : 063 -22 026 degrees QTc Int : 390 ms Poor data quality, interpretation may be adversely affected Sinus bradycardia with 1st degree A-V block Low voltage QRS Septal infarct , age undetermined Inferior infarct , age undetermined Abnormal ECG When compared with ECG of 18-AUG-2020 15:21, Borderline criteria for Anterolateral infarct are no longer Present Confirmed by Favian Beal ([id number]) on 08/20/2020 5:03:45 AM Referred By: Yisel Pittman Confirmed By:Favian Beal
[2020-08-20] MEDS: ALBUTEROL HFA 8 GM INHALER INH SCH ×4 (07:13→19:26)
[2020-08-20] MEDS: IPRATROPIUM BROMIDE HFA INHALER INH SCH ×4 (07:13→19:25)
[2020-08-20 07:34] LABS: Eosinophils # (auto) 0.01 K/uL (0-0.5); Eosinophils % (auto) 0.2 %; Hematocrit (blood only) 29.9 % (42-52); Hemoglobin 10.1 g/dL (14.0-18.0); Immature Granulocytes # (auto) 0.02 K/uL (0.00-0.02); Immature Granulocytes % (auto) 0.3 %; Lymphocytes # (auto) 0.87 K/uL (1.2-3.4); Lymphocytes % (auto) 14.6 %; Mean Corpuscular Hemoglobin 31.3 pg (25-34); Mean Corpuscular Hgb Conc 33.8 g/dL (32-36); Mean Corpuscular Volume 92.6 fL (80-100); Mean Platelet Volume 11.8 fL (7.4-10.4); Monocytes # (auto) 0.71 K/uL (0.11-0.59); Monocytes % (auto) 11.9 %; Neutrophils # (auto) 4.34 K/uL (1.4-6.5); Platelet Count 230 K/uL (130-400); RDW Coefficient of Variation 13.3 % (11.5-14.5); RDW Standard Deviation 44.8 fL (36.4-46.3); Red Blood Count 3.23 M/uL (4.7-6.1); White Blood Count 5.95 K/uL (4.8-10.8)
[2020-08-20 08:07] LABS: BUN Creatinine Ratio 36.1 (10-20); Calcium 8.8 mg/dl (8.5-10.1); Est GFR (African American) 27.4; Est GFR (Non-African American) 23.7
[2020-08-20] MEDS: FLUTICASONE/VILANTEROL 100/25MCG 14 PUFFS/INHALER INH SCH (08:12)
[2020-08-20] MEDS: CLOPIDOGREL BISULFATE 75 MG TAB PO SCH (08:13)
[2020-08-20] MEDS: ASPIRIN 81 MG ECTAB PO SCH (08:13)
[2020-08-20] MEDS: ATENOLOL 25 MG TABLET PO SCH (08:13)
[2020-08-20] MEDS: PANTOprazole 40 MG TAB PO SCH ×2 (08:14→22:14)
[2020-08-20] MEDS: SODIUM BICARBONATE 650 MG TAB PO SCH ×2 (08:14→22:14)
[2020-08-20] MEDS: ROSUVASTATIN CALCIUM 10 MG TAB PO SCH (08:14)
[2020-08-20] MEDS: FENOFIBRATE NANOCRYSTALLIZED 145 MG TABLET PO SCH (08:14)
[2020-08-20] MEDS: FERROUS SULFATE 325 MG TAB PO SCH ×2 (08:14→22:12)
[2020-08-20] MEDS: HEPARIN SOD 5,000 UNIT/0.5 ML VIAL SC SCH ×2 (08:15→22:13)
[2020-08-20] MEDS: DOCUSATE SODIUM 100 MG CAP PO SCH ×2 (08:15→22:12)
--- NOTE | 2020-08-20 10:24 | Nephrology Progress Note ---
Date of Service August 20, 2020 Assessment & Plan (1) Acute on chronic renal failure: * Improved following IV hydration * Patient remains clinically volume contracted. Will provide 1L Normosol IV today. Continue to hold diuretics * Urine sediment is negative for blood, protein or ATN casts. Abdominal imaging is negative for hydronephrosis * Renal US reveals cortical thinning suggestive of microvascular disease. Baseline Cr 1.5 - 2.0 mg/dL * Remains on low dose NaHCO3 for management of metabolic acidosis (2) Near syncope: * Due to volume depletion and hypotension. Furosemide and Amlodipine are being held * Continue IV fluid rehydration * Repeat orthostatic vitals in the AM (3) Hyponatremia: * Corrected. Will monitor Admission and Anticipated Discharge Date Admission Date: August 18, 2020 Subjective Mr. Rangel was seen & examined in his hospital room this morning. At the time of my evaluation he was not wearing oxygen and denied dyspnea. He had a manuel catheter in place draining clear, yellow urine Review of Systems Constitutional: no fever Eyes: no problem reported Ear, Nose, Mouth, Throat: no problem reported Respiratory: no dyspnea Cardiovascular: no chest pain, no palpitations and no edema Gastrointestinal: no abdominal pain and no nausea Musculoskeletal: no back pain Integumentary: no rash Neurologic: no confusion Physical Exam Constitutional: + frail appearing; no acute distress Eyes: + anicteric sclerae; no corneal abnormality ENMT: Mouth: no oral mucosal abnormality Neck: normal visual inspection and trachea midline Respiratory: normal respiratory effort Auscultation: + rales Cardiovascular: Rate/Rhythm: regular rate Heart Sounds: normal S1 and normal S2 Extremities: no edema Gastrointestinal (Abdomen): Percussion/Palpation: abdomen soft; abdomen nontender Musculoskeletal: Extremities: no cyanosis Skin: + turgor decreased; no lesions Psychiatric: Orientation: alert and oriented x 3 Results & Data ([facility]) Vital Signs (Past 12 Hours) Vital Signs Temp Pulse Pulse Resp BP BP Pulse Ox 08/20/20 07:48 45 L 08/20/20 07:32 36.5 C 51 L 16 96/45 L 99 08/20/20 07:13 47 L 17 99 08/20/20 03:12 36.5 C 59 L 18 106/60 99 08/20/20 01:26 56 L 08/19/20 23:12 36.3 C L 56 L 16 110/60 100 Laboratory Tests 08/18/20 08/19/20 08/20/20 15:41 06:36 06:49 WBC 5.95 Hgb 10.1 L Hct 29.9 L Plt Count 230 Sodium Potassium Chloride Carbon Dioxide BUN Creatinine 4.94 H* 3.66 H D Glucose 08/20/20 06:49 WBC Hgb Hct Plt Count Sodium 136 Potassium 4.0 D Chloride 106 Carbon Dioxide 21 BUN 89 H Creatinine 2.46 H D Glucose 88 PG Care Time/CCT Total # of Minutes Spent Total Time Spent with Patient: Total time spent is greater than 50% in coordination of care (as documented) at patient's floor/unit and/or counseling patient: Coding Level of Care Code 40626 Subseq Hosp Care Lvl 3 Diagnoses Acute on chronic renal failure N17.9; N18.9 Acute renal failure type: unspecified Chronic kidney disease stage: unspecified stage Near syncope R55 Hyponatremia E87.1 (1) Acute on chronic renal failure Acute renal failure type: unspecified Chronic kidney disease stage: unspecified stage Qualified Code(s): N17.9 - Acute kidney failure, unspecified; N18.9 - Chronic kidney disease, unspecified
[2020-08-20] MEDS ORDERED: NORMOSOL-R 1,000 ML IV SCH (10:45)
--- NOTE | 2020-08-20 14:30 | Hospitalist Progress Note ---
Date of Service August 20, 2020 Assessment & Plan (1) Acute on chronic renal failure: Continue IV fluid rehydration. Diuretics are on hold. Cr is improving Renal ultrasound noted for cyst vs obstruction, no change from 12/2018 US Serial lab studies Renal feels pre-renal, possibly ATN. Recheck PRP in AM (2) Near syncope: Due to volume depletion and hypotension. Amlodipine discontinued. Continue IV fluid rehydration. 1st degree AVB noted on EKG, seen prior (first in system is 2019)--may be something to continue if ongoing near syncope once hydration status is addressed ECHO 11/2017 with EF 55-60%, not redone given above (3) Hyponatremia: Mild. Continue normal saline hydration. Serial lab studies. Check serum osmolarity (4) Elevated troponin: Mild. Most likely due to renal failure. He denies chest pain. Will trend. Telemetry (5) Mixed restrictive and obstructive lung disease: Known interstitial lung disease. Currently stable (6) Chronic respiratory failure with hypoxia, on home O2 therapy: He uses 4 L oxygen at home. Currently stable Disposition: To be determined. OT recs for likely home, PT recs for home with home PT vs rehab speech therapy recs for easy to chew and small bites Admission and Anticipated Discharge Date Admission Date: August 18, 2020 Subjective Pt states he feels much better. He feels he is eating better than he was [employer]. No specific concerns. He does state that he still feels weak overall. He does not feel that has changed. Pt denies fever, SOB, chest pain, abd pain, n/v/c/d, LE pain or swelling. Tolerating PO without issue. Review of Systems Review of Systems: Pertinent positives and negatives reviewed in HPI--all others negative Physical Exam Constitutional: well developed and + thin Eyes: normal visual pina by confrontation and + anicteric sclerae Neck: normal visual inspection and trachea midline Respiratory: normal respiratory effort, lungs clear to auscultation Cardiovascular: Rate/Rhythm: regular rate and regular rhythm Gastrointestinal (Abdomen): Inspection/Auscultation: abdomen not distended Percussion/Palpation: abdomen soft; abdomen nontender Musculoskeletal: Head/Neck/Chest: normocephalic and head atraumatic negative for edema, peripheral pulses intact Skin: no rashes, warm and dry Neurologic: awake; not confused Speech / Cognition: normal speech Psychiatric: A+Ox3, euthymic affect Results & Data Results & Data ([facility]) Vital Signs (Past 12 Hours) Vital Signs Temp Pulse Pulse Resp BP BP Pulse Ox 08/20/20 11:25 36.7 C 95 H 16 107/59 L 95 08/20/20 11:24 63 16 411 H 08/20/20 07:48 45 L 08/20/20 07:32 36.5 C 51 L 16 96/45 L 99 08/20/20 07:13 47 L 17 99 08/20/20 03:12 36.5 C 59 L 18 106/60 99 PG Care Time/CCT Total # of Minutes Spent Total Time Spent with Patient: Total time spent is greater than 50% in coordination of care (as documented) at patient's floor/unit and/or counseling patient: Coding Level of Care Code 44688 Subseq Hosp Care Lvl 3 Diagnoses Acute on chronic renal failure N17.9; N18.9 Acute renal failure type: unspecified Chronic kidney disease stage: unspecified stage Near syncope R55 Hyponatremia E87.1 Elevated troponin R77.8 Mixed restrictive and obstructive lung disease J44.9; J98.4 Chronic respiratory failure with hypoxia, on home O2 therapy J96.11; Z99.81 (1) Acute on chronic renal failure Acute renal failure type: unspecified Chronic kidney disease stage: unspecified stage Qualified Code(s): N17.9 - Acute kidney failure, unspecified; N18.9 - Chronic kidney disease, unspecified
[2020-08-20] MEDS: TAMSULOSIN HCL 0.4 MG CAP PO SCH (22:13)
[2020-08-21 06:05] LABS: Basophils # (auto) 0.01 K/uL (0-0.2); Basophils % (auto) 0.1 %; Eosinophils # (auto) 0.13 K/uL (0-0.5); Eosinophils % (auto) 1.7 %; Hematocrit (blood only) 29.1 % (42-52); Hemoglobin 9.8 g/dL (14.0-18.0); Immature Granulocytes # (auto) 0.06 K/uL (0.00-0.02); Immature Granulocytes % (auto) 0.8 %; Lymphocytes # (auto) 1.18 K/uL (1.2-3.4); Lymphocytes % (auto) 15.6 %; Mean Corpuscular Hemoglobin 31.3 pg (25-34); Mean Corpuscular Hgb Conc 33.7 g/dL (32-36); Monocytes # (auto) 0.97 K/uL (0.11-0.59); Monocytes % (auto) 12.8 %; Neutrophils # (auto) 5.22 K/uL (1.4-6.5); Platelet Count 205 K/uL (130-400); RDW Coefficient of Variation 13.6 % (11.5-14.5); RDW Standard Deviation 45.6 fL (36.4-46.3); Red Blood Count 3.13 M/uL (4.7-6.1); White Blood Count 7.57 K/uL (4.8-10.8)
[2020-08-21 06:50] LABS: BUN Creatinine Ratio 34.1 (10-20); Calcium 7.7 mg/dl (8.5-10.1); Creatinine Clr Calc Pharmacy 27.7 ml/min; Est GFR (African American) 36.3; Est GFR (Non-African American) 31.3; Potassium 4.1 mmol/L (3.5-5.1)
[2020-08-21] MEDS: ALBUTEROL HFA 8 GM INHALER INH SCH ×4 (07:31→19:31)
[2020-08-21] MEDS: IPRATROPIUM BROMIDE HFA INHALER INH SCH ×4 (07:32→19:31)
[2020-08-21] MEDS: PANTOprazole 40 MG TAB PO SCH ×2 (07:45→20:55)
[2020-08-21] MEDS: FERROUS SULFATE 325 MG TAB PO SCH ×2 (07:45→20:55)
[2020-08-21] MEDS: FLUTICASONE/VILANTEROL 100/25MCG 14 PUFFS/INHALER INH SCH (07:45)
[2020-08-21] MEDS: SODIUM BICARBONATE 650 MG TAB PO SCH (07:45)
[2020-08-21] MEDS: FENOFIBRATE NANOCRYSTALLIZED 145 MG TABLET PO SCH (07:46)
[2020-08-21] MEDS: ATENOLOL 25 MG TABLET PO SCH (07:46)
[2020-08-21] MEDS: ROSUVASTATIN CALCIUM 10 MG TAB PO SCH (07:46)
[2020-08-21] MEDS: DOCUSATE SODIUM 100 MG CAP PO SCH ×2 (07:46→20:54)
[2020-08-21] MEDS: CLOPIDOGREL BISULFATE 75 MG TAB PO SCH (07:46)
[2020-08-21] MEDS: ASPIRIN 81 MG ECTAB PO SCH (07:47)
[2020-08-21] MEDS: HEPARIN SOD 5,000 UNIT/0.5 ML VIAL SC SCH ×2 (07:51→20:55)
--- NOTE | 2020-08-21 10:01 | Nephrology Progress Note ---
Date of Service August 21, 2020 Assessment & Plan (1) Acute on chronic renal failure: * XOCHITL resolved. Kidney function is back to baseline * Urine sediment is negative for blood, protein or ATN casts. Abdominal imaging is negative for hydronephrosis * Renal US reveals cortical thinning suggestive of microvascular disease. Baseline Cr 1.5 - 2.0 mg/dL * Will stop NaHCO3 supplement * No further Nephrology evaluation indicated at this time. Recommend removing Retana catheter and allowing patient to void on his own. Will defer decision to resume outpatient diuretic and BP medications to primary service. Will sign off. Please call if further assistance is needed (2) Near syncope: * Furosemide, Amlodipine and Spironolactone were held due to volume depletion and hypotension (3) Hyponatremia: * Corrected Admission and Anticipated Discharge Date Admission Date: August 18, 2020 Subjective Mr. Rangel was seen & examined in his hospital room this morning. He denied fever, angina or dyspnea. He voiced no new medical concerns. Review of Systems Constitutional: no fever Eyes: no problem reported Ear, Nose, Mouth, Throat: no problem reported Respiratory: no dyspnea Cardiovascular: no chest pain, no palpitations and no edema Gastrointestinal: no abdominal pain and no nausea Musculoskeletal: no back pain Integumentary: no rash Neurologic: no confusion Physical Exam Constitutional: + frail appearing; no acute distress ENMT: Mouth: no oral mucosal abnormality Respiratory: Auscultation: + rales Cardiovascular: Rate/Rhythm: regular rate and regular rhythm Extremities: no edema Musculoskeletal: Extremities: no cyanosis Skin: + turgor decreased; no lesions Results & Data ([facility]) Vital Signs (Past 12 Hours) Vital Signs Temp Pulse Pulse Resp BP BP Pulse Ox 08/21/20 07:55 36.8 C 51 L 16 108/62 100 08/21/20 07:32 60 16 100 08/21/20 03:02 36.8 C 55 L 16 100/55 L 99 08/20/20 23:22 36.4 C L 55 L 18 101/53 L 100 08/20/20 23:07 57 L Laboratory Tests 08/21/20 08/21/20 05:28 05:28 WBC 7.57 Hgb 9.8 L Hct 29.1 L Plt Count 205 Sodium 136 Potassium 4.1 Chloride 106 BUN 67 H Creatinine 1.95 H D Glucose 90 Calcium 7.7 L PG Care Time/CCT Total # of Minutes Spent Total Time Spent with Patient: Total time spent is greater than 50% in coordination of care (as documented) at patient's floor/unit and/or counseling patient: Coding Level of Care Code 56697 Subseq Hosp Care Lvl 3 Diagnoses Acute on chronic renal failure N17.9; N18.9 Acute renal failure type: unspecified Chronic kidney disease stage: unspecified stage Near syncope R55 Hyponatremia E87.1 (1) Acute on chronic renal failure Acute renal failure type: unspecified Chronic kidney disease stage: unspecified stage Qualified Code(s): N17.9 - Acute kidney failure, unspecified; N18.9 - Chronic kidney disease, unspecified
--- NOTE | 2020-08-21 18:38 | Hospitalist Progress Note ---
Date of Service August 21, 2020 Assessment & Plan (1) Acute on chronic renal failure: Continue IV fluid rehydration. Diuretics are on hold. Cr is improving and at baseline Renal ultrasound noted for cyst vs obstruction, no change from 12/2018 US Serial lab studies Renal feels pre-renal, possibly ATN. d/c manuel today and monitor (2) Near syncope: Due to volume depletion and hypotension. Amlodipine discontinued. Continue IV fluid rehydration. 1st degree AVB noted on EKG, seen prior (first in system is 2019)--may be something to continue if ongoing near syncope once hydration status is addressed ECHO 11/2017 with EF 55-60%, not redone given above (3) Hyponatremia: Mild. Continue normal saline hydration. Serial lab studies. Check serum osmolarity (4) Elevated troponin: Mild. Most likely due to renal failure. He denies chest pain. Will trend. Telemetry (5) Mixed restrictive and obstructive lung disease: Known interstitial lung disease. Currently stable (6) Chronic respiratory failure with hypoxia, on home O2 therapy: He uses 4 L oxygen at home. Currently stable Disposition: To be determined. OT recs for likely home, PT recs for home with home PT vs rehab speech therapy recs for easy to chew and small bites Admission and Anticipated Discharge Date Admission Date: August 18, 2020 Subjective Pt feels fine. Tolerating PO. Pt denies fever, SOB, chest pain, abd pain, n/v/c/d, LE pain or swelling. Review of Systems Review of Systems: Pertinent positives and negatives reviewed in HPI--all others negative Physical Exam Constitutional: well developed and + thin Eyes: normal visual pina by confrontation and + anicteric sclerae Neck: normal visual inspection and trachea midline Respiratory: normal respiratory effort, lungs clear to auscultation Cardiovascular: Rate/Rhythm: regular rate and regular rhythm Gastrointestinal (Abdomen): Inspection/Auscultation: abdomen not distended Percussion/Palpation: abdomen soft; abdomen nontender Musculoskeletal: Head/Neck/Chest: normocephalic and head atraumatic Skin: no rashes, warm and dry Neurologic: awake; not confused Speech / Cognition: normal speech Psychiatric: A+Ox3, euthymic affect Results & Data Results & Data ([facility]) Vital Signs (Past 12 Hours) Vital Signs Temp Pulse Pulse Resp BP Pulse Ox 08/21/20 16:15 66 16 100 02/21/21 15:51 35.5 C L 70 16 144/82 H 96 08/21/20 14:30 65 08/21/20 12:26 36.5 C 57 L 16 101/53 L 100 08/21/20 12:11 66 16 99 08/21/20 07:55 36.8 C 51 L 16 108/62 100 08/21/20 07:32 60 16 100 08/21/20 07:30 49 L PG Care Time/CCT Total # of Minutes Spent Total Time Spent with Patient: Total time spent is greater than 50% in coordination of care (as documented) at patient's floor/unit and/or counseling patient: Coding Level of Care Code 70376 Subseq Hosp Care Lvl 2 Diagnoses Acute on chronic renal failure N17.9; N18.9 Acute renal failure type: unspecified Chronic kidney disease stage: unspecified stage Near syncope R55 Hyponatremia E87.1 Elevated troponin R77.8 Mixed restrictive and obstructive lung disease J44.9; J98.4 Chronic respiratory failure with hypoxia, on home O2 therapy J96.11; Z99.81 (1) Acute on chronic renal failure Acute renal failure type: unspecified Chronic kidney disease stage: unspecified stage Qualified Code(s): N17.9 - Acute kidney failure, unspecified; N18.9 - Chronic kidney disease, unspecified
[2020-08-21] MEDS: TAMSULOSIN HCL 0.4 MG CAP PO SCH (20:55)
[2020-08-22 06:48] LABS: Basophils # (auto) 0.01 K/uL (0-0.2); Basophils % (auto) 0.1 %; Eosinophils # (auto) 0.28 K/uL (0-0.5); Eosinophils % (auto) 3.5 %; Hematocrit (blood only) 29.6 % (42-52); Hemoglobin 9.8 g/dL (14.0-18.0); Immature Granulocytes # (auto) 0.11 K/uL (0.00-0.02); Immature Granulocytes % (auto) 1.4 %; Lymphocytes # (auto) 1.08 K/uL (1.2-3.4); Lymphocytes % (auto) 13.6 %; Mean Corpuscular Hemoglobin 31.2 pg (25-34); Mean Corpuscular Hgb Conc 33.1 g/dL (32-36); Mean Corpuscular Volume 94.3 fL (80-100); Mean Platelet Volume 12.2 fL (7.4-10.4); Monocytes # (auto) 0.81 K/uL (0.11-0.59); Monocytes % (auto) 10.2 %; Neutrophils # (auto) 5.66 K/uL (1.4-6.5); Neutrophils % (auto) 71.2 %; Platelet Count 227 K/uL (130-400); RDW Coefficient of Variation 13.7 % (11.5-14.5); RDW Standard Deviation 47.5 fL (36.4-46.3); Red Blood Count 3.14 M/uL (4.7-6.1); White Blood Count 7.95 K/uL (4.8-10.8)
[2020-08-22 07:22] LABS: Calcium 8.4 mg/dl (8.5-10.1); Creatinine Clr Calc Pharmacy 30.5 ml/min; Est GFR (African American) 40.8; Est GFR (Non-African American) 35.2; Potassium 3.7 mmol/L (3.5-5.1)
[2020-08-22] MEDS: IPRATROPIUM BROMIDE HFA INHALER INH SCH ×4 (07:58→19:29)
[2020-08-22] MEDS: FLUTICASONE/VILANTEROL 100/25MCG 14 PUFFS/INHALER INH SCH (07:58)
[2020-08-22] MEDS: FENOFIBRATE NANOCRYSTALLIZED 145 MG TABLET PO SCH (07:59)
[2020-08-22] MEDS: PANTOprazole 40 MG TAB PO SCH ×2 (07:59→20:43)
[2020-08-22] MEDS: FERROUS SULFATE 325 MG TAB PO SCH ×2 (07:59→20:43)
[2020-08-22] MEDS: ATENOLOL 25 MG TABLET PO SCH (07:59)
[2020-08-22] MEDS: ASPIRIN 81 MG ECTAB PO SCH (07:59)
[2020-08-22] MEDS: DOCUSATE SODIUM 100 MG CAP PO SCH ×2 (07:59→20:44)
[2020-08-22] MEDS: CLOPIDOGREL BISULFATE 75 MG TAB PO SCH (07:59)
[2020-08-22] MEDS: ROSUVASTATIN CALCIUM 10 MG TAB PO SCH (08:00)
[2020-08-22] MEDS: HEPARIN SOD 5,000 UNIT/0.5 ML VIAL SC SCH ×2 (08:00→20:45)
[2020-08-22] MEDS: ALBUTEROL HFA 8 GM INHALER INH SCH ×4 (08:12→19:29)
--- NOTE | 2020-08-22 17:09 | Hospitalist Progress Note ---
Date of Service August 22, 2020 Assessment & Plan (1) Acute on chronic renal failure: Cr is improving and at baseline Renal ultrasound noted for cyst vs obstruction, no change from 12/2018 US Serial lab studies Renal feels pre-renal, possibly ATN. No issues with UOP s/p manuel d/c Pt has been off of lasix and spironolactone since admission (2) Near syncope: Due to volume depletion and hypotension. Amlodipine discontinued. Continue IV fluid rehydration. 1st degree AVB noted on EKG, seen prior (first in system is 2019)--may be something to continue if ongoing near syncope once hydration status is addressed ECHO 11/2017 with EF 55-60%, not redone given above (3) Hyponatremia: Mild. Continue normal saline hydration. Serial lab studies. Check serum osmolarity (4) Elevated troponin: Mild. Most likely due to renal failure. He denies chest pain. Will trend. Telemetry (5) Mixed restrictive and obstructive lung disease: Known interstitial lung disease. Currently stable (6) Chronic respiratory failure with hypoxia, on home O2 therapy: He uses 4 L oxygen at home. Currently stable Disposition: Home with HHN/PT OT recs for likely home, PT recs for home with home PT speech therapy recs for easy to chew and small bites Pt is stable for d/c, however issues with transportation due to weather (7) HTN (hypertension): Pt is on several medications for HTN on admission His BP has been quite stable in the 110s-120s on only atenolol I cannot find other reason for diuretic use ECHO 2018 was WNL It seems reasonable to hold these medications given the stable BP while they were held for the above side effects (8) Hypokalemia: Pt was taking K supplementation on admission, assuming related to lasix use This has been held and K has been WNL Will continue to hold as long as pt is off of lasix Admission and Anticipated Discharge Date Admission Date: August 18, 2020 Subjective Pt continues to feel improved. He is a bit concerned about feeling weak. Tolerating PO. Pt denies fever, SOB, chest pain, abd pain, n/v/c/d, LE pain or swelling. Pt was able to ambulate to the bathroom with minimal assistance per CM. Review of Systems Review of Systems: Pertinent positives and negatives reviewed in HPI--all others negative Physical Exam Constitutional: well developed and + thin Eyes: normal visual pina by confrontation and + anicteric sclerae Neck: normal visual inspection and trachea midline Respiratory: normal respiratory effort, lungs clear to auscultation Cardiovascular: Rate/Rhythm: regular rate and regular rhythm Gastrointestinal (Abdomen): Inspection/Auscultation: abdomen not distended Percussion/Palpation: abdomen soft; abdomen nontender Musculoskeletal: Head/Neck/Chest: normocephalic and head atraumatic Skin: no rashes, warm and dry Neurologic: awake; not confused Speech / Cognition: normal speech Psychiatric: A+Ox3, euthymic affect Results & Data Results & Data ([facility]) Vital Signs (Past 12 Hours) Vital Signs Temp Pulse Pulse Resp BP Pulse Ox 08/22/20 15:47 36.4 C L 75 20 129/71 100 08/22/20 11:28 36.4 C L 90 16 110/67 100 08/22/20 09:02 57 L 08/22/20 07:14 36.5 C 55 L 20 120/68 95 PG Care Time/CCT Total # of Minutes Spent Total Time Spent with Patient: Total time spent is greater than 50% in coordination of care (as documented) at patient's floor/unit and/or counseling patient: Coding Level of Care Code 41291 Subseq Hosp Care Lvl 2 Diagnoses Acute on chronic renal failure N17.9; N18.9 Acute renal failure type: unspecified Chronic kidney disease stage: unspecified stage Near syncope R55 Hyponatremia E87.1 Elevated troponin R77.8 Mixed restrictive and obstructive lung disease J44.9; J98.4 Chronic respiratory failure with hypoxia, on home O2 therapy J96.11; Z99.81 HTN (hypertension) I10 Hypertension type: unspecified Hypokalemia E87.6 (1) Acute on chronic renal failure Acute renal failure type: unspecified Chronic kidney disease stage: unspecified stage Qualified Code(s): N17.9 - Acute kidney failure, unspecified; N18.9 - Chronic kidney disease, unspecified (2) HTN (hypertension) Hypertension type: unspecified Qualified Code(s): I10 - Essential (primary) hypertension
[2020-08-22] MEDS: TAMSULOSIN HCL 0.4 MG CAP PO SCH (20:44)
[2020-08-23] MEDS: ALBUTEROL HFA 8 GM INHALER INH SCH ×2 (07:10→11:09)
[2020-08-23] MEDS: IPRATROPIUM BROMIDE HFA INHALER INH SCH ×2 (07:10→11:09)
[2020-08-23] MEDS: HEPARIN SOD 5,000 UNIT/0.5 ML VIAL SC SCH (08:18)
[2020-08-23] MEDS: ROSUVASTATIN CALCIUM 10 MG TAB PO SCH (08:19)
[2020-08-23] MEDS: ATENOLOL 25 MG TABLET PO SCH (08:19)
[2020-08-23] MEDS: FLUTICASONE/VILANTEROL 100/25MCG 14 PUFFS/INHALER INH SCH (08:19)
[2020-08-23] MEDS: FERROUS SULFATE 325 MG TAB PO SCH (08:20)
[2020-08-23] MEDS: CLOPIDOGREL BISULFATE 75 MG TAB PO SCH (08:20)
[2020-08-23] MEDS: PANTOprazole 40 MG TAB PO SCH (08:21)
[2020-08-23] MEDS: FENOFIBRATE NANOCRYSTALLIZED 145 MG TABLET PO SCH (08:21)
[2020-08-23] MEDS: ASPIRIN 81 MG ECTAB PO SCH (08:22)
[2020-08-23] MEDS: DOCUSATE SODIUM 100 MG CAP PO SCH (08:22)
--- NOTE | 2020-08-23 12:43 | Discharge Summary ---
Date of Service August 23, 2020 Admission HPI Per Admitting Provider Mr. Sathish Rangel is a 80 yo M here for lightheadedness. He has a past medical history of pulmonary fibrosis, carotid artery stenosis, HTN, CKD III with a baseline cr. of 1.5 - 2, and hernia. He said that he has been feeling lightheaded when standing for the last week. He couldn't do anything and it has been getting progressively worse. He said that he has had 2 falls and was admitted 3 months prior for a fall. I asked about his weight, and he does not have a scale but does note that his clothes have been loose lately. He said that "nothing tastes good." Over the last 24 hours he ate 1/2 bowl of chili but ot herwise in the last 4-5 days he has only taken in fluids. He did mention having some trouble with swallowing and choking. He did not have his teeth with him but was going to have a friend bring them. Friend Maxi [phone] Corroborated information with patient not eating well over the last few months, requiring a cane to get around his apartment over the last few days. He keeps the apartment warm and dry at 75-80 degrees. The apartment has been clean. Social: Former smoker 20 pack years quit 40+ years ago, no etoh or rec. drug use Principal Diagnosis Pt feels well today. He feels he is getting stronger. He is not so worried about going home now. He is eating without issue. Pt denies fever, SOB, chest pain, abd pain, n/v/c/d, LE pain or swelling. Discharge Exam Constitutional well developed and + thin Eyes normal visual pina by confrontation and + anicteric sclerae Neck normal visual inspection and trachea midline Respiratory normal respiratory effort, lungs clear to auscultation Cardiovascular Rate/Rhythm: regular rate and regular rhythm Gastrointestinal (Abdomen) Inspection/Auscultation: abdomen not distended Percussion/Palpation: abdomen soft; abdomen nontender Musculoskeletal Head/Neck/Chest: normocephalic and head atraumatic Skin no rashes, warm and dry Neurologic awake; not confused Speech / Cognition: normal speech Psychiatric A+Ox3, euthymic affect Discharge Data Allergies Allergy/AdvReac Type Severity Reaction Status Date / Time No Known Allergies Allergy Verified 08/18/20 18:40 Consultations 08/18/20 18:41 ED Decision to Admit Stat Ordered Studies 08/18/20 15:33 CT head/brain wo con Stat 08/18/20 16:52 CT abd pelvis wo con Stat 08/19/20 09:30 US renal/blad retro comp Urgent Hospital Course (1) Acute on chronic renal failure: Cr is improving and at baseline Renal ultrasound noted for cyst vs obstruction, no change from 12/2018 US Serial lab studies Renal feels pre-renal, possibly ATN. No issues with UOP s/p manuel d/c Pt has been off of lasix and spironolactone since admission (2) Near syncope: Due to volume depletion and hypotension. Amlodipine discontinued. Continue IV fluid rehydration. 1st degree AVB noted on EKG, seen prior (first in system is 2019)--may be something to continue if ongoing near syncope once hydration status is addressed ECHO 11/2017 with EF 55-60%, not redone given above It does seem possible that pt's sx were related to multiple medications for HTN. HTN meds changed as noted below Advised to monitor BP Goal for pt is 140s-150s systolic I did discuss all of this with pt and his brother (via phone) and they are in agreement with current plan. (3) Hyponatremia: Mild. Continue normal saline hydration. Serial lab studies. Check serum osmolarity (4) Elevated troponin: Mild. Most likely due to renal failure. He denies chest pain. Will trend. Telemetry (5) Mixed restrictive and obstructive lung disease: Known interstitial lung disease. Currently stable (6) Chronic respiratory failure with hypoxia, on home O2 therapy: He uses 4 L oxygen at home. Currently stable Disposition: Home with HHN/PT OT recs for likely home, PT recs for home with home PT speech therapy recs for easy to chew and small bites (7) HTN (hypertension): Pt is on several medications for HTN on admission His BP has been quite stable in the 110s-120s on only atenolol I cannot find other reason for diuretic use ECHO 2018 was WNL It seems reasonable to hold these medications given the stable BP while they were held for the above side effects (8) Hypokalemia: Pt was taking K supplementation on admission, assuming related to lasix use This has been held and K has been WNL Will continue to hold as long as pt is off of lasix Total Time Total Time Spent Total Time Spent (In Minutes): >30 Total Time Includes: Examination of the Patient, Discharge Planning, Medication Reconciliation, Communication With Other Providers and Other Discharge Plan Discharge Items Patient Disposition: Home - Home Health Services Reason For Visit: KIDNEY INJURY Discharge Diagnosis: Dehydration, falls, pre-syncope Activity: Resume your previous activity Non-emergency contact: Primary Care Provider Call non-emergency contact if: you have any medication questions and your symptoms worsen Follow-up/Referrals: Yisel Pittman MD [Primary Care Provider] - 08/26/20 10:00 am (You have a follow up appt, with Cristina Sanz NP. Please arrive 15 minutes prior to your appt time. Your appt is 08/26 @ 10am. It is important that you keep this appt, if for any reason this appt, does not fit your schedule please call [phone] to reschedule.) Diet: Regular Diet Texture: Easy to Chew Diet Comment: small bites Addtl Attending Provider Instructions: You should be seen by your PCP in the next 3--5 days You should monitor your blood pressure at home as we have changed several of your blood pressure mediations. You should write these down and take them to your follow up appointments. Pending Studies at Discharge: No Stand-Alone Forms: My [facility] Filament Labs, Smoking Cessation Medications and DC Order Prescriptions: New tamsulosin 0.4 mg Capsule 0.4 mg PO HS Qty: 30 RF: 0 Continued pantoprazole 40 mg tablet,delayed release (DR/EC) 40 mg PO BID Qty: 180 RF: 1 Combivent Respimat 20-100 mcg/actuation mist 1 puff INHALATION QID Qty: 12 RF: 1 fluticasone propion-salmeterol [Advair Diskus] 250-50 mcg/dose blister with device 1 inh INH BID Qty: 180 RF: 1 rosuvastatin 20 mg tablet 20 mg PO DAILY Qty: 90 RF: 1 atenolol 25 mg tablet 12.5 mg PO DAILY Qty: 45 RF: 1 fenofibrate nanocrystallized 145 mg tablet 145 mg PO DAILY Qty: 90 RF: 1 clopidogrel 75 mg tablet 75 mg PO DAILY Qty: 90 RF: 1 docusate sodium [Colace] 100 mg capsule 100 mg PO BID Qty: 180 RF: 1 hydrocodone-acetaminophen 5-325 mg tablet 1 tab PO TID PRN (Reason: pain) Qty: 30 RF: 0 aspirin 81 mg tablet,delayed release (DR/EC) 81 mg PO DAILY Qty: 30 RF: 0 ferrous sulfate 325 mg (65 mg iron) tablet 325 mg PO BID Qty: 60 RF: 0 Discontinued furosemide 80 mg tablet 40 mg PO DAILY Qty: 45 RF: 1 potassium chloride 20 mEq tablet extended release 20 meq PO QAM Qty: 90 RF: 1 amlodipine 5 mg tablet 5 mg PO DAILY Qty: 90 RF: 3 spironolactone 100 mg tablet 100 mg PO DAILY Qty: 90 RF: 1 Discharge Orders: Discharge Order (Routine); Ordered 08/23/20 Ordered By: Ginette Ventura Admission Data Admit Date/Time: 08/18/20 21:26 Attending Provider: Ginette Ventura Admit Provider: Chandana Lemus Primary Care Provider: Yisel Pittman Other Providers: Elliott Crowe ; [place] Other Interventions: Discharge Summary Assessment (RN) Last Done: 08/23/20 12:58 Coding Level of Care Code D/C Day Management >30 mins Diagnoses Acute on chronic renal failure N17.9; N18.9 Acute renal failure type: unspecified Chronic kidney disease stage: unspecified stage Near syncope R55 Hyponatremia E87.1 Elevated troponin R77.8 Mixed restrictive and obstructive lung disease J44.9; J98.4 Chronic respiratory failure with hypoxia, on home O2 therapy J96.11; Z99.81 HTN (hypertension) I10 Hypertension type: unspecified Hypokalemia E87.6
== END 2020-08-23 13:28 | disposition home health service (06) | DRG 683 ==
LOC: ED 14:47 → 2W 21:26 → SUATTDRO 21:26 → 2W 22:14

== ENCOUNTER 2025-04-01 13:38 | Inpatient (IN) ==
[2025-04-01] MEDS ORDERED: ALUMINUM/MAGNESIUM SUSP 30 ML UDC PO PRN (14:09)
[2025-04-01] MEDS ORDERED: ONDANSETRON INJ 2 MG/ML 2 ML VIAL IV PRN ×2 (14:09→14:12)
[2025-04-01] MEDS ORDERED: ACETAMINOPHEN 325 MG TAB PO PRN (14:09)
[2025-04-01] MEDS ORDERED: MoRPHine SULFATE 2 MG/ML CARP IV PRN (14:12)
[2025-04-01] MEDS ORDERED: HYOSCYAMINE SULFATE 0.125 MG TAB SL PRN (14:12)
[2025-04-01] MEDS ORDERED: HALOPERIDOL ORAL SOLN 2 MG/ML PO PRN (14:12)
--- NOTE | 2025-04-01 14:21 | History & Physical Report ---
Date of Service April 01, 2025 Assessment & Plan (1) Need for comfort care: (2) Palliative care by specialist: Plan #end-of-life/hospice care - comfort care order set initiated. Thus far has done reasonably well with morphine, occasional Ativan. Haldol added as a backup - Zofran and Compazine as needed for nausea vomit - regular diet for comfort ad zuleika - consult inpatient hospice - consulted Case management Admission and Anticipated Discharge Date Admission Date: April 01, 2025 History of Present Illness Chief Complaint: Hospice Primary Care Provider: Yisel Pittman MD 85-year-old male history of iron deficiency anemia, stroke, stage III CKD, hypertension, venous insufficiency hospitalized for shortness of breath On 03/24. He had been improving steadily and then on hospital day 5 03/29 had an acute decline/ decompensation. Rapid drop in hemoglobin severe abdominal pain. Collective decision making with the patient and family at the bedside was to transfer to comfort cares. He has done so has had modest control of his overall symptomatology. He was referred for general inpatient hospice and accepted today. He is admitted for ongoing hospice and end-of-life care Allergies Allergy/AdvReac Type Severity Reaction Status Date / Time No Known Allergies Allergy Verified 01/29/25 09:56 Past Med/Surg History Problem List (Updated 03/31/25 @ 16:44 by LUAREANO Amezquita) Need for comfort care Counseling regarding goals of care SOB (shortness of breath) on exertion Palliative care by specialist Aspiration pneumonia Hypernatremia Hypoxia (Acute) Acute hypotension (Acute) Sepsis (Acute) Bed bug bite Septic shock Elevated alkaline phosphatase level Pre-diabetes Hypokalemia Hyponatremia (Acute) Mixed restrictive and obstructive lung disease (Chronic) Pulmonary fibrosis (Chronic) Allergic rhinitis (Chronic) Carotid artery stenosis, asymptomatic (Chronic) Cervicalgia (Chronic) Former smoker (Chronic) Hearing difficulty (Chronic) High triglycerides (Chronic) Hoarseness (Chronic) Hypercholesterolemia (Chronic) Late effects of cerebrovascular disease (Chronic) Right carotid bruit (Chronic) Venous insufficiency (Chronic) Ventral hernia (Chronic) Duodenal ulcer (Chronic) Chronic respiratory failure with hypoxia, on home O2 therapy (Chronic) Anemia (Chronic) COPD (chronic obstructive pulmonary disease) (Chronic) Sinus bradycardia (Chronic) HTN (hypertension) (Chronic) Chronic kidney disease, stage 3 (Chronic) Chronic venous insufficiency (Chronic) Medical History History of CVA (cerebrovascular accident) Allergic rhinitis Mixed restrictive and obstructive lung disease Pulmonary fibrosis Sinus bradycardia Orthostasis Dysphagia Chronic venous insufficiency Chronic kidney disease, stage 3 Carotid bruit present HTN (hypertension) Surgical History History of umbilical hernia repair Family History Father Stroke Cancer Mother Hypertension Denies family history of Ovarian cancer Prostate cancer Myocardial infarction Breast cancer Colorectal cancer Social History (Updated 06/06/23 @ 09:37 by Clau Fagan LPN) Smoking Status: Former smoker Tobacco Type: Cigarettes Age Started Using Tobacco: 19; Age Quit Using Tobacco: 62; packs per day: 1; Second Hand Exposure: No; Do You Dip or Chew Tobacco: No; Hx Alcohol Use: Yes Alcohol type: wine and hard liquor Alcohol Intake Frequency Comment: rarely Hx Substance Use: No Preferred Language: Kiswahili Communication Ability: Effective Visual Impairment: Limited Hearing Ability: Normal Lace Roller Operator Required: No Beliefs That Will Affect Care: None marital status: Single Current Living Situation: Alone Current Living Situation Comment: alone in an apartment current occupational status: retired 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 How many Children do You have: 0 Feels Safe at Home: Yes Childhood Exposure to Second-Hand Smoke: Yes Diet: regular Diet Comment: regular caffeine: Yes during the past year weight has: remained stable Dental Care, Regularly: Yes Physical Activity Frequency: Daily Physical Activity Frequency Comment: vibration platform machine, 15-20 min per day Seatbelt Use: always Sunscreen Use: No Assistive Devices: Cane and Oxygen - Continuous Review of Systems Review of Systems: unavailable secondary to current mental status Physical Exam Constitutional: Lethargic, somnolent, noted pallor Eyes: Sclera clear Respiratory: Fine crackles bilateral Cardiovascular: Bradycardic, no murmurs Gastrointestinal (Abdomen): tender over left abdomen, stable, quiet bowel sounds Musculoskeletal: No edema Skin: Noted pallor as above Neurologic: Somnolent, briefly arousable, comfortable at rest Results & Data Results & Data Vital Signs (Past 12 Hours) deferred secondary to comfort care Code Status & VTE Plan VTE Prophylaxis Plan VTE Prophylaxis will be ordered: No Reason for no VTE drug order: Treatment not indicated PG Care Time/CCT Total # of Minutes Spent Total Time Spent with Patient: Total time spent is greater than 50% in coordination of care (as documented) at patient's floor/unit and/or counseling patient: Coding Level of Care Code 93224 INT INP/OBS CARE MIN Diagnoses Need for comfort care Palliative care by specialist Z51.5
[2025-04-01] MEDS: HYDROmorphone INJ 0.5 MG/0.5 ML SYR IV PRN (22:53)
[2025-04-02] MEDS: LORazepam Inj 0.5 MG in SYRINGE 0.25 ML IV PRN (00:39)
--- NOTE | 2025-04-02 14:49 | Hospitalist Progress Note ---
Date of Service April 02, 2025 Assessment & Plan (1) Need for comfort care: (2) Palliative care by specialist: Plan #end-of-life/hospice care - comfort care order set initiated. Thus far has done reasonably well with morphine, occasional Ativan. Haldol added as a backup - Zofran and Compazine as needed for nausea vomit - regular diet for comfort ad zuleika - consult inpatient hospice - consulted Case management - Dilaudid replaces morphine to eliminate itching, continue with Ativan and/or Haldol as needed Admission and Anticipated Discharge Date Admission Date: April 01, 2025 Subjective doing okay overall. Current regimen is better. Seems to be less itching with the Dilaudid versus morphine. When his brother came in this morning he reports that Sathish was exhibiting more signs of pain some of the jerking motions. After he was medicated those have since improved. Otherwise no new events or concerns per family and staff. Review of Systems Review of Systems: unavailable secondary to current mental status Physical Exam Constitutional: Lethargic, somnolent, noted pallor Eyes: Sclera clear Respiratory: Fine crackles bilateral Cardiovascular: Bradycardic, no murmurs Gastrointestinal (Abdomen): tender over left abdomen, stable, quiet bowel sounds Musculoskeletal: No edema Skin: Noted pallor as above Neurologic: Somnolent, briefly arousable, comfortable at rest Results & Data Results & Data Vital Signs (Past 12 Hours) Vital Signs O2 Del Method O2 Flow Rate 04/02/25 07:50 Nasal Cannula 2 PG Care Time/CCT Total # of Minutes Spent Total Time Spent with Patient: Total time spent is greater than 50% in coordination of care (as documented) at patient's floor/unit and/or counseling patient: Coding Level of Care Code 13161 SUB INP/OBS CARE 07/25MIN Diagnoses Need for comfort care Palliative care by specialist Z51.5
[2025-04-03] MEDS: GLYCOPYRROLATE 0.2 MG/ML VIAL IV PRN (12:19)
--- NOTE | 2025-04-03 12:33 | Hospitalist Progress Note ---
Date of Service April 03, 2025 Assessment & Plan (1) Need for comfort care: (2) Palliative care by specialist: Plan #end-of-life/hospice care - comfort care order set initiated. - Morphine exchanged to Dilaudid on 05/03 for itching - will add diazepam 5 mg every 4 hours as needed for anxiety or breakthrough given the difficulty getting the Ativan to the bedside, will continue with the Ativan as needed as a shorter acting - Zofran and Compazine as needed for nausea vomit - regular diet for comfort ad zuleika, he has not been awake alert or shown any interest in the last 24-hour - consult inpatient hospice - consulted Case management Admission and Anticipated Discharge Date Admission Date: April 01, 2025 Subjective symptoms mostly well-controlled through the night this morning in the last half hour so he is exhibiting signs of pain discomfort. He was given 0.5 mg of Dilaudid with only limited improvement. They are awaiting the Ativan from pharmacy given the current shortage is a delayed getting it to the bedside. Otherwise no new events or concerns per family or per nursing staff. Physical Exam Constitutional: Lethargic, somnolent, noted pallor Eyes: Sclera clear Respiratory: Fine crackles bilateral Cardiovascular: Bradycardic, no murmurs Gastrointestinal (Abdomen): tender over left abdomen, stable, quiet bowel sounds Musculoskeletal: No edema Skin: Noted pallor as above Neurologic: Somnolent, briefly arousable, comfortable at rest PG Care Time/CCT Total # of Minutes Spent Total Time Spent with Patient: Total time spent is greater than 50% in coordination of care (as documented) at patient's floor/unit and/or counseling patient: Coding Level of Care Code 64900 SUB INP/OBS CARE 2/35MIN Diagnoses Need for comfort care Palliative care by specialist Z51.5
[2025-04-03] MEDS ORDERED: NALOXONE HCL 0.4 MG/1 ML VIAL/CARP IV PRN (15:13)
[2025-04-03] MEDS: HYDROmorphone PCA 30 MG/30 ML IV PRN (16:15)
[2025-04-03] MEDS: SODIUM CHLORIDE 0.9% 1,000 ML IV SCH (16:20)
--- NOTE | 2025-04-04 10:19 | Death Pronouncement Note ---
Date of Service April 04, 2025 Pronouncement Note Admission Date Admission Date: April 01, 2025 Date and Time of Time of : 08:22 Contributing Factors (1) Need for comfort care: Contributing factors: Blood Loss Anemia/GI Bleed (2) Palliative care by specialist: Contributing factors: Hypoxic Respiratory Failure Aspiration Pneumonia Dysphagia Oxygen Dependent COPD Hospital Course Hospital Course: 85-year-old male history of oxygen dependent COPD, ongoing dysphagia, admitted with emergency department on 03/24 with acute hypoxemia related to aspiration pneumonia. He was hospitalized for ongoing antibiotic treatment evaluation and assessment. For the first several days of hospitalization his condition stabilized and gradually started to improve. Risks of recurrent/ chronic aspiration noted. Patient was evaluated by palliative care decision making is that he was to continue with oral intake for palliative reasons despite the risk of recurrent aspiration. It was established during this time that he did not want he Roka measures only supportive cares. On hospital day 5 he had an abrupt decompensation with hypotension, abrupt onset abdominal pain and acute decline in his hemoglobin presumably related to GI bleed. Care conference with family discussed evaluation and management at that time per the patient's and family's wishes he was transferred to comfort cares and lieu of further evaluation, no transfusion, no surgical procedures. No imaging or further diagnostic testing. Patient was transferred to comfort cares on 03/30. Admitted to inpatient hospice. Passed uneventfully on 04/04/2025 with his brother at his bedside. At 8:22 AM. Summary Additional details: alerted by nursing at 8:22 AM patient had stopped with spontaneous respirations. I evaluated patient at the bedside no spontaneous respirations, no heart tones heard. Pupils fixed and dilated. Time of 821. Brother at the bedside. Will notify family and postmortem supportive services Additional Data Attending physician: Larry Bailon MD Coding Level of Care Code 77869 IN/OBS DISCH 30 MIN/LESS Diagnoses Need for comfort care Palliative care by specialist Z51.5 Time Spent (min) 22
== END 2025-04-04 10:24 | disposition expired | DRG 177 ==
LOC: 3E 14:02